=== PATIENT | male | born 1930 | race Caucasian/White ===

== ENCOUNTER → 2016-08-03 | Outpatient (CLI) | payer OTHER, MEDICARE | LOC: BHFA 11:30 | PROVIDERS: ATTEND Internal Medicine Cardiovascular Disease | DX: I08.0 Rheumatic disorders of both mitral and aortic valves (principal); I10 Essential (primary) hypertension; E78.00 Pure hypercholesterolemia, unspecified ==

== ENCOUNTER → 2016-08-24 | Outpatient (CLI) | payer OTHER, MEDICARE | LOC: BHFA 13:15 | PROVIDERS: ATTEND Internal Medicine Cardiovascular Disease | DX: I35.1 Nonrheumatic aortic (valve) insufficiency (principal); R06.00 Dyspnea, unspecified; R94.31 Abnormal electrocardiogram [ECG] [EKG]; R06.02 Shortness of breath | CPT/HCPCS: 78452; 93017; 93306; A9500 ==

== ENCOUNTER 2016-08-31 11:34 | Observation (INO) | payer OTHER, MEDICARE ==
[2016-08-31] MEDS ORDERED: ACETAMINOPHEN 325 MG TAB PO PRN (12:25)
[2016-08-31] MEDS ORDERED: TEMAZEPAM 15 MG CAP PO PRN (12:25)
[2016-08-31] MEDS ORDERED: ONDANSETRON DISINTEGRATING 4 MG TAB PO PRN (12:25)
[2016-08-31] MEDS ORDERED: ONDANSETRON 4 MG/2 ML VIAL IVP PRN (12:25)
[2016-08-31] MEDS ORDERED: NITROGLYCERIN 0.4 MG BTL SL PRN (12:25)
[2016-08-31] MEDS ORDERED: ASPIRIN 325 MG TAB PO ONE (12:34)
--- NOTE | 2016-08-31 12:42 | CPEKG ---
Heart Rate: 46 RR Interval: 1304 P-R Interval: 188 QRSD Interval: 106 QT Interval: 464 QTC Interval: 406 P Beaver: 27 QRS Beaver: -40 T Wave Beaver: -11 EKG Severity - ABNORMAL ECG - EKG Impression: SINUS BRADYCARDIA EKG Impression: LEFT ANTERIOR FASCICULAR BLOCK EKG Impression: LEFT VENTRICULAR HYPERTROPHY EKG Impression: UNCHANGED IN COMPARISON TO ECG FROM APR 2015 EKG Impression: NONSPECIFIC T ABNORMALITIES, INFERIOR LEADS Electronically Signed By: Wicho Gallardo 01-Sep-2016 13:01:57
[2016-08-31 12:48] LABS: % IMMATURE GRANULYOCYTES 0.4 % (0.0-1.1); ABSOLUTE IMMATURE GRANULOCYTES 0.03 10^3/uL (0.00-0.10); ADD DIFF? NO; ADD MORPH? NO; ADD SCAN? NO; ATYPICAL LYMPHOCYTE FLAG 10 (0-99); FRAGMENT RBC FLAG 0 (0-99); HEMATOCRIT 38.4 % (40.0-51.0); HEMOGLOBIN 13.6 g/dL (13.7-17.5); LEFT SHIFT FLG 0 (0-99); LIPEMIA HEMOLYSIS FLAG 90 (0-99); MEAN CELL HEMOGLOBIN 33.3 pg (27.9-34.1); MEAN CELL HEMOGLOBIN CONCENTR. 35.4 g/dL (32.4-36.7); MEAN CELL VOLUME 94.1 fL (81.5-99.8); MEAN PLATELET VOLUME 9.3 fL (8.7-11.7); PLATELET CLUMPS FLAG 0 (0-99); PLATELET COUNT 266 10^3/uL (150-400); RED BLOOD CELL COUNT 4.08 10^6/uL (4.40-6.38); RED CELL DISTRIBUTION WIDTH 12.7 % (11.5-15.2)
[2016-08-31 12:55] LABS: INR 1.07 (0.83-1.16); PROTIME(PATIENT) 13.8 SEC (12.0-15.0)
[2016-08-31 13:18] LABS: ALANINE AMINOTRANSFERASE 26 IU/L (21-72); ALBUMIN 4.2 g/dL (3.5-5.0); ALKALINE PHOSPHATASE 46 IU/L (38-126); ANION GAP 12 mEq/L (8-16); ASPARTATE AMINOTRANSFERASE 31 IU/L (17-59); BILIRUBIN,TOTAL 0.8 mg/dL (0.1-1.4); CALCIUM 9.6 mg/dL (8.5-10.4); CARBON DIOXIDE 21 mEq/l (22-31); CHLORIDE 105 mEq/L (97-110); CREATININE 0.9 mg/dL (0.7-1.3); GLOMERULAR FILTRATION RATE > 60; GLUCOSE 104 mg/dL (70-100); POTASSIUM 4.7 mEq/L (3.5-5.2); SODIUM 138 mEq/L (134-144); TOTAL PROTEIN 7.4 g/dL (6.3-8.2)
[2016-08-31 13:30] LABS: TROPONIN I < 0.012 ng/mL (0-0.034)
[2016-08-31] MEDS ORDERED: ALPRAZolam 0.5 MG TAB PO PRN (13:55)
--- NOTE | 2016-08-31 14:30 | PDCARPN ---
Cardiology Progress Note Chief Complaint: Patient reporting mild midsternal chest pressure. Assessment/Plan: Assessment: Please see my office note dated 08/04/1999 as history and physical. 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 He had reported increased shortness of breath with exertion. On August 24 he underwent echocardiogram which showed mildly dilated LV with normal LV systolic function no regional wall motion abnormalities, EF was estimated at 65% LA was severely dilated, mild aortic sclerosis, moderate to severe AI was noted, mild MR, mild TR and mild TR. RVSP was estimated to be within normal limits. He had also underwent MPI study, showing a medium size, mild intensity fixed mid to distal inferior lateral deficit consistent infarction, no transient ischemic dilation, no wall motion abnormalities. Results were discussed with him on last Monday, and he had been planned to undergo elective right and left coronary catheterization, scheduled for MondaySeptember 02. Unfortunately, he reports over the last day and a half having midsternal chest pressure, with associated symptoms of shortness of breath, no nausea, or diaphoresis. Reporting episodes can last up to 5-10 minutes. The come on spontaneously and then dissipate. He reports no significant weight gain, and has had no palpitations, lightheadedness, orthopnea , PND, near-syncope or syncopal events. Due to the new onset of chest pressure with shortness of breath, abnormal stress testing, it was decided that we will admit him today, cycle his troponins, and plan on for moving of his cardiac catheterization tomorrow morning. Plan: 1. Chest pressure: Patient reporting new onset of chest pressure last 2 days, electrocardiogram shows no significant change from office visit, negative troponin initially. Recent abnormal stress test, will plan on cycling his troponins, he will continue on current anti-platelet therapy of Plavix, and I will also have him take additional aspirin dosage. Due to known history of bradycardia with average heart rate in the 50s, will not start him on beta- blockers at this time. Plan cardiac catheterization in a.m.. If necessary we can always moved up to more urgent. 2. Aortic insufficiency: Has worsen off of most recent echocardiogram, patient reports ongoing shortness of breath, but no significant signs of heart failure. BNP within normal limits. Right and left heart catheterization scheduled for tomorrow. Pending those results, patient may benefit from valve replacement surgery, either traditional or TAVR. 3. Hypertension: Despite being on losartan and hydrochlorothiazide, he continues to have elevated systolic blood pressure. In office it has been shown to be continuously of 150s, today it is 157 despite taking his a.m. doses his BP medications. Will add 2.5 mg of Norvasc to his daily medication regime. 4. Hyperlipidemia: Will continue him on home dose statins, fasting lipid panel in a.m.. 5. Shellfish derived of allergy: Due the patient planning on receiving contrast during heart catheterization in a.m., will premedicate patient with Benadryl IV, Solu-Medrol, and Pepcid. 6. Code status: Patient reports he is a full code. 7. DVT precautions: Since patient is undergoing coronary catheterization in a.m., will not start him on any blood thinners at this time, unless troponins do bump. Have ordered for him to use Jeremy hose, patient is up as needed. 08/31/16 14:30 Subjective: Patient reporting mild midsternal chest pressure, comes on spontaneously dissipates in about 5 minutes. continues to experience dyspnea on exertion. Denies of any orthopnea, PND, edema, near-syncope or syncopal events. Reviewed/Discussed With: other (Dr Lopez) Objective: Vital Signs (8 Hrs) Temp Pulse Resp BP Pulse Ox 08/31/16 12:08 36.2 C 53 L 16 157/66 H 93 Intake/Output (24 Hrs) 08/30/16 08/31/16 09/01/16 05:59 05:59 05:59 Other: Weight 69.3 kg Result Diagrams: 08/31/16 10:48 08/31/16 10:48 Cardiac Labs: Cardiac Lab Results (72 Hrs) 08/31/16 10:48 Troponin I < 0.012 - Physical Exam Constitutional: healthy appearing, no apparent distress Ears, Nose, Mouth, Throat: moist mucous membranes Cardiovascular: regular rate and rhythm, systolic murmur ( 2 to 3/6 upper chest.), No no rubs, No jugular vein distention Peripheral Pulses: 1+: dorsalis-pedis (R), dorsalis-pedis (L), 2+: carotid (R), carotid (L) Respiratory: clear to auscultate bilat, no crackles, no wheezes, No expiratory wheeze Gastrointestinal: normoactive bowel sounds, no tenderness, no masses, No ascites Skin: warm, no edema Neurologic: AAOx3, CN II-XII grossly intact Psychiatric: cooperative, interactive, following commands ICD10 Worksheet Patient Problems: Problems Problem Status Onset Pulmonary fibrosis Acute Viral upper respiratory infection Acute
[2016-08-31] MEDS: DOXAZOSIN MESYLATE 4 MG TAB PO SCH (20:23)
[2016-08-31] MEDS: FINASTERIDE 5 MG TAB PO SCH (20:23)
[2016-08-31] MEDS: traZODone 100 MG TAB PO PRN (21:31)
[2016-09-01 04:40] LABS: ANION GAP 7 mEq/L (8-16); CALCIUM 8.9 mg/dL (8.5-10.4); CARBON DIOXIDE 27 mEq/l (22-31); CHLORIDE 106 mEq/L (97-110); CHOLESTEROL 139 mg/dL (140-220); CHOLESTEROL/HDL RATIO 3.23 RATIO (1.00-4.97); CREATININE 0.9 mg/dL (0.7-1.3); GLOMERULAR FILTRATION RATE > 60; GLUCOSE 98 mg/dL (70-100); HIGH DENSITY LIPOPROTEIN 43 mg/dL (40-65); LDL/HDL RATIO 1.79 RATIO (1.00-3.64); LOW DENSITY LIPOPROTEIN 77 mg/dL (80-100); MAGNESIUM 1.9 mg/dL (1.6-2.3); NON-HIGH DENSITY LIPOPROTEIN 96 mg/dL (90-129); POTASSIUM 4.6 mEq/L (3.5-5.2); SODIUM 140 mEq/L (134-144); TRIGLYCERIDE 95 mg/dL (40-150); VERY LOW DENSITY LIPOPROTEINS 19 mg/dL (8-25)
[2016-09-01 04:51] LABS: TROPONIN I < 0.012 ng/mL (0-0.034)
[2016-09-01] MEDS ORDERED: methylPREDNISolone SOD SUCC 125 MG/2 ML VIAL IVP ONE (06:00)
[2016-09-01] MEDS ORDERED: DIAZEPAM 5 MG TAB PO ONE (06:00)
[2016-09-01] MEDS ORDERED: NS 1,000 ML IV ONE (06:00)
[2016-09-01] MEDS ORDERED: diphenhydrAMINE 25 MG CAP PO ONE (06:00)
[2016-09-01] MEDS ORDERED: FAMOTIDINE 20 MG/NACL 50 ML IV ONE (06:00)
[2016-09-01] MEDS ORDERED: ASPIRIN EC 325 MG TAB PO ONE ×2 (06:00→08:41)
[2016-09-01] MEDS ORDERED: methylPREDNISolone SOD SUCC 125 MG/2 ML VIAL ONE (08:38)
[2016-09-01] MEDS ORDERED: FAMOTIDINE 20 MG/NACL/50 ML BAG IV ONE (08:38)
[2016-09-01] MEDS ORDERED: EPINEPHrine 1 MG/10 ML SYR IVP ONE (08:38)
[2016-09-01] MEDS ORDERED: DIAZEPAM 5 MG TAB ONE (08:41)
--- NOTE | 2016-09-01 08:49 | CPEKG ---
Heart Rate: 46 RR Interval: 1304 P-R Interval: 192 QRSD Interval: 106 QT Interval: 480 QTC Interval: 420 P Woodland: 25 QRS Woodland: -35 T Wave Woodland: -3 EKG Severity - ABNORMAL ECG - EKG Impression: SINUS BRADYCARDIA EKG Impression: LEFT VENTRICULAR HYPERTROPHY EKG Impression: NONSPECIFIC T ABNORMALITIES, INFERIOR LEADS Electronically Signed By: Wicho Gallardo 02-Sep-2016 12:57:24
[2016-09-01] MEDS ORDERED: fentaNYL 100 MCG/2 ML INJ ONE (08:59)
[2016-09-01] MEDS ORDERED: LIDOCAINE 1% 30 ML SDV ONE (08:59)
[2016-09-01] MEDS ORDERED: Herbals/Supplements -Info Only PO SCH (09:00)
[2016-09-01] MEDS ORDERED: IOPAMIDOL (ISOVUE 370) 100 ML BTL IV ONE ×2 (09:00→10:50)
[2016-09-01] MEDS ORDERED: ROSUVASTATIN CALCIUM 2.5 MG PO SCH (09:00)
[2016-09-01] MEDS ORDERED: MIDAZOLAM 2 MG/2 ML VIAL ONE (09:00)
[2016-09-01] MEDS ORDERED: CLOPIDOGREL BISULFATE 75 MG TAB PO SCH (09:00)
[2016-09-01] MEDS ORDERED: HEPARIN 10,000 UNIT/10 ML MDV ONE (10:45)
[2016-09-01] MEDS ORDERED: HYDROCODONE/APAP 5/325 TAB PO PRN (11:20)
[2016-09-01] MEDS ORDERED: ATROPINE SULFATE 1 MG/10 ML SYR IVP PRN (11:20)
--- NOTE | 2016-09-01 11:27 | PDDXCAT ---
Diagnostic Cath Note - . Date: 09/01/16 Electrical Instrumentation Technician: John Indication: other (NYHA Class II to III dyspnea; moderate to severe aortic regurgitation; chest pain.) - Procedure Access: right groin Procedure: left heart catheterization, coronary angiography, left ventriculogram , right heart catheterization, other (Intravascular ultrasound of the LAD) - Materials Left Heart Cath size: 6F Left Heart Cath materials: standard multipack (JL4, JR4, pigtail) Right Heart Cath size: 7F Right Heart Cath materials: PWP catheter - Findings-Left Heart Catheterization LM: Normal. LAD: Mild irregularities; questionable area in mid-LAD just after take-off of principal diagonal branch; appears to 30-40% angiographically; no significant plaque on IVUS. LCX: Mild irregularities. RCA: Mild irregularities. EDP: 16 mmHg LVEF: 45 to 50% Wall motion: Mild global hypokinesis. - Findings-Right Heart Catheterization RA: 12 mmHg RV: 40/10 mmHg PA: 38/14/22 mmHg O2 sat 75.9% PAOP: 14 mmHg AO: 129/41/71 mmHg O2 sat 94.5% CO: 6.38 L/min CI: 3.63 L/min/sq mtr Estimated blood loss: <50ml Closure method: Angioseal Assessment: 1) Mildly reduced LV systolic function. 2) Minimal coronary atherosclerosis. 3) Wide pulse pressure secondary to known moderate to severe AR. 4) Mildly elevated PA pressure. Plan: CT surgery consult. Patient Problems: Problems Problem Status Onset Pulmonary fibrosis Acute Viral upper respiratory infection Acute
[2016-09-01] MEDS: HYDROCHLOROTHIAZIDE 25 MG TAB PO SCH (18:16)
[2016-09-01] MEDS: MULTIVITAMINS 1 EACH TAB PO SCH (18:16)
[2016-09-01] MEDS: LOSARTAN POTASSIUM 50 MG TAB PO SCH (18:16)
[2016-09-01] MEDS: ROSUVASTATIN CALCIUM 10 MG TAB PO SCH (18:38)
--- NOTE | 2016-09-01 20:06 | GCON ---
[f rep st] CONSULTATION Performed at the request of Dr. Lopez with the patient's permission. IMPRESSION: 1. Severe aortic regurgitation, symptomatic, with increasing left ventricular dimensions. 2. Mild coronary artery disease without obstruction. 3. Pulmonary fibrosis by history, appears mild. Will obtain outside records. 4. Hypertension. RECOMMENDATIONS: This gentleman represents an excellent candidate for aortic valve replacement. Hi s risk is moderately increased because of age and LV dimensions. Because of his lack of coronary di sease and isolated aortic valve disease, I will evaluate him for minimally invasive approach to mini cirilo his risk and recovery. He is a very active, otherwise healthy gentleman who is quite physicall y fit despite his age. Risk probably approaches 5%. Patient is willing to proceed with surgery and accepts shoe risks and wishes to have full support postoperatively, including prolonged intubation and dialysis if necessary. CHIEF COMPLAINT: Shortness of breath and chest pain. HISTORY OF COMPLAINT: This gentleman has had 3-4 months of marked decreased exercise capacity with marked shortness of breath and new onset of chest discomfort. He had a noninvasive stress test whic h showed no EKG changes consistent with ischemia. He called Dr. Lopez, who had begun treatment w ith Dy[facility] as an outpatient. Complaining of extreme shortness of breath and chest discomfort, was admitted to the hospital and underwent diagnostic left and right heart cath today. His coronary les ions were not significantly obstructive. His ventricular function appeared to be preserved. He has severe aortic insufficiency with LV and diastolic dimensions increasing from 5.7 to 6 cm. Because of his marked dyspnea on exertion, he is being referred for surgical intervention. Discussed the op tions of medical and surgical therapy, and because of his desire to maintain full activities, he wis hes to proceed with surgery. We discussed TAVR, which is not approved for aortic insufficiency alexia use of lack of bulk for seating of the valve, and he was well aware of that, having consulted with khadijah barriga [facility] as well. MEDICAL HISTORY: As listed in the chart. Back surgery, knee surgery, and laminectomy. He was on a lprazolam, clopidogrel, CoQ10, Crestor, doxazosin, finasteride, losartan, multivitamins, and trazodo ne. ALLERGIES: Sulfa. SOCIALLY: He has 6 children. He has never drunk. He rarely drinks coffee. Exercises regularly. 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 REVIEW OF SYSTEMS: Except for his admitting complaints, he is entirely asymptomatic. PHYSICAL EXAMINATION: CONSTITUTIONAL: A slightly overweight elderly gentleman, appears younger magy n stated age. VITAL SIGNS: Blood pressure was 144/46, heart rate 80, respirations 14, slightly lab ored. HEENT: Normocephalic. PERRLA. EOMI. NECK: Without bruit, adenopathy, or thyromegaly. HE ART: Diastolic murmur. Soft systolic murmur. DIAGNOSTICS: Echo reveals mild mitral and tricuspid regurgitation with [id number] aortic re gurgitation. PA pressures were modestly increased to approximately 40. Please see cath report for details. /[id number]/MODL
[2016-09-01] MEDS: DOXAZOSIN MESYLATE 4 MG TAB PO SCH (21:29)
[2016-09-01] MEDS: FINASTERIDE 5 MG TAB PO SCH (21:29)
[2016-09-01] MEDS: traZODone 100 MG TAB PO PRN (22:01)
[2016-09-02 07:23] VITALS: BP 125/95; PULSE 80; RESP 16; TEMP 97.5; O2SAT 94
[2016-09-02] MEDS: ROSUVASTATIN CALCIUM 10 MG TAB PO SCH (08:55)
[2016-09-02] MEDS: MULTIVITAMINS 1 EACH TAB PO SCH (08:56)
[2016-09-02] MEDS: HYDROCHLOROTHIAZIDE 25 MG TAB PO SCH (08:56)
[2016-09-02] MEDS: LOSARTAN POTASSIUM 50 MG TAB PO SCH (08:57)
--- NOTE | 2016-09-02 12:32 | GDS ---
[f rep st] DISCHARGE SUMMARY REASON FOR ADMISSION: Valvular heart disease. HOSPITAL COURSE: Please refer to the recent [facility] office note and to Reji Pedroza NP's initial progress note. 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 When I saw him last March, he was stable without s ymptoms. However, over the past several weeks, he developed worsening episodes of significant dyspn ea with exertion including some chest tightness. He underwent an exercise stress test in our office on August 24, which suggested a fixed inferior defect on perfusion imaging. He was supposed to follo w up with me later in the month of August. However, because of escalating issues with dyspnea on exe rtion and chest pressure, he was admitted to the hospital for observation and further workup. An ec hocardiogram performed recently in our office demonstrated that his aortic regurgitation is now mode rate to severe, and he has mild left ventricular dilatation. Yesterday, cardiac catheterization was performed, which demonstrated trace irregularities in the coronaries. He had mild pulmonary hypert ension with a PA systolic pressure of approximately 40 mmHg, which is likely secondary to his histor y of pulmonary fibrosis. The patient was seen in consultation by Dr. Sam Esteves. He is now antici pating having a minimally invasive aortic valve replacement surgery performed on September 12. At this point, he is stable for discharge. A BNP level performed during this hospital stay was minimally el evated at 201. He did not demonstrate any evidence for volume overload/acute CHF. RECOMMENDATIONS AND DISPOSITION: The patient is discharged in stable condition. He was advised to avoid strenuous activity until the time of his surgery. Please refer to the medication reconciliati on section for medications. The only notable change is that he will hold his daily clopidogrel from now until his surgery. DISCHARGE DIAGNOSES: 1. Aortic regurgitation. 2. Chest discomfort and dyspnea on exertion. /[id number]/MODL
== END 2016-09-02 11:42 | disposition home or self-care (01) ==
LOC: F2W 11:34 → INTOOBSV 11:34 → EDSTATUS 09-02 09:30
PROVIDERS: ADMIT Internal Medicine Interventional Cardiology; ATTEND Internal Medicine Interventional Cardiology
PROC: B2161ZZ Fluoroscopy of Right and Left Heart using Low Osmolar Contrast (ICD-10-PCS; principal; 2016-08-31)
PROC: B2111ZZ Fluoroscopy of Multiple Coronary Arteries using Low Osmolar Contrast (ICD-10-PCS; principal; 2016-08-31)
PROC: 4A023N8 Measurement of Cardiac Sampling and Pressure, Bilateral, Percutaneous Approach (ICD-10-PCS; principal; 2016-08-31)
DX: I35.1 Nonrheumatic aortic (valve) insufficiency (principal); R07.89 Other chest pain; R06.09 Other forms of dyspnea; I25.10 Atherosclerotic heart disease of native coronary artery without angina pectoris; I10 Essential (primary) hypertension; J84.10 Pulmonary fibrosis, unspecified; E78.5 Hyperlipidemia, unspecified; Z91.013 Allergy to seafood
CPT/HCPCS: 71250; 92978; 93005; 93460; 93880; C1753; C1760; C1769; C1887; G0378; G0379; J1200; J1644; J2250; J3010; Q9967

== ENCOUNTER → 2016-09-05 | Outpatient (CLI) | payer OTHER, MEDICARE ==
[~2016-09-05] MED LIST: IOPAMIDOL (ISOVUE-300) 100 ML BTL IV ONE
== END ==
LOC: FIMAGING 09:39
PROVIDERS: ATTEND Thoracic Surgery (Cardiothoracic Vascular Surgery)
DX: N28.89 Other specified disorders of kidney and ureter (principal)
CPT/HCPCS: 74170; Q9967

== ENCOUNTER 2016-09-21 05:38 | Inpatient (IN) | payer OTHER, MEDICARE ==
[2016-09-21] MEDS ORDERED: INSULIN REGULAR HUMAN 100 UNIT in NS 100 ML IV ONE (06:00)
[2016-09-21] MEDS ORDERED: ceFAZolin 2 GM/DEXTROSE 100 ML IV ONE (06:00)
[2016-09-21] MEDS ORDERED: CITRATE DEXTROSE SOLN 500 ML BAG MISC ONE (06:00)
[2016-09-21] MEDS ORDERED: SODIUM BICARBONATE 20 MEQ, LIDOCAINE 1% 10 ML in NORMOSOL-R 1,000 ML MISC ONE (06:00)
[2016-09-21] MEDS ORDERED: LIDOCAINE 1% 5 ML SDV ID PRN ×2 (06:00→06:21)
[2016-09-21] MEDS ORDERED: PHENYLEPHRINE HCL 50 MG in NS 250 ML IV ONE (06:00)
[2016-09-21] MEDS ORDERED: MANNITOL 25% 12.5 GM/50 ML VIAL IV ONE (06:00)
[2016-09-21] MEDS ORDERED: niCARdipine/NACL 200 ML IV ONE (06:00)
[2016-09-21] MEDS ORDERED: AMINOCAPROIC ACID 5 GM/20 ML VIAL IV ONE (06:00)
[2016-09-21] MEDS ORDERED: NOREPINEPHRINE BITARTRATE 16 MG in NS 250 ML IV ONE (06:00)
[2016-09-21] MEDS ORDERED: NS 1,000 ML IV ONE (06:00)
[2016-09-21] MEDS ORDERED: LR 1,000 ML IV ONE (06:21)
[2016-09-21] MEDS ORDERED: ALBUMIN 5% 250 ML BOTTLE IV ONE ×2 (06:28→09:25)
[2016-09-21] MEDS ORDERED: MILRINONE/DEXTROSE/100 ML BAG IV ONE (06:28)
[2016-09-21] MEDS ORDERED: CALCIUM CHLORIDE 1 GM/10 ML INJ ONE (06:28)
[2016-09-21] MEDS ORDERED: PROTAMINE SULFATE 50 MG/5 ML VIAL IVP ONE (06:28)
[2016-09-21] MEDS ORDERED: niCARdipine/NACL/200 ML BAG IV ONE (06:29)
[2016-09-21] MEDS ORDERED: NA BICARBONATE 50 MEQ/50 ML VIAL ONE (06:29)
[2016-09-21] MEDS ORDERED: AMINOCAPROIC ACID 5 GM/20 ML VIAL ONE (06:29)
[2016-09-21] MEDS ORDERED: ADENOSINE 6 MG/2 ML VIAL ONE (06:29)
[2016-09-21] MEDS ORDERED: DOPamine/DEXTROSE/250 ML BAG IV ONE (06:29)
[2016-09-21] MEDS ORDERED: MAGNESIUM SULFATE 1 GM/2 ML VIAL ONE (06:29)
[2016-09-21] MEDS ORDERED: CITRATE DEXTROSE SOLN 500 ML BAG ONE (06:29)
[2016-09-21] MEDS ORDERED: POTASSIUM Cl (KCl) 20 MEQ/50 ML BAG IV ONE (06:29)
[2016-09-21] MEDS ORDERED: AMIODARONE HCL 150 MG/3 ML VIAL ONE (06:29)
[2016-09-21] MEDS ORDERED: LIDOCAINE 2% 100 MG/5 ML SYR ONE (06:29)
[2016-09-21] MEDS ORDERED: ceFAZolin 1 GM VIAL ONE (06:30)
[2016-09-21] MEDS ORDERED: HEPARIN 10,000 UNIT/10 ML MDV ONE (06:30)
[2016-09-21] MEDS ORDERED: methylPREDNISolone SOD SUCC 1 GM/8 ML VIAL ONE (06:30)
[2016-09-21] MEDS ORDERED: LIDOCAINE 1% 2 ML INJ ONE (06:35)
[2016-09-21] MEDS ORDERED: fentaNYL 250 MCG/5 ML INJ ONE ×2 (07:02)
[2016-09-21] MEDS ORDERED: PROPOFOL/EMULSION 500 MG/50 ML BOTTLE IV ONE (07:07)
[2016-09-21] MEDS ORDERED: MIDAZOLAM 2 MG/2 ML VIAL ONE (07:11)
[2016-09-21] MEDS ORDERED: DEXMEDETOMIDINE HCL 400 MCG in NS 100 ML IV SCH (09:00)
[2016-09-21] MEDS ORDERED: MINERAL OIL 10 ML VIAL TP ONE (09:14)
[2016-09-21] MEDS ORDERED: MAGNESIUM SULF 2 GM/WATER 50 ML BAG IV ONE (09:26)
[2016-09-21] MEDS: MUPIROCIN 2% 22 GM OINT NS SCH ×2 (09:53→20:27)
[2016-09-21] MEDS ORDERED: fentaNYL 100 MCG/2 ML INJ ONE (10:06)
[2016-09-21] MEDS ORDERED: METOCLOPRAMIDE 10 MG/2 ML VIAL IVP PRN (10:32)
[2016-09-21] MEDS ORDERED: MEPERIDINE 25 MG/ML SYR IVP PRN (10:32)
[2016-09-21] MEDS ORDERED: ACETAMINOPHEN 325 MG TAB PO PRN (10:32)
[2016-09-21] MEDS ORDERED: BISACODYL 10 MG SUPP PR PRN (10:32)
[2016-09-21] MEDS ORDERED: PANTOPRAZOLE SODIUM 40 MG in NS 100 ML IV ONE (10:32)
[2016-09-21] MEDS ORDERED: MAGNESIUM HYDROXIDE 30 ML UDCUP PO PRN (10:32)
[2016-09-21] MEDS ORDERED: POTASSIUM Cl (KCl) 50 ML IV PRN (10:32)
[2016-09-21] MEDS ORDERED: POLYETHYLENE GLYCOL 3350 17 GM PKT PO PRN (10:32)
[2016-09-21] MEDS ORDERED: SODIUM CL NASAL 45 ML BTL EACHNARE PRN (10:32)
[2016-09-21] MEDS ORDERED: MAGNESIUM SULF 2 GM/WATER 50 ML IV ONE (10:32)
[2016-09-21] MEDS ORDERED: ACETAMINOPHEN 650 MG SUPP PR PRN (10:32)
[2016-09-21] MEDS ORDERED: ONDANSETRON DISINTEGRATING 4 MG TAB PO PRN (10:32)
[2016-09-21] MEDS ORDERED: LACTULOSE 20 GM/30 ML UDCUP PO PRN (10:32)
[2016-09-21] MEDS ORDERED: D50W 25 GM/50 ML SYR IVP PRN (10:32)
[2016-09-21] MEDS ORDERED: CEPACOL LOZENGE PO PRN (10:32)
[2016-09-21] MEDS ORDERED: NS 1,000 ML IV SCH (10:45)
[2016-09-21] MEDS ORDERED: INSULIN REGULAR HUMAN 100 UNIT in NS 100 ML IV SCH (11:00)
[2016-09-21] MEDS: ALBUMIN 5% 250 ML IV PRN ×2 (11:59→13:21)
[2016-09-21] MEDS ORDERED: KETOROLAC 15 MG/1 ML SDV IVP SCH (12:00)
[2016-09-21] MEDS: ceFAZolin 2 GM/DEXTROSE 100 ML IV SCH ×2 (13:21→21:32)
[2016-09-21] MEDS: fentaNYL 100 MCG/2 ML INJ IVP PRN ×5 (14:05→22:42)
--- NOTE | 2016-09-21 14:58 | POSTOPPROG ---
Post Op Note Date of Operation: 09/21/16 Surgeon: Sam Esteves Tire Worker: Javier Anesthesiologist: Ilya Anesthesia: GET(General Endotracheal) Pre-op Diagnosis: ASHD, Procedure: AVR #23 Magna, SVG-RCA, Atriclip SEBASTIAN Inf/Abcess present in the surg proc area at time of surgery?: No EBL: 50-100 Drains: Other (2 blakes)
--- NOTE | 2016-09-21 15:02 | POSTOPPROG ---
Post Op Note Date of Operation: 09/21/16 Surgeon: Sam Esteves Personal Lines Account Manager: Javier Anesthesiologist: Ilya Anesthesia: GET(General Endotracheal) Pre-op Diagnosis: Procedure: MICS AVR #23 Magna Inf/Abcess present in the surg proc area at time of surgery?: No EBL: Minimal Drains: Other (1 kristine)
[2016-09-21] MEDS: ONDANSETRON 4 MG/2 ML VIAL IVP PRN ×2 (16:06→22:43)
--- NOTE | 2016-09-21 16:09 | GOP ---
[f rep st] OPERATIVE REPORT DATE OF OPERATION: 09/21/2016 SURGEON: Sam Esteves DO ANGLESMITH: Tressa Herrera PA-C. ANESTHESIOLOGIST: Irwin Caraballo MD. PREOPERATIVE DIAGNOSIS: Severe aortic insufficiency. POSTOPERATIVE DIAGNOSIS: Severe aortic insufficiency. PROCEDURE PERFORMED: 1. Minimally invasive partial sternotomy. 2. Aortic valve replacement with a #23 Magna bioprosthesis. FINDINGS: DESCRIPTION OF PROCEDURE: The patient was consented for surgery, brought to the operating room, int ubated, monitoring lines were placed. He was prepped and draped in a sterile classical manner. A 3 -inch incision over the upper sternum was performed, and the oscillating saw was used to transect th e sternum at approximately the 3rd intercostal space, and a partial sternotomy was performed with a standard saw. Bleeding was controlled. He was heparinized. A sternal retractor was placed. Peric ardium was opened. The aorta was soft without calcification. He was cannulated in a standard fashi on with an antegrade aortic placed arterial cannula and a venous cannula. Cardiopulmonary bypass wa s begun. The aorta was cross clamped. The aortotomy was performed, and direct cardioplegia was adm inistered to the coronary ostia until cardiac arrest was obtained. I then placed a PA vent in order to decompress the left ventricle and subsequently excised a noncalcified trileaflet valve which was thickened and retracted. He measured for a 23 mm valve which was sutured in place to the supra-elicia ular interrupted 2-0 Tycron pledgeted mattress sutures without difficulty utilizing core knots. Two -layer aortotomy was performed. It should be noted that we copiously irrigated the LV chamber. Two -layer closure of the aortotomy was performed. The cross-clamp was removed with suction on the asce nding aortic vent. Spontaneous cardiac activity was noted to resume. CO2 had been infused througho ut the procedure. No further air was identified. He was weaned from bypass. Heparin was reversed with protamine. The cannula was removed and oversewn. One mediastinal drain and 2 ventricular paci ng wires were placed. The sternum was closed in standard fashion. Dressings were applied. The [facility] ient was returned to ICU in stable condition. /[id number]/MODL
[2016-09-21] MEDS: HYDROCODONE/APAP 5/325 TAB PO PRN ×2 (17:23→19:34)
[2016-09-21 17:33] LABS: % IMMATURE GRANULYOCYTES 0.9 % (0.0-1.1); ABSOLUTE IMMATURE GRANULOCYTES 0.14 10^3/uL (0.00-0.10); ADD DIFF? NO; ADD MORPH? NO; ADD SCAN? NO; ATYPICAL LYMPHOCYTE FLAG 0 (0-99); FRAGMENT RBC FLAG 0 (0-99); HEMATOCRIT 29.4 % (40.0-51.0); HEMOGLOBIN 10.6 g/dL (13.7-17.5); LEFT SHIFT FLG 10 (0-99); LIPEMIA HEMOLYSIS FLAG 90 (0-99); MEAN CELL HEMOGLOBIN 33.8 pg (27.9-34.1); MEAN CELL HEMOGLOBIN CONCENTR. 36.1 g/dL (32.4-36.7); MEAN CELL VOLUME 93.6 fL (81.5-99.8); MEAN PLATELET VOLUME 9.6 fL (8.7-11.7); PLATELET CLUMPS FLAG 0 (0-99); PLATELET COUNT 102 10^3/uL (150-400); RED BLOOD CELL COUNT 3.14 10^6/uL (4.40-6.38); RED CELL DISTRIBUTION WIDTH 13.1 % (11.5-15.2)
[2016-09-21 18:15] LABS: CALCULATED OXYGEN SATURATION 97 % (92-95); O2 CONCENTRATIION 100 % (0-100)
[2016-09-21 18:15] LABS: CALCULATED OXYGEN SATURATION 94 % (92-95)
[2016-09-21] MEDS: HEPARIN 5,000 UNIT/0.5 ML SYR SC SCH (22:43)
[2016-09-22] MEDS: HYDROCODONE/APAP 5/325 TAB PO PRN ×2 (00:01→04:42)
[2016-09-22] MEDS: fentaNYL 100 MCG/2 ML INJ IVP PRN ×4 (00:09→06:05)
[2016-09-22 04:22] LABS: % IMMATURE GRANULYOCYTES 0.5 % (0.0-1.1); ABSOLUTE IMMATURE GRANULOCYTES 0.09 10^3/uL (0.00-0.10); ADD DIFF? NO; ADD MORPH? NO; ADD SCAN? NO; ATYPICAL LYMPHOCYTE FLAG 0 (0-99); FRAGMENT RBC FLAG 0 (0-99); HEMATOCRIT 29.5 % (40.0-51.0); HEMOGLOBIN 10.3 g/dL (13.7-17.5); LEFT SHIFT FLG 10 (0-99); LIPEMIA HEMOLYSIS FLAG 90 (0-99); MEAN CELL HEMOGLOBIN 33.8 pg (27.9-34.1); MEAN CELL HEMOGLOBIN CONCENTR. 34.9 g/dL (32.4-36.7); MEAN CELL VOLUME 96.7 fL (81.5-99.8); MEAN PLATELET VOLUME 10.1 fL (8.7-11.7); PLATELET CLUMPS FLAG 20 (0-99); PLATELET COUNT 106 10^3/uL (150-400); RED BLOOD CELL COUNT 3.05 10^6/uL (4.40-6.38); RED CELL DISTRIBUTION WIDTH 13.3 % (11.5-15.2)
[2016-09-22 04:50] LABS: ANION GAP 8 mEq/L (8-16); CARBON DIOXIDE 21 mEq/l (22-31); CHLORIDE 112 mEq/L (97-110); CREATININE 0.8 mg/dL (0.7-1.3); GLOMERULAR FILTRATION RATE > 60; GLUCOSE 125 mg/dL (70-100); POTASSIUM 4.3 mEq/L (3.5-5.2); SODIUM 141 mEq/L (134-144)
[2016-09-22] MEDS: HEPARIN 5,000 UNIT/0.5 ML SYR SC SCH ×3 (06:09→22:46)
[2016-09-22] MEDS: ceFAZolin 2 GM/DEXTROSE 100 ML IV SCH ×3 (06:09→22:46)
[2016-09-22] MEDS: ONDANSETRON 4 MG/2 ML VIAL IVP PRN ×2 (06:24→08:24)
--- NOTE | 2016-09-22 07:17 | SOAPPROG ---
SOAP Progress Note Assessment/Plan: Assessment: POD#1 MICS AVR 23 mm Grover Magna bovine pericardial bioprosthesis Sx severe AI - s/p tissue AVR via partial sternotomy/upper inverse T with central CPB. Stable early postop course. No vasoactive support, tachyarrhythmias , or sustained backup pacing. Antithrombotic prophylaxis with ASA pending stability of rhythm. Dilated cardiomyopathy w chronic dCHF - Preserved LV systolic fx. Off CPB without incident. No significant volume overload. Heart failure regimen as tolerated when appropriate. Nonobstructive CAD - Stable. No apparent periop ischemia. Secondary prevention with ASA, BB as allowed by heart rate, and statin when eating well. Acute expected blood loss anemia - Stable. No blood products transfused. Left renal mass - Incidental finding during imaging for MICS candidacy. Presumed CA, early stage. Followup with nephrology planned once recovered from surgery. Idiopathic pulmonary fibrosis - Stable. Extubated without incident. Modest suppl O2 requirement. Postoperative nausea - Exacerbated by narcotics. To transition to multimodal strategy w tylenol and NSAID. Antiemetics prn. Plan: Routine POD#1 orders re wires, orals and mobility. 30mg IV toradol x 1. 15mg q6 prn x 24 hr so long as Cr ok. Inc activity as tolerated. Slow advancement of diet. Consider maintenance IVF if nausea persists. Ok for tx to PCU. 09/22/16 07:13 Subjective: More pain than anticipated. Nausea with narcs. No wretching or vomiting but feels pretty lousy. Doing his best to comply with OOB. Objective: Vital Signs Temp Pulse Resp BP Pulse Ox 36.8 C 61 22 H 134/55 H 95 09/22/16 04:00 09/22/16 06:00 09/22/16 06:00 09/22/16 06:00 09/22/16 06:00 Laboratory Results 09/22/16 03:55 09/22/16 03:55 09/21/16 09/22/16 09/23/16 05:59 05:59 05:59 Intake Total 1843.6 Output Total 1760 Balance 83.6 Almanza and deepak out yest. Vpaced early postop but acceptable hemodynamics in SR/SB. HRs 50s overnoc, up to 60s this am. Balanced I/O w stable renal fx. CXR-> No PTX, mild pulm vasc congestion, bibasilar atelectasis. 2 Lpm suppl O2 req. Mediastinal drain no sig output. Physical Exam - Physical Exam General Appearance: alert, mild distress (trying to be sociable, but intermittently wincing in pain) Respiratory: lungs clear (grossly), other (kristine drain to bulb suction, thin serosang drainage) Cardiac/Chest: bradycardia, other (Sternum grossly stable. Sternotomy CDI) Abdomen: normal bowel sounds, non-tender, soft Skin: warm/dry Extremities: other (no visible edema) ICD10 Worksheet Patient Problems: Problems Problem Status Onset Acute blood loss anemia Acute Chronic diastolic congestive heart failure Acute S/P aortic valve replacement with bioprosthetic valve Acute ~09/21/16 Severe aortic valve regurgitation Acute Pulmonary fibrosis Chronic
[2016-09-22] MEDS ORDERED: KETOROLAC 30 MG/1 ML SDV ONE (08:07)
[2016-09-22] MEDS ORDERED: KETOROLAC 30 MG/1 ML SDV IVP ONE (08:09)
[2016-09-22] MEDS ORDERED: ASPIRIN 81 MG CHEWABLE TAB TUBE PRN (09:00)
[2016-09-22] MEDS: MUPIROCIN 2% 22 GM OINT NS SCH ×2 (09:38→21:10)
[2016-09-22] MEDS: HYDROCHLOROTHIAZIDE 25 MG TAB PO SCH (09:39)
[2016-09-22] MEDS: PANTOPRAZOLE SODIUM 40 MG TAB PO SCH ×2 (09:39→10:31)
[2016-09-22] MEDS: ASPIRIN 81 MG CHEWABLE TAB PO SCH (09:39)
[2016-09-22] MEDS ORDERED: DEXAMETHASONE 10 MG/ML VIAL IVP ONE (09:59)
[2016-09-22] MEDS: PANTOPRAZOLE SODIUM 40 MG in NS 100 ML IV SCH ×2 (10:30→21:10)
[2016-09-22] MEDS ORDERED: PROMETHAZINE HCL 12.5 MG SUPPR PR PRN (11:02)
[2016-09-22] MEDS ORDERED: CALCIUM CARBONATE 500 MG CHEWABLE TAB PO PRN (11:04)
[2016-09-22] MEDS ORDERED: LORazepam 2 MG/ML INJ IVP PRN (11:09)
[2016-09-22] MEDS ORDERED: LORazepam 2 MG/ML INJ ONE (11:14)
[2016-09-22] MEDS: LORazepam 2 MG/ML INJ IVP PRN ×3 (11:16→21:09)
[2016-09-22] MEDS: KETOROLAC 15 MG/1 ML SDV IVP SCH ×2 (14:09→18:18)
[2016-09-22] MEDS ORDERED: PANTOPRAZOLE SODIUM 40 MG in NS 100 ML IV SCH (21:00)
[2016-09-22] MEDS: FINASTERIDE 5 MG TAB PO SCH (21:09)
[2016-09-22] MEDS: DOXAZOSIN MESYLATE 4 MG TAB PO SCH (21:09)
[2016-09-22] MEDS: SENNOSIDES/DOCUSATE SODIUM TAB PO SCH (21:09)
[2016-09-22] MEDS: traZODone 100 MG TAB PO PRN (22:46)
[2016-09-23] MEDS: KETOROLAC 15 MG/1 ML SDV IVP SCH (00:03)
[2016-09-23] MEDS: LORazepam 2 MG/ML INJ IVP PRN (01:21)
[2016-09-23 04:35] LABS: % IMMATURE GRANULYOCYTES 0.6 % (0.0-1.1); ABSOLUTE IMMATURE GRANULOCYTES 0.11 10^3/uL (0.00-0.10); ADD DIFF? NO; ADD MORPH? NO; ADD SCAN? NO; ATYPICAL LYMPHOCYTE FLAG 0 (0-99); FRAGMENT RBC FLAG 0 (0-99); HEMATOCRIT 28.5 % (40.0-51.0); HEMOGLOBIN 9.9 g/dL (13.7-17.5); LEFT SHIFT FLG 10 (0-99); LIPEMIA HEMOLYSIS FLAG 90 (0-99); MEAN CELL HEMOGLOBIN 33.6 pg (27.9-34.1); MEAN CELL HEMOGLOBIN CONCENTR. 34.7 g/dL (32.4-36.7); MEAN CELL VOLUME 96.6 fL (81.5-99.8); MEAN PLATELET VOLUME 10.7 fL (8.7-11.7); PLATELET CLUMPS FLAG 0 (0-99); PLATELET COUNT 105 10^3/uL (150-400); RED BLOOD CELL COUNT 2.95 10^6/uL (4.40-6.38); RED CELL DISTRIBUTION WIDTH 13.8 % (11.5-15.2)
[2016-09-23 04:55] LABS: ANION GAP 8 mEq/L (8-16); CALCIUM 8.3 mg/dL (8.5-10.4); CARBON DIOXIDE 23 mEq/l (22-31); CHLORIDE 109 mEq/L (97-110); GLOMERULAR FILTRATION RATE > 60; GLUCOSE 133 mg/dL (70-100); POTASSIUM 4.7 mEq/L (3.5-5.2); SODIUM 140 mEq/L (134-144)
[2016-09-23] MEDS: HEPARIN 5,000 UNIT/0.5 ML SYR SC SCH ×3 (06:16→21:20)
[2016-09-23] MEDS: SENNOSIDES/DOCUSATE SODIUM TAB PO SCH ×2 (07:45→20:43)
[2016-09-23] MEDS: ASPIRIN 81 MG CHEWABLE TAB PO SCH (07:46)
[2016-09-23] MEDS: HYDROCHLOROTHIAZIDE 25 MG TAB PO SCH (07:46)
[2016-09-23] MEDS: MULTIVITAMINS 1 EACH TAB PO SCH (07:46)
[2016-09-23] MEDS: ROSUVASTATIN CALCIUM 10 MG TAB PO SCH (07:46)
--- NOTE | 2016-09-23 07:54 | SOAPPROG ---
SOAP Progress Note Assessment/Plan: POD#2 MICS AVR 23 mm Grover Magna bovine pericardial bioprosthesis Sx severe AI - s/p tissue AVR via partial sternotomy/upper inverse T with central CPB. Stable early postop course. No vasoactive support, tachyarrhythmias , or sustained backup pacing. Antithrombotic prophylaxis with ASA pending stability of rhythm. Dilated cardiomyopathy w chronic dCHF - Preserved LV systolic fx. Off CPB without incident. No significant volume overload. Heart failure regimen as tolerated when appropriate. Nonobstructive CAD - Stable. No apparent periop ischemia. Secondary prevention with ASA, BB as allowed by heart rate, and statin when eating well. Acute expected blood loss anemia - Stable. No blood products transfused. Left renal mass - Incidental finding during imaging for MICS candidacy. Presumed CA, early stage. Followup with nephrology planned once recovered from surgery. Idiopathic pulmonary fibrosis - Stable. Extubated without incident. Modest suppl O2 requirement. Postoperative nausea - Resolved. Subjective: Feels well. Denies SOB/CP. Objective: Vital Signs Temp Pulse Resp BP Pulse Ox 36.7 C 51 L 17 122/97 H 98 09/23/16 00:00 09/23/16 04:00 09/23/16 04:00 09/23/16 04:00 09/23/16 04:00 Laboratory Results 09/23/16 04:20 09/23/16 04:20 09/22/16 09/23/16 09/24/16 05:59 05:59 05:59 Intake Total 1843.6 900 Output Total 1760 920 200 Balance 83.6 -20 -200 Physical Exam - Physical Exam General Appearance: WD/WN, alert, no apparent distress EENT: normal ENT inspection Neck: normal inspection Respiratory: No respiratory distress Cardiac/Chest: bradycardia Abdomen: non-tender, soft, No distended Skin: normal color, warm/dry Neuro/Psych: no motor/sensory deficits, alert, normal mood/affect, oriented x 3 ICD10 Worksheet Patient Problems: Problems Problem Status Onset Acute blood loss anemia Acute Chronic diastolic congestive heart failure Acute S/P aortic valve replacement with bioprosthetic valve Acute ~09/21/16 Severe aortic valve regurgitation Acute Pulmonary fibrosis Chronic
[2016-09-23] MEDS: PANTOPRAZOLE SODIUM 40 MG TAB PO SCH ×2 (08:55→20:43)
[2016-09-23] MEDS ORDERED: LOSARTAN POTASSIUM 25 MG TAB PO SCH (09:00)
[2016-09-23] MEDS ORDERED: NON-FORMULARY NEW DRUG (Rosuvastatin Calcium [Crestor 5mg] 5 MG) PO SCH (09:00)
[2016-09-23] MEDS: traMADol 50 MG TAB PO PRN ×2 (12:05→16:58)
[2016-09-23] MEDS ORDERED: ALPRAZolam 0.5 MG TAB PO PRN (12:30)
[2016-09-23] MEDS: ALPRAZolam 1 MG TAB PO PRN ×2 (13:19→18:18)
[2016-09-23] MEDS: HYDROCODONE/APAP 5/325 TAB PO PRN (18:17)
[2016-09-23] MEDS: DOXAZOSIN MESYLATE 4 MG TAB PO SCH (20:43)
[2016-09-23] MEDS: FINASTERIDE 5 MG TAB PO SCH (20:43)
[2016-09-23] MEDS: traZODone 100 MG TAB PO PRN (21:15)
[2016-09-24] MEDS: HYDROCODONE/APAP 5/325 TAB PO PRN (02:34)
[2016-09-24] MEDS: ALPRAZolam 1 MG TAB PO PRN (02:37)
[2016-09-24] MEDS: HEPARIN 5,000 UNIT/0.5 ML SYR SC SCH (05:45)
[2016-09-24 06:17] LABS: HEMOGLOBIN 8.8 g/dL (13.7-17.5); MEAN CELL HEMOGLOBIN 33.5 pg (27.9-34.1); MEAN CELL HEMOGLOBIN CONCENTR. 33.8 g/dL (32.4-36.7); MEAN CELL VOLUME 98.9 fL (81.5-99.8); RED BLOOD CELL COUNT 2.63 10^6/uL (4.40-6.38); RED CELL DISTRIBUTION WIDTH 13.6 % (11.5-15.2)
[2016-09-24 06:26] LABS: ANION GAP 4 mEq/L (8-16); CALCIUM 7.9 mg/dL (8.5-10.4); CARBON DIOXIDE 27 mEq/l (22-31); CHLORIDE 107 mEq/L (97-110); CREATININE 0.8 mg/dL (0.7-1.3); GLOMERULAR FILTRATION RATE > 60; GLUCOSE 124 mg/dL (70-100); POTASSIUM 4.5 mEq/L (3.5-5.2); SODIUM 138 mEq/L (134-144)
--- NOTE | 2016-09-24 07:55 | SOAPPROG ---
SOAP Progress Note Assessment/Plan: Assessment: POD#3 MICS AVR 23 mm Grover Magna bovine pericardial bioprosthesis Sx severe AI - s/p tissue AVR via partial sternotomy/upper inverse T with central CPB. Stable early postop course. No vasoactive support, tachyarrhythmias , or sustained backup pacing. Chest tube out. Antithrombotic prophylaxis with ASA pending stability of rhythm. Dilated cardiomyopathy w chronic dCHF - Preserved LV systolic fx. Off CPB without incident. No significant volume overload. Heart failure regimen as tolerated when appropriate. Nonobstructive CAD - Stable. No apparent periop ischemia. Secondary prevention with ASA and statin. Use of BB contraindicated by bradycardia. Acute expected blood loss anemia - Stable. No blood products transfused. Left renal mass - Incidental finding during imaging for MICS candidacy. Presumed CA, early stage. Followup with nephrology planned once recovered from surgery. Idiopathic pulmonary fibrosis - Stable. Extubated without incident. Modest suppl O2 requirement. Postoperative nausea - Resolved with multimodal analgesia and minimized narcs. Plan: Inc Losartan to 50 mg daily (1/2 home dose). Cont backup pacing (VVI 30). EP consult to review rhythm and need for event monitor. Inc activity as tolerated. Baseline postop echo. Dispo - Anticipate home tomorrow. 09/24/16 07:52 Subjective: Feels great. Improving strength and stamina. Satisfactory analgesia. No acute concerns. Objective: Vital Signs Temp Pulse Resp BP Pulse Ox 36.6 C 70 12 137/96 H 93 09/24/16 02:35 09/24/16 02:35 09/24/16 02:35 09/24/16 02:35 09/24/16 02:35 Laboratory Results 09/24/16 06:00 09/24/16 06:00 09/23/16 09/24/16 09/25/16 05:59 05:59 05:59 Intake Total 900 620 Output Total 920 1200 Balance -20 -580 Holding SB/SR. No backup pacing triggered. Upward SBP creep. Stable suppl O2 req. CXR-> hypoventilation, small bilat pl effusions. Balanced I/Os. At baseline wt. Labs ok. Physical Exam - Physical Exam General Appearance: alert, no apparent distress Respiratory: decreased breath sounds (bases) Cardiac/Chest: regular rate, rhythm, other (Sternum grossly stable. Sternotomy CDI. Vwires intact) Abdomen: non-tender, soft Skin: warm/dry Extremities: other (no visible edema) ICD10 Worksheet Patient Problems: Problems Problem Status Onset Acute blood loss anemia Acute Chronic diastolic congestive heart failure Acute S/P aortic valve replacement with bioprosthetic valve Acute ~09/21/16 Severe aortic valve regurgitation Acute Pulmonary fibrosis Chronic
[2016-09-24] MEDS: ASPIRIN 81 MG CHEWABLE TAB PO SCH (08:06)
[2016-09-24] MEDS: ROSUVASTATIN CALCIUM 10 MG TAB PO SCH (08:06)
[2016-09-24] MEDS: HYDROCHLOROTHIAZIDE 25 MG TAB PO SCH (08:07)
[2016-09-24] MEDS: LOSARTAN POTASSIUM 50 MG TAB PO SCH (08:08)
[2016-09-24] MEDS: PANTOPRAZOLE SODIUM 40 MG TAB PO SCH ×2 (08:08→20:08)
[2016-09-24] MEDS: MULTIVITAMINS 1 EACH TAB PO SCH (08:08)
[2016-09-24] MEDS: SENNOSIDES/DOCUSATE SODIUM TAB PO SCH ×2 (08:08→20:07)
--- NOTE | 2016-09-24 11:57 | GCON ---
[f rep st] CONSULTATION HISTORY OF PRESENT ILLNESS: The patient had initially presented in February [address] Sam Lopez for dyspnea on exertion, history of valvular heart disease. Was followed for sometime by solid waste facility operator in [place] before Dr. Sam Lopez. 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 In view of his symptoms, it was decided to perform aortic valve replacement. Patient underwent tissue AVR with partial sternotomy. On day two, he had significant bradycardia and hence the pacemaker wires got left in. Over time, his bradycardia has improved and his heart rate remains in the 50s. His bradycardia was sinus. 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 He mentions that his home heart rate is about 42-43 beats per minute on an average. REVIEW OF SYSTEMS: Other than the above is negative. PAST MEDICAL HISTORY: Aortic regurg, acute gastritis, dyslipidemia, hypertension, MR, pyelonephritis. PAST SURGICAL HISTORY: Neck surgery, knee surgery, laminectomy. HOME MEDICATIONS: Alprazolam, clopidogrel, Crestor, doxazosin, finasteride, hydrochlorothiazide, Losartan, multivitamin, and trazodone. ALLERGIES: Sulfa. SOCIAL HISTORY: Noncontributory. REVIEW OF SYSTEMS: 10-point review of systems other than above is negative. STUDIES: Echocardiogram reviewed. Tele reviewed. Physical Exam: 143/38 P 52 RR 16 Sats 92% PEERLA, Anicteric sclera neck supple, no thyromegaly Chest: Good AEBE, no rales, rhonchii, rub S1S2 regular No S3 Abdo: Soft non tender, no guarding, rigidity Skin; No rashes Neuro: Grossly intact Psych: AO X 3, good affect IMPRESSION: This is an 86-year-old with aortic insufficiency, status post surgery. Postop the patient had sinus bradycardia; however, it seems to be resolving. The sinus bradycardia was at nighttime when his heart rate down to 36. The patient claims to be asymptomatic with no history of presyncope, syncope, lightheadedness, dizziness. He claims to be a marathon runner which accounts for his sinus bradycardia. At this point in time, we will turn down the temporary pacemaker to 30 beats per minute and see if he requires pacing. If so, then we can implant a dual-chamber pacemaker. If he does not require any pacing, then we will hold off on further pacemaker until we reassess him in the outpatient setting. Thank you for letting me participate in patient's care. Feel free to call me for questions. /[id number]/MODL MTDD
--- NOTE | 2016-09-24 17:00 | ECHO ---
[id number] + + [address] : : [place] [address] : : [phone] + Adult Echocardiographic Report + --+ :Name: JOHN ANDRADE HStudy Date: 09/24/2016 01:51 PM : : Hospital Admission Number: [id number] : :: 1930 Gender: Male Height: 65 in : :Age: 86 yrs Race: WH Weight: 160 lb : :Reason For Study: Eval LV Fx : : BSA: 1.8 meter s2: :History: Post Op AVR #23 Magna bovine pericardial valve, Pacer : :wires : + --+ MMode/2D Measurements \T\ Calculations IVSd: 0.99 cm LVIDd: 4.3 cm FS: 25.7 % Ao root diam: 2.2 cm LVPWd: 1.2 cm LVIDs: 3.2 cm EDV(Teich): 81.7 ml ACS: 1.1 cm ESV(Teich): 40.1 ml EF(Teich): 50.9 % LVOT diam: 2.0 cm LVOT area: 3.1 cm2 Normal Measurement Values: + + :LVIDd (3.5-5.7cm) IVSd (0.6-1.1cm) LVPWd (0.6-1.1cm) Aortic Root (2.0-3.7cm)Left Atrium (1.5-4.0cm): :LV Vol(d) (76-115ml) LV Vol(s) (29-48ml) Ejec Fraction (50-65%)PV Ascencion (0.6- 1.2m/s) TV Ascencion (0.4-1.0m/s) : :MV E Ascencion (0.8-1.0m/s)MV A Ascencion (0.3-1.0m/s)LVOT Ascencion (0.7-1.2m/s) Asc Ao Ascencion ( 0.9-1.8m/s) : + + Doppler Measurements \T\ Calculations MV E max ascencion: Ao V2 max: LV V1 max: SV(LVOT): 91.3 cm/sec 274.2 cm/sec 112.0 cm/sec 80.3 ml MV A max ascencion: Ao max P.1 mmHgLV V1 max P.9 cm/sec Ao mean P.0 mmHg MV E/A: 0.74 21.3 mmHg LV V1 mean PG: Ao V2 mean: 2.4 mmHg 215.9 cm/sec LV V1 mean: Ao V2 VTI: 64.5 cm 69.3 cm/sec LV V1 VTI: 25.9 cm NEGRO(I,D): 1.2 cm2 NEGRO(V,D): 1.3 cm2 PA V2 max: TR max ascencion: 152.0 cm/sec 248.4 cm/sec PA max P.2 mmHg TR max P.7 mmHg RAP systole: 5.0 mmHg RVSP(TR): 29.7 mmHg Left Ventricle The left ventricle is normal in size. There is normal left ventricular wall thickness. There is Doppler evidence for diastolic dysfunction. Ejection Fraction = 50%. Septal motion is consistent with post-operative state. Right Ventricle The right ventricle is normal in size and function. Atria The left atrial size is normal. Right atrial size is normal. Mitral Valve There is mild mitral annular calcification. There is no mitral valve stenosis. There is trace mitral regurgitation. Tricuspid Valve Normal tricuspid valve. There is trace tricuspid regurgitation. Right ventricular systolic pressure is normal. Aortic Valve The average Ao mean PG is 21 mmHg with a peak Ao v2 max of 2.7 m/sec. There is a bioprosthetic aortic valve. The prosthetic aortic valve is well-seated. Pulmonic Valve The pulmonic valve is normal in structure and function. There is no pulmonic valvular regurgitation. Great Vessels The aortic root is normal size. Pericardium/Pleural There is no pericardial effusion. Conclusion A complete two-dimensional transthoracic echocardiogram was performed (2D, M-mode, Doppler and color flow Doppler). Low normal LV systolic function with paradoxic septal motion consistent with post-operative state. EF of 50%. Diastolic dysfunction. Mild mitral annular calcification. Trace mitral regurgitation. Trace tricuspid regurgitation. There is a bioprosthetic aortic valve which is well seated There is no pericardial effusion. Final Reading Physician: Mikie Villegas signed on 09/24/2016 04:58 PM Ordering Physician: Tressa Herrera Performed By: Juan Ramirez, NELYCS
[2016-09-24] MEDS: traZODone 100 MG TAB PO PRN (20:08)
[2016-09-24] MEDS: DOXAZOSIN MESYLATE 4 MG TAB PO SCH (20:08)
[2016-09-24] MEDS: FINASTERIDE 5 MG TAB PO SCH (20:08)
[2016-09-24] MEDS: traMADol 50 MG TAB PO PRN (20:08)
[2016-09-25] MEDS: traMADol 50 MG TAB PO PRN ×4 (01:02→19:58)
[2016-09-25] MEDS: traZODone 100 MG TAB PO PRN ×2 (01:03→21:28)
--- NOTE | 2016-09-25 08:24 | SOAPPROG ---
SOAP Progress Note Assessment/Plan: Assessment: POD#3 MICS AVR 23 mm Grover Magna bovine pericardial bioprosthesis Sx severe AI - s/p tissue AVR via partial sternotomy/upper inverse T with central CPB. Stable early postop course. No vasoactive support, tachyarrhythmias , or sustained backup pacing. Chest tube out. Antithrombotic prophylaxis with ASA pending stability of rhythm. Dilated cardiomyopathy w chronic dCHF - Preserved LV systolic fx. Off CPB without incident. No significant volume overload. Diuresing well on HCTZ. ARB uptitration as tolerated. Nonobstructive CAD - Stable. No apparent periop ischemia. Secondary prevention with ASA and statin. Use of BB contraindicated by bradycardia. Acute expected blood loss anemia - Stable. No blood products transfused. Left renal mass - Incidental finding during imaging for MICS candidacy. Presumed CA, early stage. Followup with nephrology planned once recovered from surgery. Idiopathic pulmonary fibrosis - Stable. Extubated without incident. Modest suppl O2 requirement. Postoperative nausea - Resolved with multimodal analgesia and minimized narcs. Plan: Cont Losartan 50 mg daily. Consider inc to 75 mg tomorrow. Pull TCPW. Cont inc activity and pulm toilet. Dispo - Home tomorrow if ok w cardiology. 09/25/16 08:23 Subjective: Feels well. Improving mobility. +BM. Excited to have wires out and a shower. No acute concerns. Comfortable going home tomorrow. Objective: Vital Signs Temp Pulse Resp BP Pulse Ox 36.6 C 63 15 136/47 H 94 09/25/16 04:00 09/25/16 04:00 09/25/16 04:00 09/25/16 04:00 09/25/16 04:00 Laboratory Results 09/24/16 06:00 09/24/16 06:00 09/24/16 09/25/16 09/26/16 05:59 05:59 05:59 Intake Total 620 500 Output Total 1200 700 Balance -580 -200 Holding SB/SR without backup pacing. Echo yest-> LVEF 50%, nl chamber size, nl bioprosthetic fx, no pericard eff. Balanced I/Os. Below preop wt. - Pending Discharge Pending Discharge Within 24 Hours: Yes Pending Discharge Date: 09/26/16 Pending Discharge Time: 11:00 Physical Exam - Physical Exam General Appearance: alert, no apparent distress Respiratory: lungs clear Cardiac/Chest: regular rate, rhythm, other (Sternum grossly stable. Sternotomy CDI. Vwires intact.) Abdomen: non-tender, soft Skin: warm/dry Extremities: other (no visible edema) ICD10 Worksheet Patient Problems: Problems Problem Status Onset Acute blood loss anemia Acute Chronic diastolic congestive heart failure Acute S/P aortic valve replacement with bioprosthetic valve Acute ~09/21/16 Severe aortic valve regurgitation Acute Pulmonary fibrosis Chronic
[2016-09-25] MEDS: ROSUVASTATIN CALCIUM 10 MG TAB PO SCH (08:55)
[2016-09-25] MEDS: MULTIVITAMINS 1 EACH TAB PO SCH (08:55)
[2016-09-25] MEDS: SENNOSIDES/DOCUSATE SODIUM TAB PO SCH (08:55)
[2016-09-25] MEDS: PANTOPRAZOLE SODIUM 40 MG TAB PO SCH (08:55)
[2016-09-25] MEDS: ASPIRIN 81 MG CHEWABLE TAB PO SCH (08:55)
[2016-09-25] MEDS: LOSARTAN POTASSIUM 50 MG TAB PO SCH (08:56)
[2016-09-25] MEDS: HYDROCHLOROTHIAZIDE 25 MG TAB PO SCH (08:56)
--- NOTE | 2016-09-25 10:51 | SOAPPROG ---
SOAP Progress Note Assessment/Plan: Assessment/ Plan: This is a 86 yr old with severe AI s/p AVR who had bradycardia post op but is improving. Overnight, HR was 49 at the minimum. He did not pace from the temporary pacemaker wire. Currently does not seem to be a need for permanent pacemaker. 09/25/16 10:49 Subjective: Pt is doing well without complains of lightheadedness, dizziness, presyncope or syncope Objective: Vital Signs Temp Pulse Resp BP Pulse Ox 36.6 C 71 19 122/48 H 92 09/25/16 08:00 09/25/16 08:00 09/25/16 08:00 09/25/16 08:00 09/25/16 08:00 Laboratory Results 09/24/16 06:00 09/24/16 06:00 09/24/16 09/25/16 09/26/16 05:59 05:59 05:59 Intake Total 620 500 120 Output Total 1200 700 Balance -580 -200 120 Physical Exam - Physical Exam General Appearance: alert, no apparent distress EENT: PERRL/EOMI, normal ENT inspection, TMs normal Neck: non-tender, full range of motion, supple Respiratory: lungs clear, normal breath sounds Cardiac/Chest: normal peripheral pulses, regular rate, rhythm Abdomen: normal bowel sounds, non-tender, soft ICD10 Worksheet Patient Problems: Problems Problem Status Onset Acute blood loss anemia Acute Chronic diastolic congestive heart failure Acute S/P aortic valve replacement with bioprosthetic valve Acute ~09/21/16 Severe aortic valve regurgitation Acute Pulmonary fibrosis Chronic
[2016-09-25] MEDS: ALPRAZolam 1 MG TAB PO PRN (15:36)
[2016-09-25] MEDS: FINASTERIDE 5 MG TAB PO SCH (20:27)
[2016-09-25] MEDS: DOXAZOSIN MESYLATE 4 MG TAB PO SCH (20:28)
[2016-09-25] MEDS ORDERED: SENNOSIDES/DOCUSATE SODIUM TAB PO PRN (21:00)
[2016-09-26] MEDS: ALPRAZolam 1 MG TAB PO PRN (03:42)
[2016-09-26 04:15] LABS: HEMOGLOBIN 9.9 g/dL (13.7-17.5)
[2016-09-26 04:50] VITALS: O2SAT 92
--- NOTE | 2016-09-26 08:53 | SOAPPROG ---
SOAP Progress Note Assessment/Plan: Assessment: POD#5 MICS AVR 23 mm Grover Magna bovine pericardial bioprosthesis Sx severe AI - s/p tissue AVR via partial sternotomy/upper inverse T with central CPB. Stable early postop course. No vasoactive support, tachyarrhythmias , or sustained backup pacing. Longstanding hx SB with occasional dips into the 40s. EP consulted and PPM not felt to be indicated. Chest tube out. Antithrombotic prophylaxis with ASA pending stability of rhythm. Dilated cardiomyopathy w chronic dCHF - Preserved LV systolic fx. Off CPB without incident. No significant volume overload. Diuresing well on HCTZ. ARB uptitration as tolerated. Nonobstructive CAD - Stable. No apparent periop ischemia. Secondary prevention with ASA and statin. Use of BB contraindicated by bradycardia. Acute expected blood loss anemia - Stable. No blood products transfused. Left renal mass - Incidental finding during imaging for MICS candidacy. Presumed CA, early stage. Followup with nephrology planned once recovered from surgery. Idiopathic pulmonary fibrosis - Stable. Extubated without incident. Modest suppl O2 requirement. Postoperative nausea - Resolved with multimodal analgesia and minimized narcs. Plan: Resume home dose of Losartan. Zio patch monitor. Dispo - Ok for discharge home. Instructions re diet, meds, activity, wound care and f/u to be reviewed in presence of . 09/26/16 08:51 Subjective: Feels well. No acute concerns. Ready for home. Objective: Vital Signs Temp Pulse Resp BP Pulse Ox 36.8 C 61 20 145/59 H 92 09/26/16 08:30 09/26/16 08:30 09/26/16 08:30 09/26/16 08:30 09/26/16 08:30 Laboratory Results 09/26/16 04:00 09/24/16 06:00 09/25/16 09/26/16 09/27/16 05:59 05:59 05:59 Intake Total 500 590 Output Total 700 900 Balance -200 -310 Holding SB/SR BP, sats, labs stable. Balanced I/Os. Sl below baseline wt. Physical Exam - Physical Exam General Appearance: alert, no apparent distress Respiratory: lungs clear Cardiac/Chest: regular rate, rhythm, other (Sternum grossly stable. Sternotomy CDI.) Abdomen: non-tender, soft Skin: warm/dry Extremities: other (no visible edema) ICD10 Worksheet Patient Problems: Problems Problem Status Onset Acute blood loss anemia Acute Chronic diastolic congestive heart failure Acute S/P aortic valve replacement with bioprosthetic valve Acute ~09/21/16 Severe aortic valve regurgitation Acute Pulmonary fibrosis Chronic
[2016-09-26] MEDS: traMADol 50 MG TAB PO PRN (08:59)
[2016-09-26] MEDS: MULTIVITAMINS 1 EACH TAB PO SCH (09:00)
[2016-09-26] MEDS ORDERED: LOSARTAN POTASSIUM 50 MG TAB PO SCH (09:00)
[2016-09-26] MEDS: HYDROCHLOROTHIAZIDE 25 MG TAB PO SCH (09:00)
[2016-09-26] MEDS ORDERED: ALPRAZolam 0.5 MG TAB PO PRN (09:00)
[2016-09-26] MEDS: ASPIRIN 81 MG CHEWABLE TAB PO SCH (09:00)
[2016-09-26 10:53] VITALS: BP 116/52; PULSE 62; RESP 16; TEMP 98.1
--- NOTE | 2016-09-26 11:54 | PDIAF ---
- Diagnosis Diagnosis: severe AI, DCM, chronic dCHF, chronic otilai, IPF, chronic O2 s/p mini AVR Code Status: Full Code - Medication Management Discharge Medications: Medications to Continue on Transfer Doxazosin Mesylate [Cardura 4 MG (*)] 4 mg PO HS 01/14/13 [Last Taken 09/19/16] ALPRAZolam [Xanax 0.5 MG (*)] 0.5 mg PO DAILY PRN 05/17/15 [Last Taken 09/20/16] Finasteride [Proscar 5 MG (*)] 5 mg PO HS 05/17/15 [Last Taken 09/19/16] Herbals/Supplements -Info Only 1 ea PO DAILY 05/17/15 [Last Taken 09/14/16] traZODone [traZODONE 100MG (*)] 100 - 200 mg PO HS PRN 05/17/15 [Last Taken 07/08] Hydrochlorothiazide [HCTZ (*)] 25 mg PO DAILY 08/31/16 [Last Taken 09/20/16] Losartan Potassium [Cozaar 50 mg (*)] 100 mg PO DAILY 08/31/16 [Last Taken 09/20] Multivitamins [Multivitamin (*)] 1 each PO DAILY 08/31/16 [Last Taken 09/14/16] Rosuvastatin Calcium [Crestor 5mg] 5 mg PO Q2D@0900 08/31/16 [Last Taken ] Acetaminophen [Tylenol 325mg (*)] 325 - 650 mg PO Q4HRS PRN #0 tab 09/26/16 [ Last Taken Unknown] Aspirin [Aspirin 81mg (*)] 81 mg PO DAILY #0 tab.chew 09/26/16 [Last Taken Unknown] Hydrocodone/APAP 5/325 [[place] 5/325 (*)] 1 tab PO Q6-8PRN PRN #40 tab 09/26/16 [ Last Taken Unknown] Discharge Medications: Refer to the Discharge Home Medication list for PRN reason. PICC Care - Routine: N/A - Orders Services needed: Registered Nurse (cardiorespiratory monitoring. Call [facility] for resting HR < 50 or > 120, SBP < 90 or > 150, suppl O2 needs > 5 lpm, overnight wt gain > 2lbs, progressive leg swelling, or any wound concerns), Physical Therapy (sternal precautions x 4 weeks) Oxygen: prn SpO2 < 90% +/- activity Diet Recommendation: cardiac -low fat low salt Diet Texture: Regular Texture Diet Weigh Patient: daily Almanza: Not applicable Wound Care Instructions: Daily soap and water. Avoid ointments until scabs off. Avoid under water immersion until scabs off. Activity/Weight Bearing Restrictions: sternal precautions x 4 weeks. Avoid push /pull activities. No lifting > 10 Lbs with an outstretched arm. - Labs/Radiology Imaging Orders: CXR prior to surgical appointment - Follow Up Care Current Providers and Referrals: Sukhwinder Zapata MD [Primary Care Provider] - Sam Esteves DO [Doctor of Osteopathy] - 10/04/16 10:30 am Wicho Cormier MD [Medical Doctor] - (follow up in 4-6 weeks, appt to be established during surgical visit) Zulma Bowser MD [Medical Doctor] - follow up in 2 weeks (left renal mass)
--- NOTE | 2016-09-26 16:36 | PDDCSUM ---
Discharge Summary Discharge Summary: DATE OF ADMISSION: 09/21/16 DATE OF DISCHARGE: 09/26/16 DISPOSITION: Home with home healthcare, RN and PT PRINCIPAL ADMISSION DIAGNOSIS: Symptomatic severe aortic valve insufficiency PRINCIPAL DISCHARGE DIAGNOSES: 1. Status post minimally invasive aortic valve replacement with a bioprosthesis 2. Acute expected blood loss anemia HISTORY OF PRESENT ILLNESS: 86 yo male with an active lifestyle and progressive exertional dyspnea with chest pains attributable to severe AI, LVE, and LVDD admitted for a minimally invasive AVR. PERTINENT PAST MEDICAL HISTORY: See Problem List below. MEDICATIONS ON ADMISSION: Doxazosin 4 mg hs, Finasteride 5 mg hs, MVI daily, HCTZ 25 mg daily, Losartan 100 mg daily, Crestor 5 mg q 2days, Herbal supplement daily, Oxygen 2-3 Lpm hs, Trazodone 100 mg hs prn, Xanax 0.5 mg daily prn. ALLERGIES/SENSITIVITIES: Sulfa causing a rash CONSULTANTS: EP cardiology (Lali) PROCEDURES/IMAGIN/4 (Danielito): Partial upper sternotomy. Aortic valve replacement with a 23 mm Grover Magna bovine pericardial bioprosthesis. 09/24 (Lali): Transthoracic echocardiogram. ABBREVIATED HOSPITAL COURSE BY ACTIVE PROBLEM LIST: 1. Sx severe AI - s/p tissue AVR via upper inverse T sternotomy with central CPB. Stable early postop course. Antithrombotic prophylaxis with ASA alone. 2. Rhythm - Longstanding hx SB with occasional asx dips into the 40s. Intermittent backup Vpacing early postop. No apparent AVB or chronotropic incompetence. EP consulted and PPM not felt to be indicated. Rhythm to be monitored as an outpt by Zio patch. 3. Dilated cardiomyopathy w chronic dCHF - Preserved LV systolic fx. Off CPB without incident. No significant volume overload. Steady diuresis on chronic home meds. 4. Nonobstructive CAD - Stable. No apparent periop ischemia. Secondary prevention with ASA and statin. Use of BB contraindicated by bradycardia. 5. Acute expected blood loss anemia - Stable. No blood products transfused. 6. Left renal mass - Incidental finding during imaging for MICS candidacy. Presumed CA, early stage. Followup with nephrology planned once recovered from surgery. 7. Idiopathic pulmonary fibrosis - Stable. Extubated without incident. Modest suppl O2 requirement. 8. BPH - Controlled. No voiding difficulties post hernandez removal on chronic home meds. 9. Postoperative nausea - Resolved with multimodal analgesia and minimized narcs. DISCHARGE CLINICAL INFORMATION: Sternum grossly stable. Sternotomy CDI, sutured, +Dermabond. HR 50s-60s. SBP 120s. SpO2 92% on 2 Lpm O2. Wt 2 kg below admission at 72.6 kilos. Hgb 9.9, HCT 29, Na 138, K 4.5, Cr 0.8 DISCHARGE MEDICATIONS: As on admission with the following adjustments: Oxygen during the daytime as directed by SpO2. NEW prescriptions: 1. [place] 5/325 one half to one tablet q 6-8 hrs prn moderate incisional discomfort. OTC: 1. ASA 81 mg daily. 2. Tylenol 325-650 mg q 4h prn mild incisional discomfort, not to exceed 3,000 mg daily. FOLLOW UP APPOINTMENTS: 1. CV surgery: with Dr Esteves at [facility] on 10/04 at 10:30am. 2. Cardiology: at [facility] [place] [place] for Zio patch fitting today at 2:30pm; with Dr Cormier at [facility] within 4-6 weeks. Appointment to be established during surgical visit. 3. Urology: with Dr Bowser at [facility] within 2-3 weeks. Followup left renal mass. FOLLOW UP TESTING: CXR prior to surgical appointment.
== END 2016-09-26 14:14 | disposition home health service (06) | DRG 220 ==
LOC: F3N 05:38 → F2N 10:44 → F2W 09-23 10:31
PROVIDERS: ADMIT Thoracic Surgery (Cardiothoracic Vascular Surgery); ATTEND Thoracic Surgery (Cardiothoracic Vascular Surgery)
DX: I35.1 Nonrheumatic aortic (valve) insufficiency (principal); D62 Acute posthemorrhagic anemia; I11.0 Hypertensive heart disease with heart failure; I50.32 Chronic diastolic (congestive) heart failure; I42.0 Dilated cardiomyopathy; I25.10 Atherosclerotic heart disease of native coronary artery without angina pectoris; N28.89 Other specified disorders of kidney and ureter; J84.112 Idiopathic pulmonary fibrosis; N40.0 Benign prostatic hyperplasia without lower urinary tract symptoms; R00.1 Bradycardia, unspecified
CPT/HCPCS: 82947-QW; 92526-GN; 92610-GN; 97116-GP; 97161-GP; 97166-GO; 97530-GP; 97535-GO; G8978-GP-CK; G8979-GP-CI; G8980-GP-CI; G8987-GO-CK; G8988-GO-CI; G8989-GO-CI; G8996-GN-CI; G8997-GN-CH; G8998-GN-CH; J0153; J0282; J0690; J1265; J1644; J1815; J1885; J2001; J2060; J2150; J2250; J2260; J2370; J2405; J2704; J2720; J2765; J2930; J3010; J7060; P9041

== ENCOUNTER → 2016-10-03 | Outpatient (CLI) | payer MEDICAID, MEDICARE | LOC: FIMAGING 10:44 | PROVIDERS: ATTEND Physician Assistant Surgical | DX: J98.11 Atelectasis (principal); J90 Pleural effusion, not elsewhere classified; Z98.890 Other specified postprocedural states ==

== ENCOUNTER → 2016-10-26 | Outpatient (CLI) | payer OTHER, MEDICARE | LOC: FIMAGING 10:40 | PROVIDERS: ATTEND Thoracic Surgery (Cardiothoracic Vascular Surgery) | DX: Z95.2 Presence of prosthetic heart valve (principal); Z98.890 Other specified postprocedural states ==

== ENCOUNTER → 2016-11-15 | Outpatient (CLI) | payer OTHER, MEDICARE | LOC: FLAB 11:21 | PROVIDERS: ATTEND Thoracic Surgery (Cardiothoracic Vascular Surgery) | DX: Z48.812 Encounter for surgical aftercare following surgery on the circulatory system (principal); Z95.1 Presence of aortocoronary bypass graft ==

== ENCOUNTER → 2016-11-23 | Outpatient (CLI) | payer OTHER, MEDICARE | LOC: BHFA 15:30 | PROVIDERS: ATTEND Internal Medicine Cardiovascular Disease | DX: I35.9 Nonrheumatic aortic valve disorder, unspecified (principal) ==

== ENCOUNTER → 2016-11-29 | Outpatient (CLI) | payer OTHER, MEDICARE ==
[~2016-11-29] MED LIST changes: -IOPAMIDOL (ISOVUE-300) 100 ML BTL IV ONE; +IOPAMIDOL (ISOVUE-300) 100 ML BTL ONE
== END ==
LOC: FIMAGING 10:44
PROVIDERS: ATTEND Physician Assistant Medical
DX: Z09 Encounter for follow-up examination after completed treatment for conditions other than malignant neoplasm (principal); R93.422 Abnormal radiologic findings on diagnostic imaging of left kidney
CPT/HCPCS: 74178; Q9967

== ENCOUNTER → 2016-12-07 | Outpatient (CLI) | payer OTHER, MEDICARE | LOC: BHFA 15:00 | PROVIDERS: ATTEND Internal Medicine Cardiovascular Disease | DX: R00.1 Bradycardia, unspecified (principal); R53.83 Other fatigue; E78.00 Pure hypercholesterolemia, unspecified; I10 Essential (primary) hypertension; Z95.2 Presence of prosthetic heart valve ==

== ENCOUNTER 2017-01-05 06:37 | Inpatient (IN) | payer OTHER, MEDICARE ==
[~2017-01-05 06:37] MED LIST changes: -IOPAMIDOL (ISOVUE-300) 100 ML BTL ONE; +cefOXitin SODIUM 2 GM in D5W 100 ML IV ONE
[2017-01-05] MEDS ORDERED: PROPOFOL 200 MG/20 ML VIAL ONE (06:41)
[2017-01-05] MEDS ORDERED: LIDOCAINE 2% 100 MG/5 ML SYR ONE (06:41)
[2017-01-05] MEDS ORDERED: ROCURONIUM 50 MG/5 ML VIAL ONE ×2 (06:41→09:02)
[2017-01-05] MEDS ORDERED: fentaNYL 100 MCG/2 ML INJ ONE ×2 (06:41→13:15)
[2017-01-05] MEDS ORDERED: cefOXitin SODIUM 2 GM in D5W 100 ML IV SCH (06:45)
[2017-01-05] MEDS ORDERED: LIDOCAINE 1% 2 ML INJ ID PRN (06:58)
[2017-01-05] MEDS ORDERED: LR 1,000 ML IV ONE (06:58)
[2017-01-05] MEDS ORDERED: BUPIVACAINE/EPI 0.5% 30 ML SDV ONE (08:03)
[2017-01-05] MEDS ORDERED: MANNITOL 20% 100 GM/500 ML BAG IV ONE (08:04)
[2017-01-05] MEDS ORDERED: INDOCYANINE GREEN 25 MG VIAL ONE (08:04)
--- NOTE | 2017-01-05 08:11 | PDANEPAE ---
ANE History of Present Illness 86 year old male w/ PMHx of SE (recent AVR; September 2016), idiopathic pulmonary fibrosis (wears O2 at night), MIR (on CPAP), HTN, HLD & left renal mass presents for robotic partial nephrectomy. ANE Past Medical History - Cardiovascular History Hx Hypertension: Yes Hx Arrhythmias: No Hx Chest Pain: No Hx Coronary Artery / Peripheral Vascular Disease: No Hx CHF / Valvular Disease: Yes Hx Palpitations: No Cardiovascular History Comment: AVR with Danielito 09/21/16. hypercholesterolemia. hyperlipidemia. htn - Pulmonary History Hx COPD: No Hx Asthma/Reactive Airway Disease: No Hx Recent Upper Respiratory Infection: No Hx Oxygen in Use at Home: Yes O2 in Use at Home (L/minute): 5L around the clock Hx Sleep Apnea: Yes Sleep Apnea Screening Result - Last Documented: Positive Pulmonary History Comment: Dx w/Idiopathic Pulmonary Fibrosis at [facility]. 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 - Cancer History Hx Cancer: No Cancer History Comment: poss renal cell ca currently - Congenital Disorder History Hx Congenital Disorders: No - GI History GERD: mild Hx Gastrointestinal Disorders: Yes Gastrointestinal History Comment: occ Nexium for heartburn - Other Health History Other Health History: dentures. wears glasses - Chronic Pain History Chronic Pain: Yes (right hip pain) - Surgical History Prior Surgeries: 09/21/16 AVR with Danielito. L dawson-lamincetomy L4/L5 -Dr Simpson. back sx w/Dr MATTHEWS. knee sx-meniscus ANE Review of Systems Review of systems is: negative - Exercise capacity Exercise capacity: <4 METS METS (RN): 2 METS ANE Patient History - Allergies Allergies/Adverse Reactions: shellfish derived Allergy (Verified 12/13/16 11:14) Sulfa (Sulfonamide Antibiotics) Allergy (Verified 12/13/16 11:14) Rash - Home Medications Home medications: home medication list seen and reviewed Home Medications: RX: Doxazosin Mesylate [Cardura 4 MG (*)] 4 mg PO HS 01/14/13 [Last Taken 21:00] RX: ALPRAZolam [Xanax 0.5 MG (*)] 0.5 mg PO TID PRN 05/17/15 [Last Taken 05:30] RX: Finasteride [Proscar 5 MG (*)] 5 mg PO HS 05/17/15 [Last Taken 01/04/17 21: 00] RX: Herbals/Supplements -Info Only 1 ea PO DAILY 05/17/15 [Last Taken 1 Week Ago ] RX: traZODone [traZODONE 100MG (*)] 100 mg PO HS 05/17/15 [Last Taken 01/04/17 21:00] RX: Hydrochlorothiazide [HCTZ (*)] 25 mg PO DAILY 08/31/16 [Last Taken 01/04/17 08:00] RX: Multivitamins [Multivitamin (*)] 2 each PO DAILY 08/31/16 [Last Taken 1 Week Ago] RX: Rosuvastatin Calcium [Crestor 5mg] 5 mg PO DAILY 08/31/16 [Last Taken 05:30] Losartan Potassium [Cozaar] 100 mg PO DAILY 12/13/16 [Last Taken 01/05/17 05:30] traZODone [traZODONE 100MG (*)] 100 mg PO DAILY@02 12/13/16 [Last Taken Unknown] - NPO status NPO Status: no food or drink >8 hours NPO Since - Liquids (Date): 01/04/17 NPO Since - Liquids (Time): 19:00 NPO Since - Solids (Date): 01/04/17 NPO Since - Solids (Time): 08:00 - Anes Hx Anes Hx: no prior problems - Smoking Hx Smoking Status: Never smoked - Alcohol Use Alcohol Use: Rarely - Family Anes Hx Family Anes Hx: neg - N/A Family Hx Anesthesia Complications: none ANE Labs/Vital Signs - Vital Signs Vital Signs: reviewed preoperatively; see RN documention for details Blood Pressure: 133/62 Heart Rate: 53 Respiratory Rate: 16 O2 Sat (%): 94 Height: 165.1 cm Weight: 72.575 kg ANE Physical Exam - Airway Neck exam: FROM Mallampati Score: Class 2 Mouth exam: dentures, duke - Pulmonary Pulmonary: no respiratory distress - Cardiovascular Cardiovascular: regular rate and rhythym - ASA Status ASA Status: III ANE Anesthesia Plan Anesthesia Plan: general endotracheal anesthesia Lines/Monitors: arterial line (Possible arterial line - risks and benefits discussed with patient.)
--- NOTE | 2017-01-05 08:20 | PDHPUP ---
History & Physical Update H&P update statement: This history and physical update is based on an assessment of the patient which was completed after admission or registration (within 24 hours), but prior to the surgery/procedure. H&P update: no change in patient's condition since H&P completed
[2017-01-05] MEDS ORDERED: epHEDrine SULFATE 10 MG/ML SYR ONE ×3 (08:55→10:35)
[2017-01-05] MEDS ORDERED: PHENYLEPHRINE HCL 100 MCG/ML SYR ONE ×2 (08:56→10:46)
[2017-01-05] MEDS ORDERED: ONDANSETRON 4 MG/2 ML VIAL ONE (09:38)
[2017-01-05] MEDS ORDERED: DEXAMETHASONE 4 MG/ML VIAL ONE (09:38)
[2017-01-05] MEDS ORDERED: LR 500 ML IV PRN (09:56)
[2017-01-05] MEDS ORDERED: NALOXONE HCL 0.4 MG/ML INJ IVP PRN ×2 (09:56→12:40)
[2017-01-05] MEDS ORDERED: HYDROmorphONE/DILAUDID 1 MG/ML SYR IVP PRN (09:56)
[2017-01-05] MEDS ORDERED: HYDROCODONE/APAP 5/325 TAB PO PRN (09:56)
[2017-01-05] MEDS ORDERED: ONDANSETRON 4 MG/2 ML VIAL IVP PRN ×2 (09:56→12:39)
[2017-01-05] MEDS ORDERED: VASOPRESSIN 20 UNIT/ML VIAL ONE (11:01)
[2017-01-05] MEDS ORDERED: THROMBIN(HUM PLAS)/FIBRINOG/CA 5 ML VIAL TP ONE (11:26)
--- NOTE | 2017-01-05 12:37 | POSTOPPROG ---
Post Op Note Date of Operation: 01/05/17 Surgeon: Zulma Bowser (# [id number]) Anesthesia: GET(General Endotracheal) Pre-op Diagnosis: Left renal mass Post-op Diagnosis: Left renal mass Procedure: Robotic left partial nephrectomy w/ intraoperative ultrasound guidance Findings: See op note Inf/Abcess present in the surg proc area at time of surgery?: No EBL: 100-500 (500 cc) Complications: None Drains: Chris Persaud (10 Flat) Specimen(s): Left renal mass
[2017-01-05] MEDS ORDERED: PROMETHAZINE HCL 25 MG/ML INJ IVP PRN (12:39)
[2017-01-05] MEDS ORDERED: LIDOCAINE 2% JELLY 5 ML TUBE TP PRN (12:39)
[2017-01-05] MEDS: fentaNYL 100 MCG/2 ML INJ IVP PRN ×2 (13:18→13:23)
[2017-01-05] MEDS: D5W 1/2 NS 1,000 ML IV SCH ×2 (14:11→23:55)
[2017-01-05] MEDS: HYDROmorphONE/DILAUDID 6 MG/30 ML PCA IV PRN (14:12)
[2017-01-05 15:14] LABS: HEMATOCRIT 37.7 % (40.0-51.0); MEAN CELL HEMOGLOBIN 33.6 pg (27.9-34.1); MEAN CELL HEMOGLOBIN CONCENTR. 34.5 g/dL (32.4-36.7); MEAN CELL VOLUME 97.4 fL (81.5-99.8); RED BLOOD CELL COUNT 3.87 10^6/uL (4.40-6.38); RED CELL DISTRIBUTION WIDTH 12.4 % (11.5-15.2)
[2017-01-05 15:24] LABS: ANION GAP 11 mEq/L (8-16); CALCIUM 7.9 mg/dL (8.5-10.4); CARBON DIOXIDE 25 mEq/l (22-31); CHLORIDE 102 mEq/L (97-110); CREATININE 1.1 mg/dL (0.7-1.3); GLOMERULAR FILTRATION RATE > 60; GLUCOSE 227 mg/dL (70-100); POTASSIUM 4.1 mEq/L (3.5-5.2); SODIUM 138 mEq/L (134-144)
[2017-01-05] MEDS: cefOXitin SODIUM 2 GM in D5W 100 ML IV SCH ×2 (15:24→21:12)
--- NOTE | 2017-01-05 15:32 | POSTANESTH ---
Post Anesthetic Evaluation Cardiovascular Status: Normal, Stable Respiratory Status: Normal, Stable Level of Consciousness/Mental Status: Can Participate in Eval Pain Control: Adequate, Prn Tx Ordered Nausea/Vomiting Control: Adequate, Prn Tx Ordered Complications Possibly Related to Anesthesia: Other, See Comments (Patient alert and following instructions in PACU. No reports of eye pain to anesthesiologist while in PACU. Anesthesiologist did receive a call from patient's nurse on the floor as patient was reporting pain in right eye. Anesthesiologist to patient's room, vision grossly intact. Suspect corneal abrasion sometime in PACU. Regardless, patient and family reassured. Eye drops of local anesthestic tetracaine and ketolorac ordered for right eye.)
[2017-01-05] MEDS: TETRACAINE 0.5% 15 ML OPHT.BTL RTEYE PRN ×3 (16:28→21:12)
[2017-01-05] MEDS: KETOROLAC 0.5% 5 ML OPHT.BTL RTEYE SCH ×3 (16:40→20:42)
--- NOTE | 2017-01-05 19:14 | GOP ---
[f rep st] OPERATIVE REPORT DATE OF OPERATION: 01/05/2017 SURGEON: Zulma Bowser MD ED CASE MANAGER: Meghana Huddleston CFA ANESTHESIA: General endotracheal. PREOPERATIVE DIAGNOSIS: Left renal mass. POSTOPERATIVE DIAGNOSIS: Left renal mass. PROCEDURE PERFORMED: Robotically-assisted left partial nephrectomy with intraoperative ultrasound guidance. FINDINGS: Abnormal left renal mass, excised as noted in the body of the dictation. SPECIMENS: Left renal mass. ESTIMATED BLOOD LOSS: Approximately 500 cc. INDICATIONS: This gentleman was previously noted to have an incidental abnormal left upper pole renal mass that was worrisome for malignancy. This was detected before the patient underwent aortic valve replacement. The patient has now recovered from that surgery and presents for operative management of the left renal mass at this time. The indications for the procedures, as well as potential risks and complications, were discussed with the patient preoperatively. He appeared to understand, his questions were answered, and he wished to proceed. Written informed surgical consent was thereafter obtained. DESCRIPTION OF PROCEDURE: The patient was brought to the operating room and administered general endotracheal anesthesia, along with an orogastric tube, both of which were removed at the conclusion of the case. Almanza catheter was placed sterilely on the field to gravity drainage. The patient was then placed over the break of the table, and the table was flexed approximately 20 degrees. A triangular pad was placed along the left side of the patient's back, thereby propping him up about 45 degrees. The left leg was flexed at the knee while the right leg was kept straight over it, with pillows between them. All appropriate pressure points were padded thoroughly. An axillary roll was placed by Anesthesia. The patient was then thoroughly secured to the operating room table with several wide strips of tape from head to toe. The patient's left arm was kept in a neutral position along his side, while the right arm was kept abducted less than 90 degrees on an arm board. Once the patient was secured to the table, the table was airplaned back and forth in maximum positions to ensure the patient was indeed stable on the table, and this was confirmed. The abdomen was then sterilely prepped and draped in standard fashion utilizing Ioban. I obtained intra-abdominal access with a Veress needle a few centimeters above the umbilicus and along the lateral edge of the left rectus muscle. The abdomen was insufflated to 15 mmHg. A 12 mm laparoscopic port was placed at this location, and proper intraabdominal access was confirmed. I then marked out my remaining port sites, which were as follows: An 8 mm robotic port placed 1 handbreadth above the 12 mm laparoscopic camera port, and another 8 mm robotic port placed 1 handbreadth below the 12 mm camera port. These ports were all placed in the same longitudinal line along the lateral edge of the rectus muscle. A 12 mm commercial real estate assistant port was placed in the midline below the umbilicus, and an additional 8 mm robotic port was placed 1 handbreadth away from the lowest robotic port and just medial and inferior to the anterior superior iliac spine. All these ports were placed under direct vision without complication. The patient was then airplaned into a complete left flank up position. The robot was then docked perpendicular to the table with the center post of the robot being in line with the 12 mm camera laparoscopic port. The appropriate robotic arms were connected to the appropriate ports, with the exception of the 4th arm, which was left undocked at this point. I initially used the 0 degree 12 mm camera at the beginning of the case. I then left the patient's bedside and entered the surgeon's robotic console. I began the robotic portion of procedure by mobilizing the left colon off the lateral abdominal wall with monopolar scissors dissection. The plane between the colon and the underlying Gerota fascia was then identified. The colon was mobilized medially from the level of the spermatic cord to the splenic flexure, again with careful judicious use of monopolar scissors. The colon was completely reflected in this fashion. The tail of the pancreas was identified and left unharmed. The spleen was also identified and left unharmed. I then continued my dissection inferior to the kidney and was able to ultimately identify the left gonadal vein and the ureter. These were pulled up anteriorly so that the psoas fascia could be seen. I then continued my dissection medially while lifting these structures straight up in order to eventually reach the renal hilum. At this point, the 4th robotic arm was secured in position, and the ProGrasp was used to help with retraction throughout the remainder of the case. I continued my dissection medially and inferiorly with monopolar scissors dissection, and the use of bipolar cautery as necessary, until I was able to identify the insertion of the gonadal vein into the renal vein. I carefully dissected the renal vein from the surrounding structures. I was ultimately able to identify the adrenal vein inserting into the renal vein superiorly. The renal vein appeared to bifurcate early. I therefore isolated a segment of the renal vein between the bifurcation and the takeoff of the adrenal and gonadal veins for potential placement of a bulldog clamp. I then carefully skeletonized the remainder of the hilum and was able to identify 1 dominant renal artery just below the lower margin of the renal vein. I isolated this renal artery back towards its takeoff from the aorta. The hilum was carefully inspected, and no other obvious significant vascular structures, particularly no arteries, were identified. I then began to remove the perirenal fat off the anterior, superior, and lateral surfaces of the kidney using monopolar scissors dissection. Location of the tumor, based on preoperative CT imaging, was along the left upper pole in a [id number] lateral location. I was ultimately able to identify the mass in question off the left lateral superior aspect of the kidney. There was an adjoining simple cyst, which was purposely drained at this point. There was some bleeding noted from the parenchyma just below the renal mass, which was addressed with a Surgicel. I then carefully dissected the renal cortical surface and capsule from the surrounding tissue around the mass in order to create enough mobilization so that I could rotate the lateral aspect of the kidney in an anterior fashion for completion of the partial nephrectomy. I also decided to switch to a 30 degree down 12 mm robotic camera lens in order to better visualize the tumor. At this point, the ultrasound was brought onto the field. The commercial real estate assistant directed the ultrasound probe, and I was able to isolate the location and depth of the tumor. Clinical Ob images were taken and placed in the patient's chart. The tumor measured approximately 2.5 x 3.5 cm, with a depth of approximately 3-4 cm. I then carefully scored the capsule of the kidney surrounding the tumor along the medial, inferior, and lateral aspects, while taking care to provide a nice, healthy, grossly negative margin. Bulldog clamps were then used to ligate the renal hilum, with 2 clamps initially placed on the renal artery, then 1 clamp placed on the vein. Cross clamp time was noted. I then used monopolar scissors dissection to systematically excise the tumor. Once this was completed, the deeper renal vasculature at the base of the resection was reapproximated with running 3-0 V- Loc suture. There was no obvious intrusion into the collecting system as a result of the operation. I then reapproximated the renal cortex and capsule over the V-Loc closure with a running zig-zagged 0 Vicryl suture using a sliding clip renorrhaphy technique. Several of these were used to complete the closure. Once closure was completed, the bulldog clamps were removed. Cross clamp time was approximately 30 minutes. Adequate hemostasis was present. I utilized approximately 9 cc of Evicel along the renorrhaphy closure, as well as at the site of the renal hilum, followed by placement of Surgicel in these locations. The specimen was retrieved in a 10 mm specimen bag through the commercial real estate assistant port. A 10 flat Chris-Persaud drain was placed through the 4th robotic arm port and draped along the left pericolic gutter lateral to the kidney. It was ultimately secured to the skin with a 2-0 silk suture. The intraabdominal pressure was then temporarily decreased to 5 mmHg, and adequate hemostasis was present at this point. The bowel structures and spleen were also noted to be intact and unharmed. The kidney had a good normal color to it. This completed the robotic portion of procedure. I then returned to the patient's bedside. The 12 mm camera port site anterior fascia was reapproximated with an 0 Vicryl suture and a fascial closure device. The infraumbilical midline port site incision was extended in order to allow for delivery of the specimen within the specimen bag. The anterior rectus fascia at this location was reapproximated with a running 0 Vicryl suture. All the wounds were anesthetized with a total of 30 cc of 0.5% Marcaine with epinephrine. The skin edges were reapproximated with running 4-0 Monocryl suture in a subcuticular fashion, followed by the application of Dermabond. The Chris-Persaud drain was connected to bulb suction. The patient was then placed in a flat position on the gurney. He was extubated and then taken to the recovery room. He tolerated the procedure well overall. However, his blood pressure was somewhat low during the case, but not to a dangerous extent, according to anesthesia. COMPLICATIONS: None. DISPOSITION: He was transferred to the recovery room in stable condition and will be admitted for postoperative care. Copy requested to: Sukhwinder Zapata MD /[id number]/MODL MTDD
[2017-01-05] MEDS: FINASTERIDE 5 MG TAB PO SCH (20:25)
[2017-01-05] MEDS: DOXAZOSIN MESYLATE 4 MG TAB PO SCH (20:25)
[2017-01-06 05:00] LABS: HEMATOCRIT 33.2 % (40.0-51.0); HEMOGLOBIN 11.6 g/dL (13.7-17.5); MEAN CELL HEMOGLOBIN 33.5 pg (27.9-34.1); MEAN CELL HEMOGLOBIN CONCENTR. 34.9 g/dL (32.4-36.7); RED BLOOD CELL COUNT 3.46 10^6/uL (4.40-6.38); RED CELL DISTRIBUTION WIDTH 12.3 % (11.5-15.2)
[2017-01-06 05:08] LABS: ANION GAP 10 mEq/L (8-16); CALCIUM 7.8 mg/dL (8.5-10.4); CARBON DIOXIDE 24 mEq/l (22-31); CHLORIDE 101 mEq/L (97-110); CREATININE 1.4 mg/dL (0.7-1.3); GLOMERULAR FILTRATION RATE 48; GLUCOSE 140 mg/dL (70-100); POTASSIUM 3.9 mEq/L (3.5-5.2); SODIUM 135 mEq/L (134-144)
[2017-01-06] MEDS: cefOXitin SODIUM 2 GM in D5W 100 ML IV SCH ×2 (05:20→13:48)
[2017-01-06] MEDS: KETOROLAC 0.5% 5 ML OPHT.BTL RTEYE SCH ×4 (05:20→20:35)
[2017-01-06] MEDS: D5W 1/2 NS 1,000 ML IV SCH ×2 (08:30→16:50)
[2017-01-06] MEDS: HYDROmorphONE/DILAUDID 6 MG/30 ML PCA IV PRN (08:46)
[2017-01-06] MEDS ORDERED: NON-FORMULARY NEW DRUG (Losartan Potassium [Cozaar] 100 MG) PO SCH (09:00)
[2017-01-06] MEDS: LOSARTAN POTASSIUM 50 MG TAB PO SCH (09:34)
[2017-01-06] MEDS: ROSUVASTATIN CALCIUM 10 MG TAB PO SCH (09:35)
[2017-01-06] MEDS: HYDROCHLOROTHIAZIDE 25 MG TAB PO SCH (09:35)
--- NOTE | 2017-01-06 09:59 | SOAPPROG ---
SOAP Progress Note Assessment/Plan: Assessment: POD 1 s/p robotically-assisted left partial nephrectomy - stable. Plan: 1. Ambulate. 2. Remove Almanza. 3. Continue CLD until nausea has resolved. 4. Continue MANAGER SALES TRAINING for pain control. 5. Continue JOSELINE drain. 6. Avoid Toradol due to elevated creatinine and pt. age. 7. Avoid LMWH due to bleeding risk. Will continue with SCD's when not ambulating. Subjective: He complains of pain in the LUQ and some nausea this AM. Dilaudid MANAGER [employer] TRAINING was increased to 0.4 mg by nursing staff to better control his pain. Objective: Vital Signs Temp Pulse Resp BP Pulse Ox 36.8 C 68 18 127/50 H 91 L 01/06/17 08:00 01/06/17 09:33 01/06/17 08:00 01/06/17 09:34 01/06/17 08:00 Laboratory Results 01/06/17 03:55 01/06/17 03:55 01/05/17 01/06/17 01/07/17 05:59 05:59 05:59 Intake Total 4205 Output Total 1620 Balance 2585 Physical Exam - Physical Exam General Appearance: WD/WN, alert, no apparent distress, other (sitting in a chair) Abdomen: soft, distended (mildly), other (tender in LUQ without peritoneal signs nor involuntary guarding) Male Genitalia: other (urine clear via Almanza) Back: CVA tenderness (minimal on left) Skin: normal color, warm/dry Extremities: non-tender, normal inspection Neuro/Psych: alert, normal mood/affect, oriented x 3 ICD10 Worksheet Patient Problems: Problems Problem Status Onset Acute blood loss anemia Acute Chronic diastolic congestive heart failure Acute S/P aortic valve replacement with bioprosthetic valve Acute ~09/21/16 Severe aortic valve regurgitation Acute Pulmonary fibrosis Chronic
[2017-01-06] MEDS ORDERED: morphINE PCA 30 MG/30 ML PCA IV PRN (14:24)
[2017-01-06] MEDS: FINASTERIDE 5 MG TAB PO SCH (20:32)
[2017-01-06] MEDS: DOXAZOSIN MESYLATE 4 MG TAB PO SCH (20:32)
[2017-01-07] MEDS: D5W 1/2 NS 1,000 ML IV SCH ×2 (00:24→08:29)
[2017-01-07 04:07] LABS: HEMOGLOBIN 10.3 g/dL (13.7-17.5); MEAN CELL HEMOGLOBIN 33.6 pg (27.9-34.1); MEAN CELL HEMOGLOBIN CONCENTR. 34.3 g/dL (32.4-36.7); MEAN CELL VOLUME 97.7 fL (81.5-99.8); RED BLOOD CELL COUNT 3.07 10^6/uL (4.40-6.38); RED CELL DISTRIBUTION WIDTH 12.6 % (11.5-15.2)
[2017-01-07 04:24] LABS: ANION GAP 6 mEq/L (8-16); CALCIUM 7.5 mg/dL (8.5-10.4); CARBON DIOXIDE 25 mEq/l (22-31); CHLORIDE 100 mEq/L (97-110); CREATININE 1.5 mg/dL (0.7-1.3); GLOMERULAR FILTRATION RATE 44; GLUCOSE 126 mg/dL (70-100); POTASSIUM 3.9 mEq/L (3.5-5.2); SODIUM 131 mEq/L (134-144)
--- NOTE | 2017-01-07 07:44 | SOAPPROG ---
MARIA ELENA Progress Note Assessment/Plan: Assessment: Renal mass Acute POD#2, path pending, continue present care Acute blood loss anemia Acute HCT at 30 % today , continue to monitor and consider tx if lowers Plan: as noted 01/07/17 09:42 Subjective: doing well, diet tolerated, pain ok Objective: Vital Signs Temp Pulse Resp BP Pulse Ox 36.4 C 74 20 114/55 L 90 L 01/07/17 06:00 01/07/17 06:00 01/07/17 06:00 01/07/17 06:00 01/07/17 06:00 Laboratory Results 01/07/17 03:21 01/07/17 03:21 01/06/17 01/07/17 01/08/17 05:59 05:59 05:59 Intake Total 4205 3700 250 Output Total 1620 830 300 Balance 2585 2870 -50 Physical Exam - Physical Exam General Appearance: alert Respiratory: No respiratory distress Cardiac/Chest: regular rate, rhythm Abdomen: soft Back: No CVA tenderness Skin: warm/dry Neuro/Psych: alert, oriented x 3 ICD10 Worksheet Patient Problems: Problems Problem Status Onset Renal mass Acute Acute blood loss anemia Acute Chronic diastolic congestive heart failure Acute S/P aortic valve replacement with bioprosthetic valve Acute ~09/21/16 Severe aortic valve regurgitation Acute Pulmonary fibrosis Chronic - ICD10 Problem Qualifiers (1) Renal mass
[2017-01-07] MEDS: HYDROCHLOROTHIAZIDE 25 MG TAB PO SCH (08:30)
[2017-01-07] MEDS: LOSARTAN POTASSIUM 50 MG TAB PO SCH (08:30)
[2017-01-07] MEDS: ROSUVASTATIN CALCIUM 10 MG TAB PO SCH (08:30)
[2017-01-07] MEDS: oxyCODONE IR 5 MG TAB PO PRN ×2 (09:56→13:55)
[2017-01-07] MEDS: DOXAZOSIN MESYLATE 4 MG TAB PO SCH (20:06)
[2017-01-07] MEDS: FINASTERIDE 5 MG TAB PO SCH (20:07)
[2017-01-08 04:31] LABS: HEMATOCRIT 28.1 % (40.0-51.0); HEMOGLOBIN 9.7 g/dL (13.7-17.5); MEAN CELL HEMOGLOBIN 33.3 pg (27.9-34.1); MEAN CELL HEMOGLOBIN CONCENTR. 34.5 g/dL (32.4-36.7); MEAN CELL VOLUME 96.6 fL (81.5-99.8); RED BLOOD CELL COUNT 2.91 10^6/uL (4.40-6.38); RED CELL DISTRIBUTION WIDTH 12.3 % (11.5-15.2)
[2017-01-08 05:00] LABS: ANION GAP 5 mEq/L (8-16); CALCIUM 7.5 mg/dL (8.5-10.4); CARBON DIOXIDE 25 mEq/l (22-31); CHLORIDE 100 mEq/L (97-110); CREATININE 1.3 mg/dL (0.7-1.3); GLOMERULAR FILTRATION RATE 52; GLUCOSE 129 mg/dL (70-100); POTASSIUM 3.8 mEq/L (3.5-5.2); SODIUM 130 mEq/L (134-144)
[2017-01-08] MEDS: oxyCODONE IR 5 MG TAB PO PRN ×3 (07:50→16:37)
[2017-01-08] MEDS: LOSARTAN POTASSIUM 50 MG TAB PO SCH (09:47)
[2017-01-08] MEDS: ROSUVASTATIN CALCIUM 10 MG TAB PO SCH (09:47)
[2017-01-08] MEDS: HYDROCHLOROTHIAZIDE 25 MG TAB PO SCH (09:48)
[2017-01-08] MEDS ORDERED: D5W NS 1,000 ML IV SCH (10:30)
--- NOTE | 2017-01-08 13:39 | SOAPPROG ---
MARIA ELENA Progress Note Assessment/Plan: Assessment: Renal mass Acute POD#3, path pending, continue present care Acute blood loss anemia Acute HCT at 28 % today , Pt prefers transfusion with pulmonary issues Plan: HCT down a bit more, Pt feels tx needed. 01/08/17 14:02 Subjective: feeling ok yet feels tx needed Objective: Vital Signs Temp Pulse Resp BP Pulse Ox 37.2 C 66 20 127/52 H 95 01/08/17 08:00 01/08/17 10:51 01/08/17 10:51 01/08/17 10:51 01/08/17 10:51 Laboratory Results 01/08/17 03:49 01/08/17 03:49 01/07/17 01/08/17 01/09/17 05:59 05:59 05:59 Intake Total 3700 1691 Output Total 830 1015 445 Balance 2870 676 -445 Physical Exam - Physical Exam General Appearance: alert Respiratory: No respiratory distress Abdomen: soft Back: No CVA tenderness Neuro/Psych: alert, oriented x 3 ICD10 Worksheet Patient Problems: Problems Problem Status Onset Renal mass Acute Acute blood loss anemia Acute Chronic diastolic congestive heart failure Acute S/P aortic valve replacement with bioprosthetic valve Acute ~09/21/16 Severe aortic valve regurgitation Acute Pulmonary fibrosis Chronic - ICD10 Problem Qualifiers (1) Renal mass
[2017-01-08] MEDS: FINASTERIDE 5 MG TAB PO SCH (20:18)
[2017-01-08] MEDS: DOXAZOSIN MESYLATE 4 MG TAB PO SCH (20:18)
[2017-01-09 05:17] LABS: HEMATOCRIT 32.8 % (40.0-51.0); HEMOGLOBIN 11.7 g/dL (13.7-17.5); MEAN CELL HEMOGLOBIN 32.9 pg (27.9-34.1); MEAN CELL HEMOGLOBIN CONCENTR. 35.7 g/dL (32.4-36.7); MEAN CELL VOLUME 92.1 fL (81.5-99.8); RED BLOOD CELL COUNT 3.56 10^6/uL (4.40-6.38); RED CELL DISTRIBUTION WIDTH 13.3 % (11.5-15.2)
[2017-01-09 05:28] LABS: ANION GAP 5 mEq/L (8-16); CARBON DIOXIDE 26 mEq/l (22-31); CHLORIDE 100 mEq/L (97-110); CREATININE 1.2 mg/dL (0.7-1.3); GLOMERULAR FILTRATION RATE 57; GLUCOSE 91 mg/dL (70-100); SODIUM 131 mEq/L (134-144)
--- NOTE | 2017-01-09 09:06 | SOAPPROG ---
MARIA ELENA Progress Note Assessment/Plan: Assessment: 1. POD 4 s/p robotically-assisted left partial nephrectomy - doing well. 2. Postop anemia due to blood loss - symptomatically doing much better following 2 unit transfusion yesterday. Plan: 1. Check creatinine level on JOSELINE drain then should be able to remove today. 2. Ready for d/c home today w/ [facility]. D/C summ. # [id number] Subjective: No complaints. Says he feels great and wants to go home today. Objective: Vital Signs Temp Pulse Resp BP Pulse Ox 37.1 C 57 L 16 145/65 H 93 01/09/17 04:00 01/09/17 04:00 01/09/17 04:00 01/09/17 04:00 01/09/17 04:00 Laboratory Results 01/09/17 04:39 01/09/17 04:39 01/08/17 01/09/17 01/10/17 05:59 05:59 05:59 Intake Total 1691 1485 Output Total 1015 1650 Balance 676 -165 Physical Exam - Physical Exam General Appearance: WD/WN, alert, no apparent distress Abdomen: non-tender, soft, other (incisions c/d/i) Skin: normal color, warm/dry Extremities: non-tender, normal inspection Neuro/Psych: alert, normal mood/affect, oriented x 3 ICD10 Worksheet Patient Problems: Problems Problem Status Onset Renal mass Acute Acute blood loss anemia Acute S/P aortic valve replacement with bioprosthetic valve Acute ~09/21/16 Chronic diastolic congestive heart failure Acute Severe aortic valve regurgitation Acute Pulmonary fibrosis Chronic
[2017-01-09] MEDS: LOSARTAN POTASSIUM 50 MG TAB PO SCH (09:09)
[2017-01-09] MEDS: HYDROCHLOROTHIAZIDE 25 MG TAB PO SCH (09:09)
[2017-01-09] MEDS: ROSUVASTATIN CALCIUM 10 MG TAB PO SCH (09:09)
[2017-01-09 12:50] VITALS: TEMP 98.4; O2SAT 92
--- NOTE | 2017-01-09 14:39 | PDIAF ---
- Diagnosis Diagnosis: Left renal mass Code Status: Full Code - Medication Management Discharge Medications: Medications to Continue on Transfer Doxazosin Mesylate [Cardura 4 MG (*)] 4 mg PO HS 01/14/13 [Last Taken 01/04/17 21:00] ALPRAZolam [Xanax 0.5 MG (*)] 0.5 mg PO TID PRN 05/17/15 [Last Taken 01/05/17 05 :30] Finasteride [Proscar 5 MG (*)] 5 mg PO HS 05/17/15 [Last Taken 01/04/17 21:00] Herbals/Supplements -Info Only 1 ea PO DAILY 05/17/15 [Last Taken 1 Week Ago] traZODone [traZODONE 100MG (*)] 100 mg PO HS 05/17/15 [Last Taken 01/04/17 21:00 ] Hydrochlorothiazide [HCTZ (*)] 25 mg PO DAILY 08/31/16 [Last Taken 01/04/17 08: 00] Multivitamins [Multivitamin (*)] 2 each PO DAILY 08/31/16 [Last Taken 1 Week Ago ] Rosuvastatin Calcium [Crestor 5mg] 5 mg PO DAILY 08/31/16 [Last Taken 01/05/17 05:30] Losartan Potassium [Cozaar] 100 mg PO DAILY 12/13/16 [Last Taken 01/05/17 05:30] traZODone [traZODONE 100MG (*)] 100 mg PO DAILY@02 12/13/16 [Last Taken Unknown] Losartan Potassium [Cozaar 50 mg (*)] 100 mg PO DAILY #0 tab 01/09/17 [Last Taken Unknown] Senior Living Antibiotics: No Discharge Medications: Refer to the Discharge Home Medication list for PRN reason. PICC Care - Routine: N/A - Orders Services needed: Home Care, Physical Therapy, Occupational Therapy Home Care Face to Face: I certify that this patient was under my care and that I had the required [id number] encounter meeting the encounter requirements on the discharge day. My findings support the fact that the patient is homebound as defined in CMS Chapter 7 Medicare Benefits Manual 30.1.1, The condition of the patient is such that there exists a normal inability to leave home and consequently, leaving home would require a considerable and taxing effort. Isolation Type: None Diet Recommendation: no restrictions on diet Diet Texture: Regular Texture Diet Almanza: No Activity/Weight Bearing Restrictions: No lifting/pushing/pulling > 15 lbs for 3 weeks - Follow Up Care Current Providers and Referrals: Sukhwinder Zapata MD [Primary Care Provider] -
--- NOTE | 2017-01-09 15:21 | GDS ---
[f rep st] DISCHARGE SUMMARY ADMIT DIAGNOSIS: Left renal mass. DISCHARGE DIAGNOSIS: Left renal mass. PROCEDURE: Robotically-assisted left partial nephrectomy on 01/05/2017. HOSPITAL COURSE: Refer the reader to the operative report for details regarding the operation. Pos toperatively, the patient progressed somewhat more slowly than normal. He had more pain initially t hat was eventually managed well with IV morphine PAPERBOARD BOXES ESTIMATOR, followed by transition to oral medications onc e he was tolerating a regular diet. These treatments controlled his pain following postoperative da y 2, and throughout the remainder of the hospitalization. His incision was clean, dry, and intact d uring the postoperative period. He was ambulating with physical therapy assistance by postoperative day 1. His vital signs were stable and he was afebrile during the postoperative period. The patie nt did experience a decrease in hemoglobin and hematocrit postoperatively. After discussing this fu rther over the weekend with Dr. Mcclure (who was performing rounds on the patient), the patient opted for receiving 2 units of packed red blood cell transfusion which was performed on 01/08. Afterward, the patient states he felt much better with increased energy and had no other complaints. By the [facility] postoperative day 4, he was tolerating a regular diet and ambulating without assistance, void ing without difficulty, and was experiencing flatus. His post-transfusion hemoglobin and hematocrit were stable. Postoperative chemistries were also stable. The patient was ready for discharge on p ostoperative day 4. Surgical pathology results were pending at that time. He is to continue his regular medications. He is to maintain a regular diet. Activity restriction instructions have been provided. The patient will be discharged on no new medications. He will rec ve [facility] nursing for RN care, physical therapy, and occupational therapy, all of which were deemed to be necessary following discharge. The patient will be contacted with pathology results on ce they become available. He has been instructed to follow up in my office in about 3 weeks. Copy requested to: Sukhwinder Zapata /[id number]/MODL
[2017-01-09 16:32] VITALS: BP 152/61; PULSE 65; RESP 18
== END 2017-01-09 16:19 | disposition home health service (06) | DRG 688 ==
LOC: F3E 06:37 → F2W 13:59 → F1N 01-08 17:30
PROVIDERS: ADMIT Specialist; ATTEND Specialist
DX: D49.512 Neoplasm of unspecified behavior of left kidney (principal); E78.00 Pure hypercholesterolemia, unspecified; I10 Essential (primary) hypertension; J84.112 Idiopathic pulmonary fibrosis; G47.33 Obstructive sleep apnea (adult) (pediatric); Z95.2 Presence of prosthetic heart valve
CPT/HCPCS: 97116-GP; 97162-GP; 97530-GP; G8978-GP-CK; G8979-GP-CI; J0694; J1100; J1170; J2001; J2270; J2370; J2405; J2704; J3010; P9016

== ENCOUNTER 2017-03-15 11:15 | Inpatient (IN) | payer OTHER, MEDICARE ==
[~2017-03-15 11:15] MED LIST changes: +ROPIVACAINE 0.2% 80 MG, EPINEPHrine 0.2 MG, KETOROLAC TROMETHAMINE 30 MG, morphINE 10 M... IU ONE; +ceFAZolin 2 GM/SWFI 2 GM/20 ML SYR IVP ONE; -cefOXitin SODIUM 2 GM in D5W 100 ML IV ONE
[2017-03-15] MEDS ORDERED: DEXAMETHASONE 4 MG/ML VIAL IVP ONE (11:46)
[2017-03-15] MEDS ORDERED: ACETAMINOPHEN 325 MG TAB PO ONE (11:46)
[2017-03-15] MEDS ORDERED: FAMOTIDINE 20 MG TAB PO ONE (11:46)
[2017-03-15] MEDS ORDERED: LR 1,000 ML IV ONE (11:48)
[2017-03-15] MEDS ORDERED: ceFAZolin 1 GM/5 ML SYR ONE (12:29)
--- NOTE | 2017-03-15 12:37 | PDHPUP ---
History & Physical Update H&P update statement: This history and physical update is based on an assessment of the patient which was completed after admission or registration (within 24 hours), but prior to the surgery/procedure.
[2017-03-15] MEDS ORDERED: ceFAZolin 2 GM/SWFI 20 ML SYR IVP ONE (12:39)
--- NOTE | 2017-03-15 12:42 | PDANEPAE ---
ANE History of Present Illness right hip osteoarthritis ANE Past Medical History - Cardiovascular History Hx Hypertension: Yes Hx Arrhythmias: No Hx Chest Pain: No Hx Coronary Artery / Peripheral Vascular Disease: No Hx CHF / Valvular Disease: Yes Hx Palpitations: No Cardiovascular History Comment: AVR with Danielito 09/21/16. hypercholesterolemia. hyperlipidemia. htn - Pulmonary History Hx COPD: No Hx Asthma/Reactive Airway Disease: No Hx Recent Upper Respiratory Infection: No Hx Oxygen in Use at Home: Yes O2 in Use at Home (L/minute): 3L w/mask/CPAP Hx Sleep Apnea: Yes Sleep Apnea Screening Result - Last Documented: Positive Pulmonary History Comment: Dx w/Idiopathic Pulmonary Fibrosis at [facility]. MIR uses CPAP- instructed pt to bring to hospital - Neurologic History Hx Cerebrovascular Accident: No Hx Seizures: No Hx Dementia: No - Endocrine History Hx Diabetes: No - Renal History Hx Renal Disorders: Yes Renal History Comment: hx renal CA - Liver History Hx Hepatic Disorders: No - Neurological & Psychiatric Hx Hx Neurological and Psychiatric Disorders: No Neurological / Psychiatric History Comment: minimal back pain in A.M. - Cancer History Hx Cancer: No Cancer History Comment: renal cell - Congenital Disorder History Hx Congenital Disorders: No - GI History Hx Gastrointestinal Disorders: No Gastrointestinal History Comment: occ Nexium for heartburn - Other Health History Other Health History: stress fx R hip. upper and lower partials - Chronic Pain History Chronic Pain: Yes (right hip pain) - Surgical History Prior Surgeries: L dawson-nephrectomy 01-05-17. 09/21/16 AVR with Danielito. L dawson- lamincetomy L4/L5 -Dr Smipson. back sx w/Dr MATTHEWS. knee sx-meniscus ANE Review of Systems Review of Systems: - Exercise capacity METS (RN): 4 METS ANE Patient History - Allergies Allergies/Adverse Reactions: shellfish derived Allergy (Verified 03/08/17 11:58) Sulfa (Sulfonamide Antibiotics) Allergy (Verified 03/08/17 11:58) Rash - Home Medications Home Medications: RX: Doxazosin Mesylate [Cardura 4 MG (*)] 4 mg PO HS 01/14/13 [Last Taken ] RX: ALPRAZolam [Xanax 0.5 MG (*)] 0.5 mg PO Q6HRS PRN 05/17/15 [Last Taken 03/15] RX: Finasteride [Proscar 5 MG (*)] 5 mg PO HS 05/17/15 [Last Taken 03/14/17] RX: Herbals/Supplements -Info Only 1 ea PO DAILY 05/17/15 [Last Taken 03/08/17 09:00] RX: traZODone [traZODONE 100MG (*)] 100 mg PO HS 05/17/15 [Last Taken 03/15/17] RX: Hydrochlorothiazide [HCTZ (*)] 25 mg PO DAILY 08/31/16 [Last Taken 03/13/17] RX: Multivitamins [Multivitamin (*)] 1 each PO DAILY 08/31/16 [Last Taken 09:00] RX: Rosuvastatin Calcium [Crestor 5mg] 5 mg PO DAILY 08/31/16 [Last Taken ] RX: traZODone [traZODONE 100MG (*)] 100 mg PO DAILY@02 PRN 12/13/16 [Last Taken 03/15/17] Aspirin [Aspirin 81mg (*)] 81 mg PO DAILY 03/08/17 [Last Taken 03/08/17 09:00] - NPO status NPO Since - Liquids (Date): 03/15/17 NPO Since - Solids (Date): 03/14/17 - Smoking Hx Smoking Status: Never smoked - Family Anes Hx Family Hx Anesthesia Complications: none ANE Labs/Vital Signs - Vital Signs Blood Pressure: 155/82 Heart Rate: 56 Respiratory Rate: 16 O2 Sat (%): 95 Height: 167.64 cm Weight: 69.853 kg ANE Physical Exam - Airway Neck exam: FROM Mallampati Score: Class 1 Mouth exam: normal dental/mouth exam - Pulmonary Pulmonary: no respiratory distress - Cardiovascular Cardiovascular: regular rate and rhythym - ASA Status ASA Status: III ANE Anesthesia Plan Anesthesia Plan: spinal
[2017-03-15] MEDS ORDERED: fentaNYL 100 MCG/2 ML INJ ONE (12:46)
[2017-03-15] MEDS ORDERED: PROPOFOL/EMULSION 500 MG/50 ML BOTTLE IV ONE (12:47)
[2017-03-15] MEDS ORDERED: PROPOFOL 200 MG/20 ML VIAL ONE (14:37)
[2017-03-15] MEDS ORDERED: HYDROmorphONE/DILAUDID 1 MG/ML INJ IVP PRN (15:06)
[2017-03-15] MEDS ORDERED: HYDROCODONE/APAP 5/325 TAB PO PRN (15:06)
[2017-03-15] MEDS ORDERED: ONDANSETRON 4 MG/2 ML VIAL IVP PRN ×2 (15:06→15:53)
[2017-03-15] MEDS ORDERED: PROMETHAZINE HCL 25 MG/ML INJ IVP PRN ×2 (15:06→15:53)
[2017-03-15] MEDS ORDERED: NALOXONE HCL 0.4 MG/ML INJ IVP PRN (15:06)
[2017-03-15] MEDS ORDERED: fentaNYL 100 MCG/2 ML INJ IVP PRN (15:06)
[2017-03-15] MEDS ORDERED: LACTULOSE 20 GM/30 ML UDCUP PO PRN (15:53)
[2017-03-15] MEDS ORDERED: POLYETHYLENE GLYCOL 3350 17 GM PKT PO PRN (15:53)
[2017-03-15] MEDS ORDERED: TEMAZEPAM 15 MG CAP PO PRN (15:53)
[2017-03-15] MEDS ORDERED: diphenhydrAMINE 25 MG CAP PO PRN (15:53)
[2017-03-15] MEDS ORDERED: DIPHENOXYLATE/ATROPINE LOMOTIL 1 TAB PO PRN (15:53)
[2017-03-15] MEDS ORDERED: CYCLOBENZAPRINE 10 MG TAB PO PRN (15:53)
[2017-03-15] MEDS ORDERED: ONDANSETRON DISINTEGRATING 4 MG TAB PO PRN (15:53)
[2017-03-15] MEDS ORDERED: BISACODYL 10 MG SUPP PR PRN (15:53)
[2017-03-15] MEDS ORDERED: WARFARIN SODIUM 5 MG TAB PO ONE (15:53)
[2017-03-15] MEDS ORDERED: METOCLOPRAMIDE 10 MG/2 ML VIAL IVP PRN (15:53)
[2017-03-15] MEDS ORDERED: MAGNESIUM HYDROXIDE 30 ML UDCUP PO PRN (15:53)
[2017-03-15] MEDS ORDERED: PROMETHAZINE HCL 25 MG SUPPR PR PRN (15:53)
--- NOTE | 2017-03-15 15:53 | POSTOPPROG ---
Post Op Note Date of Operation: 03/15/17 Surgeon: Kyle Ogden Anesthesia: Epidural, GET(General Endotracheal) Pre-op Diagnosis: right hip osteoarthritis Post-op Diagnosis: right hip osteoarthritis Procedure: Right total hip replacement Inf/Abcess present in the surg proc area at time of surgery?: No Depth: Deep Incisional (Fascial) EBL: 500-1000 Complications: No complications
--- NOTE | 2017-03-15 15:58 | POSTANESTH ---
Post Anesthetic Evaluation Cardiovascular Status: Normal, Stable Respiratory Status: Normal, Stable Level of Consciousness/Mental Status: Can Participate in Eval Pain Control: Adequate, Prn Tx Ordered Nausea/Vomiting Control: Adequate, Prn Tx Ordered Complications Possibly Related to Anesthesia: None Noted
[2017-03-15] MEDS ORDERED: LR 1,000 ML IV SCH (16:00)
[2017-03-15] MEDS ORDERED: PHARMACY PAIN CONSULT 1 EA MISC PRN (17:05)
[2017-03-15] MEDS: WARFARIN SODIUM 5 MG TAB PO ONE ×2 (18:02→18:12)
[2017-03-15] MEDS: ACETAMINOPHEN 325 MG TAB PO SCH ×2 (18:09→23:14)
[2017-03-15] MEDS: FAMOTIDINE 20 MG TAB PO SCH (20:23)
[2017-03-15] MEDS: SENNOSIDES/DOCUSATE SODIUM TAB PO SCH (20:23)
[2017-03-15] MEDS: FINASTERIDE 5 MG TAB PO SCH (20:23)
[2017-03-15] MEDS: traZODone 100 MG TAB PO SCH (20:24)
[2017-03-15] MEDS: DOXAZOSIN MESYLATE 4 MG TAB PO SCH (20:24)
[2017-03-15] MEDS: ceFAZolin 2 GM/DEXTROSE 100 ML IV SCH (20:24)
[2017-03-15] MEDS: ALPRAZolam 0.5 MG TAB PO PRN (23:16)
[2017-03-16] MEDS ORDERED: traZODone 100 MG TAB PO PRN (02:00)
--- NOTE | 2017-03-16 02:44 | GOP ---
[f rep st] OPERATIVE REPORT DATE OF OPERATION: 03/15/2017 SURGEON: Kyle Ogden MD SENIOR CHEMIST: Esperanza Banuelos PA-C. ANESTHESIA: General. PREOPERATIVE DIAGNOSIS: Right hip osteoarthritis with subchondral bone collapse. POSTOPERATIVE DIAGNOSIS: Right hip osteoarthritis with subchondral bone collapse. PROCEDURE PERFORMED: Right total hip arthroplasty using direct superior approach. FINDINGS: DESCRIPTION OF PROCEDURE: The patient was taken to the operating room, administered spinal anesthesi a, placed in the left lateral decubitus position. Had his right hip and lower extremity prepped and draped in normal sterile fashion. A direct superior approach was utilized. The greater trochanter w as demarcated with a marking pen. A 45-degrees angle was made from the superior posterior angle of t he greater trochanter. It was carried through dermal and subcutaneous tissues. The fascia overlying gluteus mechelle was divided. Blunt spreading was performed down to the fat pad medially. The fat p ad was excised over the external rotators. The piriformis was isolated. We reflected the piriformis off the posterior hip capsule along with the obturator externus. These were then tagged. The capsu lar incision was then made and this was tagged. The head was dislocated. The head and neck cut was made with the oscillating saw. We freshened up this cut another centimeter distal. The acetabulum w as exposed. The fatty tissue was removed from the cotyloid notch. The labral tissue was excised. T he reaming commenced with a size 49 and extended up to a size 57 in 2 mm increments. This 57 cup fit appropriately. This was impacted into position. Three screws were used in a cephalad direction. T he cup liner was placed. We used a 10-degree posterior liner. The stem was then dressed. The proxi mal femur was exposed and delivered out proximally with dandelion retractor underneath the femoral ne ck. The starting reamer was placed down through the canal. A box osteotome was used to remove bone laterally. The reaming commenced with a size 5 and extended up to a size 9. Broaching began with a size 7 and extended up to a size 9. The 9 broach was utilized with a +5 neck length. This was felt to be stable. Thorough lavage performed with normal saline. The real implants were opened. The therese m was impacted. The trunnion was then dried. The 5 mm +5 neck length was inserted onto the trunnion and impacted with 3 light blows. The head was distal relocated. The hip was put through range of m otion, felt to be stable. Leg lengths were felt to be close to equal. Thorough lavage performed wit h normal saline. Closure was performed with a #2 Mersilene in the piriformis and posterior hip capsu le, brought through drill holes in the greater trochanter. Closure was performed of the gluteal fasc ia with a #1 Vicryl suture. Closure was performed with subcutaneous tissue with a 2-0 Vicryl suture followed by closure of the dermis with olivia. A sterile compression dressing was applied. The pat ient tolerated the procedure well, was transferred back to recovery in stable condition. No operativ e complications. COMPLICATIONS: None. /[id number]/MODL
[2017-03-16] MEDS: ceFAZolin 2 GM/DEXTROSE 100 ML IV SCH (03:39)
--- NOTE | 2017-03-16 04:05 | GCON ---
[f rep st] CONSULTATION INTERNAL MEDICINE CONSULTATION DATE OF CONSULTATION: 03/15/2017 REFERRING PHYSICIAN: Kyle Ogden MD REASON FOR CONSULTATION: Medical opinion regarding perioperative management of hypertension and othe r medical issues. HISTORY: The patient is an 87-year-old male with advanced degenerative arthritis, who has failed con servative management, ultimately has elected to undergo right total hip arthroplasty today with Dr. Amado rodriguez. He was doing very well prior to surgery in his usual state of health. He is also doing very w ell post surgery and has absolutely no complaints and very pleased with how he feels this soon after surgery. He has had no recent complications of his chronic medical conditions, although has had 2 re cent surgeries, including a partial nephrectomy for renal cell carcinoma on January 05, 2017, and a bi oprosthetic aortic valve replacement for aortic regurgitation with Dr. Esteves on September 21, 2016. He stephanie cordell without incident from these procedures. PAST MEDICAL HISTORY: 1. Bioprosthetic aortic valve replacement. 2. Preop cardiac catheterization showing only trace obstruction. 3. Renal cell carcinoma, status post heminephrectomy. 4. IPF on 2 L at night, that is idiopathic pulmonary fibrosis. 5. Hypertension. 6. GI bleed secondary to gastritis. 7. Benign prostatic hypertrophy. PAST SURGICAL HISTORY: Back surgery. MEDICATIONS: Please see computer record for full detailed list. ALLERGIES: To sulfa and shellfish. SOCIAL HISTORY: No smoking. No alcohol. He lives with his . 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 REVIEW OF SYSTEMS: Complete review of systems obtained. Review of systems is negative regarding con stitutional, HEENT, GI, pulmonary, cardiovascular, , hematology, skin, musculoskeletal, endocrine, psych, except for positives and negatives as noted in HPI. FAMILY HISTORY: Reviewed and noncontributory to presenting complaint. PHYSICAL EXAMINATION: GENERAL: Well-developed, well-nourished male, in no acute distress. VITAL SI GNS: Temperature is 36.5, pulse is 60, blood pressure 147/76, saturating 96% on room air. EYES: No rmal conjunctivae. Pupils are equal, round, reactive to light. ENT: Normal ears and nose. Hearing intact. Normal lips and teeth. Oropharynx moist. NECK: Trachea midline. No thyromegaly. CHEST: Normal respiratory effort. LUNGS: Clear to auscultation bilaterally. CARDIOVASCULAR: Regular ra te and rhythm. No murmur. No lower extremity edema. ABDOMEN: Soft. Nontender. No hepatosplenome benny. SKIN: Warm, dry, intact. No rash. MUSCULOSKELETAL: No cyanosis or clubbing. Strength 5/5 upper and lower extremities. NEUROLOGIC: Cranial nerves intact. Normal sensation to light touch. PSYCH: Alert and oriented x3. Normal mood and affect. Normal judgment and insight. Normal memory. MEDICAL RECORD REVIEW: I reviewed all of his medical records, including recent operative reports reg arding his partial nephrectomy and bioprosthetic aortic valve replacement. LABORATORY DATA: Laboratory studies ordered for tomorrow morning, including a CBC and a Chem-7. ASSESSMENT AND PLAN: 1. Right total hip arthroplasty. PT/OT to consult. 2. Deep vein thrombosis prophylaxis. Warfarin has been started by Orthopedic Surgery. Will follow INRs. 3. Benign prostatic hypertrophy. Continue Proscar and Cardura. 4. Hypertension. Continue losartan and hydrochlorothiazide. 5. Recent bioprosthetic aortic valve replacement. This is stable. 6. Idiopathic pulmonary fibrosis. Continue 2 L at night. Thank you very much for this consultation. Hospitalist Medicine will continue to follow. /[id number]/MODL
[2017-03-16] MEDS: ACETAMINOPHEN 325 MG TAB PO SCH ×3 (05:04→18:10)
[2017-03-16 05:47] LABS: ANION GAP 10 mEq/L (8-16); CALCIUM 8.3 mg/dL (8.5-10.4); CARBON DIOXIDE 25 mEq/l (22-31); CHLORIDE 105 mEq/L (97-110); GLOMERULAR FILTRATION RATE > 60; GLUCOSE 131 mg/dL (70-100); POTASSIUM 4.5 mEq/L (3.5-5.2); SODIUM 140 mEq/L (134-144)
[2017-03-16 05:50] LABS: % IMMATURE GRANULYOCYTES 0.5 % (0.0-1.1); ABSOLUTE IMMATURE GRANULOCYTES 0.07 10^3/uL (0.00-0.10); ADD DIFF? NO; ADD MORPH? NO; ADD SCAN? NO; ATYPICAL LYMPHOCYTE FLAG 10 (0-99); FRAGMENT RBC FLAG 0 (0-99); HEMATOCRIT 26.8 % (40.0-51.0); HEMOGLOBIN 9.6 g/dL (13.7-17.5); INR 1.41 (0.83-1.16); LEFT SHIFT FLG 0 (0-99); LIPEMIA HEMOLYSIS FLAG 90 (0-99); MEAN CELL HEMOGLOBIN CONCENTR. 35.8 g/dL (32.4-36.7); MEAN PLATELET VOLUME 10.3 fL (8.7-11.7); PLATELET CLUMPS FLAG 0 (0-99); PLATELET COUNT 170 10^3/uL (150-400); PROTIME(PATIENT) 17.2 SEC (12.0-15.0); RED BLOOD CELL COUNT 2.82 10^6/uL (4.40-6.38)
--- NOTE | 2017-03-16 07:33 | SOAPPROG ---
SOAP Progress Note Assessment/Plan: Assessment: S/P Right total hip arthroplasty Plan: WBAT RLE Activities as tolerated Posterior hip precautions - abduction pillow in bed JOANA/s/SCD's BLE DVT prophylaxis - Warfarin PT/OT Ice to right hip Pain medicine as needed Ortho Stable Plan for D/C tomorrow Subjective: 87 year old male who is POD#1 from a Right total hip arthroplasty. He states his pain is controlled and he is feeling well. Objective: Vital Signs Temp Pulse Resp BP Pulse Ox 36.7 C 59 L 16 100/58 L 93 03/16/17 03:42 03/16/17 03:42 03/16/17 03:42 03/16/17 03:42 03/16/17 03:42 Laboratory Results 03/16/17 04:46 03/16/17 04:46 03/15/17 03/16/17 03/17/17 05:59 05:59 05:59 Intake Total 920 300 Output Total 150 100 Balance 770 200 PT 17.2 SEC (12.0-15.0) H 03/16/17 04:46 INR 1.41 (0.83-1.16) H 03/16/17 04:46 Physical exam of the right hip: dressings clean, dry and intact. Patient able to flex his hip. Normal sensation to light touch in the RLE. Distal pulse present in the RLE. ICD10 Worksheet Patient Problems: Problems Problem Status Onset Acute blood loss anemia Acute Chronic diastolic congestive heart failure Acute Renal mass Acute S/P aortic valve replacement with bioprosthetic valve Acute ~09/21/16 Severe aortic valve regurgitation Acute Pulmonary fibrosis Chronic
[2017-03-16] MEDS: oxyCODONE IR 5 MG TAB PO PRN ×3 (08:21→18:11)
[2017-03-16] MEDS: ROSUVASTATIN CALCIUM 10 MG TAB PO SCH (08:22)
[2017-03-16] MEDS: MULTIVITAMINS 1 EACH TAB PO SCH (08:24)
[2017-03-16] MEDS: SENNOSIDES/DOCUSATE SODIUM TAB PO SCH ×2 (08:24→19:59)
[2017-03-16] MEDS: FAMOTIDINE 20 MG TAB PO SCH ×2 (08:25→19:59)
[2017-03-16] MEDS ORDERED: Herbals/Supplements -Info Only PO SCH (09:00)
[2017-03-16] MEDS ORDERED: LOSARTAN POTASSIUM 50 MG TAB PO SCH (09:00)
[2017-03-16] MEDS ORDERED: NON-FORMULARY NEW DRUG (Multivitamins [Multivitamin (*)] 1 EACH) PO SCH (09:00)
[2017-03-16] MEDS ORDERED: HYDROCHLOROTHIAZIDE 25 MG TAB PO SCH (09:00)
--- NOTE | 2017-03-16 13:29 | HOSPPROG ---
Hospitalist Progress Note Assessment/Plan: Rt EDE POD #1, post-op care per surgery BPH - cont proscar and cardura Hypertension - well controlled. cont losartan, hctz AVR - stable Pulmonary fibrosis - on baseline 2 LPM O2 at night DVT PPLX - on coumadin per surg, follow daily INR Full code dispo - cont inpt, PT/OT Subjective: Pt feels well. Pain controlled. Denies CP, SOB, fevers/chills or abdominal symptoms. Objective: Vital Signs Temp Pulse Resp BP Pulse Ox 36.7 C 54 L 16 122/49 H 94 03/16/17 12:00 03/16/17 12:00 03/16/17 12:00 03/16/17 12:12 03/16/17 12:00 Laboratory Results 03/16/17 04:46 03/16/17 04:46 03/15/17 03/16/17 03/17/17 05:59 05:59 05:59 Intake Total 920 300 Output Total 150 200 Balance 770 100 PT 17.2 SEC (12.0-15.0) H 03/16/17 04:46 INR 1.41 (0.83-1.16) H 03/16/17 04:46 - Physical Exam Constitutional: no apparent distress Eyes: PERRL Ears, Nose, Mouth, Throat: moist mucous membranes Cardiovascular: regular rate and rhythym Respiratory: no respiratory distress, clear to auscultation Gastrointestinal: normoactive bowel sounds, soft, non-tender abdomen Skin: warm Musculoskeletal: other (extremities warm, well perfused) Neurologic: AAOx3 Psychiatric: interacting appropriately ICD10 Worksheet Patient Problems: Problems Problem Status Onset Acute blood loss anemia Acute Chronic diastolic congestive heart failure Acute Renal mass Acute S/P aortic valve replacement with bioprosthetic valve Acute ~09/21/16 Severe aortic valve regurgitation Acute Pulmonary fibrosis Chronic
[2017-03-16] MEDS ORDERED: WARFARIN SODIUM 3 MG TAB PO SCH (16:00)
--- NOTE | 2017-03-16 16:52 | ASMTCMCOM ---
CM Note CM Note Notes: PT rec HHC, pt requests [facility]. Referral sent in [employer], pt accepted for services. CM to follow. Date Signed: 03/16/2017 04:52 PM Electronically Signed By:MARIO Mcdonnell
[2017-03-16] MEDS: DOXAZOSIN MESYLATE 4 MG TAB PO SCH (19:59)
[2017-03-16] MEDS: traZODone 100 MG TAB PO SCH (19:59)
[2017-03-16] MEDS: FINASTERIDE 5 MG TAB PO SCH (19:59)
[2017-03-16] MEDS: ALPRAZolam 0.5 MG TAB PO PRN (20:02)
[2017-03-17] MEDS: ACETAMINOPHEN 325 MG TAB PO SCH ×3 (00:10→11:48)
[2017-03-17 04:35] VITALS: O2SAT 93
[2017-03-17 05:30] LABS: HEMATOCRIT 26.2 % (40.0-51.0); HEMOGLOBIN 8.7 g/dL (13.7-17.5)
[2017-03-17 05:38] LABS: INR 1.72 (0.83-1.16); PROTIME(PATIENT) 20.2 SEC (12.0-15.0)
[2017-03-17 07:48] VITALS: PULSE 65; RESP 15
[2017-03-17] MEDS: MULTIVITAMINS 1 EACH TAB PO SCH (08:06)
[2017-03-17] MEDS: FAMOTIDINE 20 MG TAB PO SCH (08:06)
[2017-03-17] MEDS: ROSUVASTATIN CALCIUM 10 MG TAB PO SCH (08:07)
[2017-03-17] MEDS: SENNOSIDES/DOCUSATE SODIUM TAB PO SCH (08:09)
--- NOTE | 2017-03-17 08:57 | SOAPPROG ---
SOAP Progress Note Assessment/Plan: Assessment: POD#2 Right total hip arthroplasty Plan: WBAT RLE Activities as tolerated Posterior hip precautions - abduction pillow in bed JOANA/s/SCD's BLE DVT prophylaxis - Warfarin PT/OT Ice to right hip Pain medicine & muscle relaxer as needed Ortho Stable D/C planning for today: home PT and home nurse for blood draws/dressing change. Subjective: 87 year old male who is post op day #2 from a right total hip arthroplasty. Patient states his hip is feeling well and overall he is stable. Objective: Vital Signs Temp Pulse Resp BP Pulse Ox 36.9 C 65 15 98/43 L 93 03/17/17 07:47 03/17/17 07:47 03/17/17 07:47 03/17/17 07:47 03/17/17 07:47 Laboratory Results 03/17/17 05:06 03/16/17 04:46 03/16/17 03/17/17 03/18/17 05:59 05:59 05:59 Intake Total 920 1950 Output Total 150 2065 Balance 770 -115 PT 20.2 SEC (12.0-15.0) H 03/17/17 05:06 INR 1.72 (0.83-1.16) H 03/17/17 05:06 Physical exam of the right hip: dressing changed today, clean, dry and intact. Incision healing nicely: no erythema, no active drainage. Patient able to flex his hip. Normal sensation to light touch in the RLE. Distal pulse present in the RLE. ICD10 Worksheet Patient Problems: Problems Problem Status Onset Acute blood loss anemia Acute Chronic diastolic congestive heart failure Acute Renal mass Acute S/P aortic valve replacement with bioprosthetic valve Acute ~09/21/16 Severe aortic valve regurgitation Acute Pulmonary fibrosis Chronic
[2017-03-17] MEDS: oxyCODONE IR 5 MG TAB PO PRN ×2 (10:29→15:03)
[2017-03-17 12:14] VITALS: BP 116/60; TEMP 96.8
--- NOTE | 2017-03-17 14:08 | PDIAF ---
- Diagnosis Diagnosis: status post right total hip arthroplasty Code Status: Full Code - Medication Management Discharge Medications: Medications to Continue on Transfer Herbals/Supplements -Info Only 1 ea PO DAILY 05/17/15 [Last Taken 03/08/17 09:00 ] Cyclobenzaprine [Flexeril 10 MG (*)] 10 mg PO TID PRN #30 tab 03/17/17 [Last Taken Unknown] Doxazosin Mesylate [Cardura 4 MG (*)] 4 mg PO HS tab 03/17/17 [Last Taken Unknown] Finasteride [Proscar 5 MG (*)] 5 mg PO HS tab 03/17/17 [Last Taken Unknown] Hydrochlorothiazide [HCTZ (*)] 25 mg PO DAILY tab 03/17/17 [Last Taken Unknown] Losartan Potassium [Cozaar 50 mg (*)] 100 mg PO DAILY tab 03/17/17 [Last Taken Unknown] Warfarin Sodium [Coumadin 3MG (*)] 3 mg PO ONCE@1600 tab 03/17/17 [Last Taken Unknown] oxyCODONE IR [Oxycodone Ir (*)] 5 - 10 mg PO Q4HRS PRN #50 tab 03/17/17 [Last Taken Unknown] Discharge Medications: Refer to the Discharge Home Medication list for PRN reason. - Orders Services needed: Home Care (Home care needed for dressing change and blood draws on Monday and morning x 3 weeks.), Physical Therapy, Occupational Therapy Home Care Face to Face: I certify that this patient was under my care and that I had the required [id number] encounter meeting the encounter requirements on the discharge day. My findings support the fact that the patient is homebound as defined in Home Care Face to Face Continued: CMS Chapter 7 Medicare Benefits Manual 30.1.1 , The condition of the patient is such that there exists a normal inability to leave home and consequently, leaving home would require a considerable and taxing effort. Diet Recommendation: no restrictions on diet Diet Texture: Regular Texture Diet Jeremy Stockings Discontinue Date: 03/30/2017 - Follow Up Care Current Providers and Referrals: Sukhwinder Zapata MD [Primary Care Provider] - Kyle Ogden MD [Medical Doctor] - follow up in 2 weeks (Follow up in the office with Dr. Ogden in 10-14 days post op)
--- NOTE | 2017-03-17 15:36 | ASDISCHSUM ---
Discharge Information Plan Status:Home with Home Health Medically Cleared to Leave: Discharge Date:03/17/2017 03:32 PM CM D/C Disposition:Home Health Service ADT D/C Disposition:Home, Routine, Self-Care Projected Discharge Date:03/17/2017 11:00 AM Transportation at D/C: Discharge Delay Reason: Follow-Up Date:03/17/2017 11:00 AM Discharge Slot: Final Diagnosis: Placement Information Referral Type:*Home Health Care Services Referral ID:[id number] Provider Name:Eve Steinberg Address 1:[address] [place] Phone Number: Address 2: Fax Number: [facility]:[place] Selection Factors: State:[place] Patient Contact Information Contact Name:CORTESDAVINACARRIE Relationship: Address:[address] [place] [address] City:[facility] Phone: State/Zip Code:[place] [address] Email: Financial Information Financial Class: Primary Plan Desc:MEDICARE INPATIENT Primary Plan Number:[id number] Secondary Plan Desc:[employer]/MDR SUPPLEMENT Secondary Plan Number:[id number] Assessment Information CM Tape Coater Assessment CM Note CM Note Notes: Patient will be needing accommodation from our Case Management team. His had a bad experience at [facility] over a year ago, so he is requesting that he discharge home with home care. He has used [facility] services in the past, and he asked to have his same caregiver as prior, Susan. Date Signed: 03/08/2017 11:59 AM Electronically Signed By:Enedina Dougherty [facility] CM Progress Note CM Note CM Note Notes: PT rec HHC, pt requests [facility]. Referral sent in [employer], pt accepted for services. CM to follow. Date Signed: 03/16/2017 04:52 PM Electronically Signed By:MARIO Mcdonnell [facility] CM Progress Note CM Note CM Note Notes: Pt medically stable for d/c w [facility]. Orders sent in [employer]. Date Signed: 03/17/2017 03:35 PM Electronically Signed By:MARIO Mcdonnell Intervention Information Intervention Type:*IM-Signed Date of Service:03/17/2017 03:00 PM Patient Type:Inpatient Staff Member:Enedina Dougherty Hours: Discipline: Severity: Comment:
[2017-03-17] MEDS ORDERED: WARFARIN SODIUM 3 MG TAB PO ONE (16:00)
== END 2017-03-17 15:32 | disposition home health service (06) | DRG 470 ==
LOC: F3N 11:15
PROVIDERS: ADMIT Orthopaedic Surgery Sports Medicine; ATTEND Orthopaedic Surgery Sports Medicine
PROC: 0SR902A Replacement of Right Hip Joint with Metal on Polyethylene Synthetic Substitute, Uncemented, Open Approach (ICD-10-PCS; principal; 2017-03-15 13:00)
DX: M16.11 Unilateral primary osteoarthritis, right hip (principal); M87.051 Idiopathic aseptic necrosis of right femur; I10 Essential (primary) hypertension; J84.10 Pulmonary fibrosis, unspecified; Z99.81 Dependence on supplemental oxygen; N40.0 Benign prostatic hyperplasia without lower urinary tract symptoms; E78.00 Pure hypercholesterolemia, unspecified; Z95.3 Presence of xenogenic heart valve; Z85.528 Personal history of other malignant neoplasm of kidney
CPT/HCPCS: 97116-GP; 97161-GP; 97165-GO; 97535-GO; C1713; G8978-GP-CJ; G8979-GP-CI; G8987-GO-CJ; G8988-GO-CI; J0171; J0690; J1100; J1885; J2405; J2704; J2795; J3010

== ENCOUNTER → 2017-07-25 | Outpatient (CLI) | payer OTHER, MEDICARE | LOC: FIMAGING 08:52 | PROVIDERS: ATTEND Physician Assistant | DX: M25.551 Pain in right hip (principal); R93.8 Abnormal findings on diagnostic imaging of other specified body structures; Z96.641 Presence of right artificial hip joint; Z85.528 Personal history of other malignant neoplasm of kidney | CPT/HCPCS: 78315; A9503 ==

== ENCOUNTER → 2018-02-22 | Outpatient (CLI) | payer OTHER ==
[~2018-02-22] MED LIST changes: +IOPAMIDOL (ISOVUE-300) 100 ML BTL ONE; -ROPIVACAINE 0.2% 80 MG, EPINEPHrine 0.2 MG, KETOROLAC TROMETHAMINE 30 MG, morphINE 10 M... IU ONE; -ceFAZolin 2 GM/SWFI 2 GM/20 ML SYR IVP ONE
== END ==
LOC: FIMAGING 13:18
PROVIDERS: ATTEND Specialist
DX: Z13.89 Encounter for screening for other disorder (principal); C64.2 Malignant neoplasm of left kidney, except renal pelvis
CPT/HCPCS: 71046; Q9967

== ENCOUNTER → 2018-02-22 | Outpatient (CLI) | payer OTHER | LOC: FIMAGING 13:13 | PROVIDERS: ATTEND Specialist | DX: Z09 Encounter for follow-up examination after completed treatment for conditions other than malignant neoplasm (principal); N28.1 Cyst of kidney, acquired; I70.1 Atherosclerosis of renal artery; K86.9 Disease of pancreas, unspecified; K76.9 Liver disease, unspecified; Z85.528 Personal history of other malignant neoplasm of kidney; Z90.5 Acquired absence of kidney ==

== ENCOUNTER → 2018-03-02 | Outpatient (CLI) | payer OTHER | LOC: FIMAGING 12:42 | PROVIDERS: ATTEND Internal Medicine Pulmonary Disease | DX: J98.4 Other disorders of lung (principal) ==

== ENCOUNTER → 2018-03-05 | Outpatient (CLI) | payer OTHER | LOC: BHFA 09:15 | PROVIDERS: ATTEND Internal Medicine Cardiovascular Disease | DX: Z95.2 Presence of prosthetic heart valve (principal) ==

== ENCOUNTER 2018-04-10 16:07 | Observation (INO) | payer OTHER ==
--- NOTE | 2018-04-10 16:37 | EDPHY ---
General Time Seen by Provider: 04/10/18 16:26 Narrative: CHIEF COMPLAINT: Passed out, right hip injury HISTORY OF PRESENT ILLNESS: Patient presents per private vehicle with spouse with complaints of passing out and right hip injury. He and his states that over the past few days he has had several episodes of loss of consciousness. The common quickly. They are not dependent upon his ambulatory status or if he had recently stood up. They are not painful. He has no shortness of breath. They are very difficult for him to describe. He says is very different from vertigo these had the past. He has had 3 4 weak. He had 1 today just prior to arrival, the constant the fall on his right hip and potentially is head. He is amnestic to the exact details of the event. He has moderate to severe pain in the right hip, keeping him from ambulating. He has no radiating pain. No numbness tingling weakness. No back pain at any level. No saddle anesthesia. No incontinence of bowel bladder. He has minimal headache. No neck pain. No anticoagulants. He is also primary care physician earlier today reports an echocardiogram last year. He is status post aortic valve replacement, bovine. No anticoagulation. No other associated complaints or modifying factors. REVIEW OF SYSTEMS: 10 systems were reviewed and negative with the exception of the elements mentioned in the history of present illness. PCP: Dr. Honorio Zapata SPECIALISTS: Cardiology, Dr. Sam Lopez Cardiothoracic surgeon, Dr. Danielito Stahl, Dr. Ogden PAST MEDICAL HISTORY: Aortic stenosis status post replacement, idiopathic pulmonary fibrosis, mitral valve regurg, MIR, CAD, hypertension, bradycardia PAST SURGICAL HISTORY: Right hip EDE, aortic valve replacement bovine, SOCIAL HISTORY: Never smoker. 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 Lives independently with his spouse. FAMILY HISTORY: Noncontributory. No history of sudden cardiac EXAMINATION: Vitals: Triage VS reviewed. Well-appearing. General Appearance: Alert, no distress Head: normocephalic, atraumatic. No Epstein sign. No raccoon eyes. No depression deformity. Eyes: Bilateral arcus senilis. Pupils equal and round, no conjunctival pallor or injection ENT, Mouth: Mucous membranes moist Neck: Normal inspection, supple, non-tender. No crepitus or deformity. Respiratory: Lungs are clear to auscultation Cardiovascular: Bradycardic rate. Regular rhythm. Grade 1 systolic murmur. Gastrointestinal: Abdomen is soft and nontender Back: non-tender, no bony abnormalities Neurological: Cranial nerves 2-12 grossly intact. GCS 15. A&O, nonfocal. Light sensory symmetric in the upper lower extremities. No pronator drift. Normal [id number]. Difficult to test strength in the right hip due to pain. No altered mentation. Skin: Warm and dry, no rash. No petechiae or purpura. Extremities: Tenderness of the right greater trochanter and right inguinal canal. Unable to range the right hip fully active or passive due to pain. There is no tenderness of the remainder of the pelvis, right knee, right ankle or the right calcaneus. Psychiatric: Mood and affect normal DIFFERENTIAL DIAGNOSES: Including but not limited to hypertrophic cardiomyopathy, long QT, syncope, vertigo, CVA, vertebrobasilar syndrome MDM: 4:25 p.m. Syncopal episodes over the past few days with increasing frequency and now a right hip injury. He has no chest pain. He is awake alert. No acute distress. He is an bradycardic rate, which is chronic. No history of aortic stenosis and he is status post aortic valve replacement. EKG shows no acute ischemia or QT prolongation. There is a new right bundle branch block. I discussed case with Dr. Armstrong. I have ordered CT scans of the head cervical spine, chest and hip x-rays, laboratory studies including troponin. He is awake and alert. He is conversing appropriately with no altered mentation. 5:20 p.m. Laboratory studies thus far are within normal limits including negative troponin. Chest and hip x-ray are without acute findings. CT scans of the head and cervical spine are pending. 5:35 p.m. Notified by radiologist. CT scans of the head cervical spine reveal no acute findings. Chronic changes as noted. Patient re-evaluated. He is feeling well and still has pain in the right hip. We discussed admission to the hospital for cardiac monitoring further testing. He is comfortable this plan. 5:50 p.m. Case discussed with hospitalist Dr. Chen. He will be admitted to his service. He is admitted to observation status. Stable condition. EKG interpretation: Dr. Armstrong Sinus Waylon with right bundle branch block is new. Chronic left anterior fascicular block. Comparison made to August 2016 print SUPERVISION: Patient was independently examined, but I discussed the case with my secondary supervising physician Dr. Armstrong CONSULTATION: None - Diagnostics Imaging Results: Imaging Impressions Hip X-Ray 04/10/18 16:20 Impression: No acute osseous findings. Chest X-Ray 04/10/18 16:37 Impression: Hypoventilatory chest with stable interstitial prominence, with no acute findings. - History Smoking Status: Never smoked - Objective Vital Signs: Initial Vital Signs Temperature (C) 97.9 F 04/10/18 16:14 Heart Rate 54 L 04/10/18 16:14 Respiratory Rate 18 04/10/18 16:14 Blood Pressure 109/80 04/10/18 16:14 O2 Sat (%) 95 04/10/18 16:14 O2 Delivery Mode Room Air Allergies/Adverse Reactions: shellfish derived Allergy (Verified 04/10/18 16:13) Sulfa (Sulfonamide Antibiotics) Allergy (Verified 04/10/18 16:13) Rash Home Medications: Medication Instructions Recorded Herbals/Supplements -Info Only 1 ea PO DAILY 05/17/15 Doxazosin Mesylate [Cardura 4 MG 4 mg PO HS tab 03/17/17 (*)] Finasteride [Proscar 5 MG (*)] 5 mg PO HS tab 03/17/17 Hydrochlorothiazide [HCTZ (*)] 25 mg PO DAILY tab 03/17/17 Losartan Potassium [Cozaar 50 mg 100 mg PO DAILY tab 03/17/17 (*)] Laboratory Results: Laboratory Results 04/10/18 16:51 04/10/18 16:51 04/10/18 04/10/18 04/10/18 16:56 16:51 16:51 WBC 6.82 10^3/uL 10^3/uL (3.80-9.50) RBC 4.25 10^6/uL L 10^6/uL (4.40-6.38) Hgb 14.5 g/dL g/dL (13.7-17.5) Hct 41.0 % % (40.0-51.0) MCV 96.5 fL fL (81.5-99.8) MCH 34.1 pg pg (27.9-34.1) MCHC 35.4 g/dL g/dL (32.4-36.7) RDW 12.4 % % (11.5-15.2) Plt Count 188 10^3/uL 10^3/uL (150-400) MPV 9.4 fL fL (8.7-11.7) Neut % (Auto) 59.6 % % (39.3-74.2) Lymph % (Auto) 20.5 % % (15.0-45.0) [place] % (Auto) 14.2 % H % (4.5-13.0) Eos % (Auto) 4.4 % % (0.6-7.6) Baso % (Auto) 1.0 % % (0.3-1.7) Nucleat RBC Rel Count 0.0 % % (0.0-0.2) Absolute Neuts (auto) 4.06 10^3/uL 10^3/uL (1.70-6.50) Absolute Lymphs (auto) 1.40 10^3/uL 10^3/uL (1.00-3.00) Absolute Monos (auto) 0.97 10^3/uL H 10^3/uL (0.30-0.80) Absolute Eos (auto) 0.30 10^3/uL 10^3/uL (0.03-0.40) Absolute Basos (auto) 0.07 10^3/uL 10^3/uL (0.02-0.10) Absolute Nucleated RBC 0.00 10^3/uL 10^3/uL (0-0.01) Immature Gran % 0.3 % % (0.0-1.1) Immature Gran # 0.02 10^3/uL 10^3/uL (0.00-0.10) Sodium 138 mEq/L mEq/L (135-145) Potassium 4.0 mEq/L mEq/L (3.3-5.0) Chloride 103 mEq/L mEq/L (97-110) Carbon Dioxide 26 mEq/l mEq/l (22-31) Anion Gap 9 mEq/L mEq/L (6-14) BUN 28 mg/dL H mg/dL (7-23) Creatinine 1.2 mg/dL mg/dL (0.7-1.3) Estimated GFR 57 Glucose 114 mg/dL H mg/dL (70-100) Calcium 9.5 mg/dL mg/dL (8.5-10.4) Magnesium 2.1 mg/dL mg/dL (1.6-2.3) POC Troponin I 0.01 ng/mL ng/mL (0.00-0.08) Medications Given: Discontinued Medications Sodium Chloride (Ns) 500 mls @ 1,000 mls/hr IV EDNOW ONE PRN Reason: Protocol Stop: 04/10/18 17:08 Last Admin: 04/10/18 17:00 Dose: 500 mls Point of Care Test Results: Chemistry 04/10/18 16:56 POC Troponin I 0.01 ng/mL ng/mL (0.00-0.08) Departure - Departure Disposition: [facility] Inpatient Acute Clinical Impression: Acute right hip pain Syncope Qualifiers: Syncope type: unspecified Qualified Code(s): R55 - Syncope and collapse Condition: Good Referrals: Sukhwinder Zapata MD [Primary Care Provider] - As per Instructions Sam Lopez MD [Medical Doctor] - As per Instructions
[2018-04-10] MEDS ORDERED: NS 500 ML IV ONE (16:39)
[2018-04-10 17:01] LABS: PLATELET COUNT 188 10^3/uL (150-400)
--- NOTE | 2018-04-10 17:52 | CPEKG ---
Test Reason : OPEN Blood Pressure : / mmHG Vent. Rate : 051 BPM Atrial Rate : 051 BPM P-R Int : 208 ms QRS Dur : 104 ms QT Int : 467 ms P-R-T Axes : -02 -39 006 degrees QTc Int : 431 ms Sinus rhythm Incomplete RBBB and LAFB Low voltage, precordial leads Abnormal R-wave progression, early transition Left ventricular hypertrophy Confirmed by Aramis Baker ([id number]) on 04/10/2018 5:52:31 PM Referred By: Confirmed By:Aramis Baker
[2018-04-10] MEDS ORDERED: ALPRAZolam 0.5 MG TAB PO ONE (18:00)
[2018-04-10] MEDS ORDERED: ALPRAZolam 0.25 MG TAB ONE (18:10)
[2018-04-10] MEDS ORDERED: ACETAMINOPHEN 325 MG TAB PO PRN (19:09)
[2018-04-10] MEDS ORDERED: ONDANSETRON 4 MG/2 ML VIAL IVP PRN (19:09)
[2018-04-10] MEDS ORDERED: NS 1,000 ML IV SCH (19:15)
--- NOTE | 2018-04-10 19:32 | PDGENHP ---
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 I have reviewed the list and ordered appropriate medicines. ALLERGIES: Shellfish and sulfa drugs PHYSICAL EXAMINATION: Vital Signs: Ditto Machine Operator: Examination: General: alert, oriented, good mentation, relaxed Skin: warm, dry, good color, no rash HEENT: normal Neck: no mass or jvd Resps: relaxed Lungs: clear breath sounds Heart: regular, no murmur Abdomen: soft, nondistended, nontender, +BS, no mass Upper Extremities: normal Lower Extremities: no edema, warm No Bleeding or bruising Neurologic: normal speech/language, normal head grease maker, no focal weakness IV site: looks normal LABORATORY DATA: Unremarkable CBC Basic metabolic panel with elevated BUN which is actually chronic for him, today is at 28 RADIOLOGY STUDIES: I reviewed images from noncontrast CT of chest 6 weeks ago along with radiologist report. There was mild progression of his interstitial lung disease which by my reading does not appear very prominent, but notably there was not evidence of distended pulmonary vessels or right ventricle so pulmonary hypertension was not suspected. Chest x-ray done tonight is unremarkable other than evidence of his interstitial lung disease which again appears mild radiologically to me. 12 LEAD EKG: I read the tracing from the ER, sinus rhythm with borderline first-degree AV block, incomplete right bundle branch block, and left anterior fascicular block ASSESSMENT: * syncope, recurrent episodes with when yesterday 1 today, and increasing frequency of syncope and near-syncope spells over recent weeks * gradually progressive exertional dyspnea for 6 months * history of chronic hypoxemic respiratory failure, history of interstitial lung disease though by recent CT and chest x-rays this is radiologically minimal in my estimation * history of aortic bioprosthetic valve, states recent echo a month ago in clinic showed valve working well and seated well * 30-40% lad stenosis in August 2016 by angiogram * elevated BUN chronically, at his elevated baseline today; takes hydrochlorothiazide, losartan, and Avodart * bradycardia, and some heart rate instability, with heart rates room measured between 48 and 83 tonight in the ER; previous outpatient cardiac monitoring without arrhythmia, though patient self describes chronic bradycardia that he attributes to 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 He may be somewhat dehydrated with his elevated BUN and though not likely the entire cause of his trouble, the combination of hydrochlorothiazide losartan and Avodart may not be tolerated in his case. Interstitial lung disease could explain his progressive dyspnea, however it really does not look that severe to me on CT. Had a CT chest 6 weeks ago without signs of PE or pulmonary hypertension, but was noncontrast, would need to rule out PE. Waylon arrhythmia or other arrhythmias are certainly possible, but were not seen on a previous outpatient monitor. Progression of coronary disease is possible. Possibility of cerebrovascular disease would be considered, Doppler ultrasound in August 21 1016 without stenosis. Interstitial lung disease by CT scan and chest x-ray does not appear very prominent, though he requires home oxygen [place] PLANS: * [facility] admission but knee need to change to inpatient if has ongoing troubles here * CT angio chest to rule out PE * Cardiac monitoring here, and would recommend outpatient monitoring at home as well * Will review with Cardiology and see what his recent echocardiogram showed in clinic; would want to see his pulmonary pressures to make sure they are not going up * Consider further assessment of coronaries either with some type of stress or repeat angiograms * Stop his losartan and hydrochlorothiazide now, can be replaced with other blood pressure medicines as needed (EF has been good enough that he should not need angiotensin medicines) * Cardiology consult * Check orthostatic vital signs now * Will hydrate overnight and can recheck again in the morning if they are abnormal * Consideration can be given also for CT angio of head neck * History does not sound like seizure but if nothing else is found, eventually looking with EEG to be certain is reasonable I have reviewed the patient's case in detail with Russell Santoyo of the ER I have reviewed the patient's past medical records as part of this assessment, including past inpatient and outpatient medical records
[2018-04-10] MEDS ORDERED: traZODone 100 MG TAB PO SCH (21:00)
[2018-04-10] MEDS ORDERED: MELATONIN 3 MG TAB PO SCH (21:00)
[2018-04-10] MEDS ORDERED: DOXAZOSIN MESYLATE 4 MG TAB PO SCH (21:00)
--- NOTE | 2018-04-10 21:04 | PDGENHP ---
History and Physical History and Physical: CC: Syncope and dyspnea HISTORY: This patient mainly comes into the hospital today for assessment of syncope. He had a very sudden syncope today with complete loss of conscious and fall to the ground. He complains of some right-sided hip pain but has had x -ray without any sign of new injury there. Notably the patient sink opened yesterday as well both of these while he was at rest and standing. In addition he has had over the last 2 years quite a number of presyncopal spells which have been increasing in frequency particularly over the last 2-3 months and in the last few weeks he has had 6 actual loss of consciousness syncopes. Some of these are sudden without prodromal symptoms and some of them are preceded by a vaguely described dizziness that is not vertigo, but that is quite brief before he actually sink ups. There is never any chest pain, palpitations, acute neurologic symptoms otherwise. There has never any shortness of breath preceding these episodes. There is not really a history of exertional syncope per se. There is never any tongue biting, incontinence, or witnessed seizure activity. Notably the patient was having some of these presyncopal spells 2 years ago and was assessed by Cardiology and found to have aortic valvular disease for which he underwent bovine aortic valve replacement here in August 2016. At that time the patient had workup including echocardiogram, carotid Doppler ultrasound, coronary angiography. The only significant finding than was 30-40% mid LAD stenosis which was not treated other than with ongoing medical management. He states he last had an echocardiogram in the clinic a month ago that showed no new problems with his heart. In addition of all the above the patient notes several months of fairly significant exertional dyspnea. 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 Since then he has maintain significant physical activity including a lot of wood chopping and hauling and other very significant [place]. However he has gotten to the point where now walking up a flight of stairs is very difficult any stops sometimes before the top of the stairs to catch his breath. This is not associated with any angina symptom. He does have a history of oxygen need at his high [place] home, and has a history of interstitial lung disease and there is some debate about because of his interstitial lung disease. The patient has had frequent imaging and in fact had as noncontrast CT chest here 6 weeks ago which I reviewed and indeed he has interstitial disease but does not look radiologically very prominent. Notably however I do not see dilation of the pulmonary vessels or right ventricle to suggest pulmonary hypertension, and his previous echocardiograms have not shown pulmonary hypertension. (I do not have results of the echo from 1 month ago yet.) The patient has never been a smoker nor had asthma. He has not had significant anemia. He is visiting doctor jimena in [place] from pulmonology and he is considering other possible assessments for the lung disease. 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 I have reviewed the list and ordered appropriate medicines. ALLERGIES: Shellfish and sulfa drugs PHYSICAL EXAMINATION: Vital Signs: Para Machine Operator: Examination: General: alert, oriented, good mentation, relaxed Skin: warm, dry, good color, no rash HEENT: normal Neck: no mass or jvd Resps: relaxed Lungs: clear breath sounds Heart: regular, no murmur Abdomen: soft, nondistended, nontender, +BS, no mass Upper Extremities: normal Lower Extremities: no edema, warm No Bleeding or bruising Neurologic: normal speech/language, normal field reporter, no focal weakness IV site: looks normal LABORATORY DATA: Unremarkable CBC Basic metabolic panel with elevated BUN which is actually chronic for him, today is at 28 RADIOLOGY STUDIES: I reviewed images from noncontrast CT of chest 6 weeks ago along with radiologist report. There was mild progression of his interstitial lung disease which by my reading does not appear very prominent, but notably there was not evidence of distended pulmonary vessels or right ventricle so pulmonary hypertension was not suspected. Chest x-ray done tonight is unremarkable other than evidence of his interstitial lung disease which again appears mild radiologically to me. 12 LEAD EKG: I read the tracing from the ER, sinus rhythm with borderline first-degree AV block, incomplete right bundle branch block, and left anterior fascicular block ASSESSMENT: * syncope, recurrent episodes with when yesterday 1 today, and increasing frequency of syncope and near-syncope spells over recent weeks * gradually progressive exertional dyspnea for 6 months * history of chronic hypoxemic respiratory failure, history of interstitial lung disease though by recent CT and chest x-rays this is radiologically minimal in my estimation * history of aortic bioprosthetic valve, states recent echo a month ago in clinic showed valve working well and seated well * 30-40% lad stenosis in August 2016 by angiogram * elevated BUN chronically, at his elevated baseline today; takes hydrochlorothiazide, losartan, and Avodart * bradycardia, and some heart rate instability, with heart rates room measured between 48 and 83 tonight in the ER; previous outpatient cardiac monitoring without arrhythmia, though patient self describes chronic bradycardia that he attributes to 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 He may be somewhat dehydrated with his elevated BUN and though not likely the entire cause of his trouble, the combination of hydrochlorothiazide losartan and Avodart may not be tolerated in his case. Interstitial lung disease could explain his progressive dyspnea, however it really does not look that severe to me on CT. Had a CT chest 6 weeks ago without signs of PE or pulmonary hypertension, but was noncontrast, would need to rule out PE. Waylon arrhythmia or other arrhythmias are certainly possible, but were not seen on a previous outpatient monitor. Progression of coronary disease is possible. Possibility of cerebrovascular disease would be considered, Doppler ultrasound in August 21 1016 without stenosis. Interstitial lung disease by CT scan and chest x-ray does not appear very prominent, though he requires home oxygen [place] PLANS: * [facility] admission but knee need to change to inpatient if has ongoing troubles here * CT angio chest to rule out PE * Cardiac monitoring here, and would recommend outpatient monitoring at home as well * Will review with Cardiology and see what his recent echocardiogram showed in clinic; would want to see his pulmonary pressures to make sure they are not going up * Consider further assessment of coronaries either with some type of stress or repeat angiograms * Stop his losartan and hydrochlorothiazide now, can be replaced with other blood pressure medicines as needed (EF has been good enough that he should not need angiotensin medicines) * Cardiology consult * Check orthostatic vital signs now * Will hydrate overnight and can recheck again in the morning if they are abnormal * Consideration can be given also for CT angio of head neck * History does not sound like seizure but if nothing else is found, eventually looking with EEG to be certain is reasonable I have reviewed the patient's case in detail with Russell Santoyo of the ER I have reviewed the patient's past medical records as part of this assessment, including past inpatient and outpatient medical records
[2018-04-10] MEDS: ALPRAZolam 0.5 MG TAB PO PRN (22:04)
[2018-04-11] MEDS: ALPRAZolam 0.5 MG TAB PO PRN ×2 (03:18→09:52)
--- NOTE | 2018-04-11 09:56 | PDCARCONS ---
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 These are increasing in frequency and now associated with true syncope and trauma. Patient describes these events as sudden onset of mental fogginess. They almost feel like vertigo though the room does not spin. He is now than finding himself on the floor. He has had these episodes prone. He does not describe palpitations prior to the event. There increasing in frequency. His EKG shows bifascicular block. He has no history of prior dysrhythmia. He has known valvular heart disease. At that time in 2017 he was also found have mild nonobstructive coronary disease with luminal irregularities up to 30% . His LV function has been normal. Patient denies PND orthopnea. He has had no chest pain. Patient denies any loss of bowel or bladder function. He has had no neurologic complaints either before or after the spells. Patient also has been having worsening memory with loss of words as well as showing up in the room at the house not knowing why he entered. Medications: Ambulatory Orders Hydrochlorothiazide [HCTZ (*)] 25 mg PO DAILY tab 03/17/17 Losartan Potassium 100 mg PO DAILY 04/10/18 Medications Generic Name Dose Route Start Last Admin Trade Name Freq PRN Reason Stop Dose Admin Acetaminophen 650 mg 04/10/18 19:09 Tylenol PO 10/07/18 19:08 Q6 PRN Pain, Mild/Fever, Can Take PO Alprazolam 0.5 mg 04/10/18 21:01 04/11/18 09:52 Xanax PO 10/07/18 21:00 0.5 mg TID PRN Anxiety Doxazosin Mesylate 4 mg 04/10/18 21:00 04/10/18 21:42 Cardura PO 10/07/18 20:59 4 mg HS AMBER Melatonin 3 mg 04/10/18 21:00 04/10/18 21:42 Melatonin PO 10/07/18 20:59 3 mg HS AMBER Ondansetron HCl 4 mg 04/10/18 19:09 Zofran IVP 10/07/18 19:08 Q4 PRN Nausea/Vomiting, Can't Take PO Rosuvastatin Calcium 5 mg 04/12/18 09:00 Crestor PO 10/09/18 08:59 Q2D AMBER Sodium Chloride 1,000 mls @ 75 mls/hr 04/10/18 19:15 04/10/18 21:42 Ns IV 10/07/18 19:14 1,000 mls CONT AMBER Trazodone HCl 100 mg 04/10/18 21:00 04/10/18 21:42 Trazodone PO 10/07/18 20:59 100 mg HS [facility] History Information - Allergies/Home Medication List Allergies/Adverse Reactions: shellfish derived Allergy (Verified 04/10/18 16:13) Sulfa (Sulfonamide Antibiotics) Allergy (Verified 04/10/18 16:13) Rash Home Medications: ALPRAZolam [Xanax 0.5 MG (*)] 0.5 mg PO TID PRN 04/10/18 [Last Taken 04/09/18 HS ] Losartan Potassium 100 mg PO DAILY 04/10/18 [Last Taken 04/10/18] Rosuvastatin Calcium 5 mg PO Q2D 04/10/18 [Last Taken 04/10/18] traZODone [traZODONE 100MG (*)] 100 mg PO HS 04/10/18 [Last Taken 04/09/18] traZODone [traZODONE 100MG (*)] 100 mg PO HS PRN 04/10/18 [Last Taken Unknown] Past Medical History: - Past Medical History coronary artery disease, hyperlipidemia - Surgical History Additional surgical history: Aortic valve replacement - Family History Positive for: non-pertinent - Social History Smoking Status: Never smoked Physical Exam Physical Exam: Temp Pulse Resp BP Pulse Ox 36.6 C 47 L 18 143/60 H 95 04/11/18 08:00 04/11/18 08:00 04/11/18 08:00 04/11/18 08:00 04/11/18 08:00 O2 (L/minute) 2 Constitutional: no apparent distress, not in pain Eyes: PERRL, anicteric sclera, No icteric sclera Ears, Nose, Mouth, Throat: moist mucous membranes Cardiovascular: regular rate and rhythym, systolic murmur, pulses symmetric bilaterally, No JVD Peripheral Pulses: 1+: carotid (R), carotid (L), femoral (R), femoral (L), dorsalis-pedis (R), dorsalis-pedis (L) Respiratory: no respiratory distress, reduced air movement, inspiratory crackles Gastrointestinal: normoactive bowel sounds, soft, non-tender abdomen, no palpable masses Genitourinary: no bladder fullness Skin: warm, erythema, other (Malar erythema) Musculoskeletal: full muscle strength Neurologic: AAOx3, No facial droop Psychiatric: interacting appropriately, not anxious Lymph, Heme, Immunologic: no cervical LAD, no supraclavicular LAD Lab and Imaging 04/10/18 16:51 04/11/18 03:23 WBC 6.82 10^3/uL (3.80-9.50) 04/10/18 16:51 RBC 4.25 10^6/uL (4.40-6.38) L 04/10/18 16:51 Hgb 14.5 g/dL (13.7-17.5) 04/10/18 16:51 Hct 41.0 % (40.0-51.0) 04/10/18 16:51 MCV 96.5 fL (81.5-99.8) 04/10/18 16:51 MCH 34.1 pg (27.9-34.1) 04/10/18 16:51 MCHC 35.4 g/dL (32.4-36.7) 04/10/18 16:51 RDW 12.4 % (11.5-15.2) 04/10/18 16:51 Plt Count 188 10^3/uL (150-400) 04/10/18 16:51 MPV 9.4 fL (8.7-11.7) 04/10/18 16:51 Neut % (Auto) 59.6 % (39.3-74.2) 04/10/18 16:51 Lymph % (Auto) 20.5 % (15.0-45.0) 04/10/18 16:51 Clark % (Auto) 14.2 % (4.5-13.0) H 04/10/18 16:51 Eos % (Auto) 4.4 % (0.6-7.6) 04/10/18 16:51 Baso % (Auto) 1.0 % (0.3-1.7) 04/10/18 16:51 Nucleat RBC Rel Count 0.0 % (0.0-0.2) 04/10/18 16:51 Absolute Neuts (auto) 4.06 10^3/uL (1.70-6.50) 04/10/18 16:51 Absolute Lymphs (auto) 1.40 10^3/uL (1.00-3.00) 04/10/18 16:51 Absolute Monos (auto) 0.97 10^3/uL (0.30-0.80) H 04/10/18 16:51 Absolute Eos (auto) 0.30 10^3/uL (0.03-0.40) 04/10/18 16:51 Absolute Basos (auto) 0.07 10^3/uL (0.02-0.10) 04/10/18 16:51 Absolute Nucleated RBC 0.00 10^3/uL (0-0.01) 04/10/18 16:51 Immature Gran % 0.3 % (0.0-1.1) 04/10/18 16:51 Immature Gran # 0.02 10^3/uL (0.00-0.10) 04/10/18 16:51 Sodium 139 mEq/L (135-145) 04/11/18 03:23 Potassium 4.2 mEq/L (3.3-5.0) 04/11/18 03:23 Chloride 109 mEq/L (97-110) 04/11/18 03:23 Carbon Dioxide 26 mEq/l (22-31) 04/11/18 03:23 Anion Gap 4 mEq/L (6-14) L 04/11/18 03:23 BUN 25 mg/dL (7-23) H 04/11/18 03:23 Creatinine 1.1 mg/dL (0.7-1.3) 04/11/18 03:23 Estimated GFR > 60 04/11/18 03:23 Glucose 98 mg/dL (70-100) 04/11/18 03:23 Calcium 8.7 mg/dL (8.5-10.4) 04/11/18 03:23 Magnesium 2.1 mg/dL (1.6-2.3) 04/10/18 16:51 POC Troponin I 0.01 ng/mL (0.00-0.08) 04/10/18 16:56 TSH 11.900 uIU/mL (0.465-4.680) H 04/11/18 03:23 EKG additional interpertation: EKG reveals sinus rhythm with left anterior fascicular block, right bundle branch block, LVH. A/P Assessment: Impression: Recurrent syncope, episodes in the prone position, in the setting of aortic valve surgery, bifascicular block. Patient clearly is at risk for both [place] and tachyarrhythmias based on his previous history. Telemetry has not revealed etiology. Clearly we need to monitor him more aggressively. Discussed implantation of a loop recorder versus Holter monitoring versus 30 day monitor. Based on his symptoms I would recommend an implantable loop recorder. His aortic valve prosthesis is working properly. Will reconfirm this by review echocardiogram. He has known coronary disease on statin therapy and clinical history is not concerning for an ACS. Left ventricular function has been preserved. While syncope in the setting of bifascicular block is a class 2B indication for pacing, I would like to know for sure that this would help him prior to considerations for implantation. Plan: Implantable loop recorder today. Review of Systems Review of Systems: - Review of Systems Constitutional: denies: chills, fever, malaise EENTM: denies: eye pain, blurred vision Respiratory: shortness of breath. denies: cough, wheezing Cardiac: lightheadedness, syncope. denies: chest pain, edema, irregular heart rate, palpitations Gastrointestinal/Abdominal: no symptoms reported Genitourinary: no symptoms Musculoskelatal: no symptoms Skin: no symptoms Neurological: denies: headache, numbness, paresthesia, seizure Hematologic/Lymphatic: no symptoms reported Immunologic/allergic: no symptoms reported Past Medical History PMH: - Personal History Current Tetanus Diphtheria and Acellular Pertussis (TDAP): Yes Tetanus Vaccine Date: 2005 - Medical/Surgical History Hx Asthma: No Hx Chronic Respiratory Disease: Yes Hx Cardiac Disease: Yes Hx Diabetes: No Hx Renal Disease: No Hx Alcoholism: No Hx Cirrhosis: No Hx HIV/AIDS: No Hx Splenectomy or Spleen Trauma: No 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
[2018-04-11] MEDS ORDERED: LIDOCAINE 1% 300 MG/30 ML SDV SC ONE (09:59)
--- NOTE | 2018-04-11 10:46 | PDCTREPORT ---
Cardiothoracic Procedure Rpt Cardiothoracic Procedure Report: Procedure: Insertion of loop recorder. Indication: Syncope with bifascicular block. After obtaining informed consent, the left anterior chest was sterilely prepped and draped. A small area on the anterior chest was marked. A stab wound was made with a 10 blade. Using blunt dissection and the insertion tool, the loop recorded was placed under the skin. Two olivia were used to close the stab wound. Conclusion: Successful insertion of a loop recorder. See attached computer sheet for the details of the [place] device. Patient Problems: Problems Problem Status Onset Renal mass Acute Syncope Acute Acute right hip pain Acute Acute blood loss anemia Acute S/P aortic valve replacement with bioprosthetic valve Acute ~09/21/16 Chronic diastolic congestive heart failure Acute Severe aortic valve regurgitation Acute Pulmonary fibrosis Chronic
[2018-04-11 11:28] VITALS: BP 138/81
--- NOTE | 2018-04-11 14:01 | PDDCSUM ---
Discharge Summary Discharge Summary: HPI/HOSPITAL COURSE 88 yo male admitted with syncope. Several recent episodes. The pt was evaluated by Cardiology. A loop recorder has been placed. He will f/u with Cardiology. BP meds have been stopped. He did not have syncope, presyncope, or other cardiac events while hospitalized during this admission DDX: * syncope, recurrent episodes with when yesterday 1 today, and increasing frequency of syncope and near-syncope spells over recent weeks * history of chronic hypoxemic respiratory failure, history of interstitial lung disease though by recent CT and chest x-rays this is radiologically minimal in my estimation * history of aortic bioprosthetic valve, states recent echo a month ago in clinic showed valve working well and seated well * 30-40% lad stenosis in August 2016 by angiogram * elevated BUN chronically * bradycardia Exam: NAD AAOX3 RRR NORMAL WORK OF BREATHING NO EDEMA S//NT/ND MEDS: SEE MED REC F/U: PER ABOVE TOTAL TIME SPENT ON D/C IS 35 MINS
--- NOTE | 2018-04-11 14:10 | ASMTCMCOM ---
CM Note CM Note Notes: Pts case discussed in tx rounds. Pt is a 88 y/o man admitted for syncope and right hip pain. Pt will dc without any needs. JEROMY spoke to pts nurse Rita. CM available for changes. Plan: Independent Date Signed: 04/11/2018 02:09 PM Electronically Signed By:HOLLY Claudio
--- NOTE | 2018-04-11 14:11 | ASMTLACE ---
LACE Length of stay for Answers: 1 day current admission Acuity / Level of Answers: No Care: Did the patient have an inpatient admission? Comorbidities - select Answers: Coronary Artery Disease all that apply Other Notes: HTN; HLD # of Emergency department Answers: 1-2 visits in the last 6 months Score: 5 Date Signed: 04/11/2018 02:10 PM Electronically Signed By:HOLLY Claudio
[2018-04-12] MEDS ORDERED: ROSUVASTATIN CALCIUM 10 MG TAB PO SCH (09:00)
== END 2018-04-11 14:28 | disposition home or self-care (01) ==
LOC: F2W 20:29
PROVIDERS: ADMIT Internal Medicine; ATTEND Internal Medicine
PROC: 0JH60PZ Insertion of Cardiac Rhythm Related Device into Chest Subcutaneous Tissue and Fascia, Open Approach (ICD-10-PCS; principal; 2018-04-11)
DX: R55 Syncope and collapse (principal); Z95.2 Presence of prosthetic heart valve; I45.2 Bifascicular block; I25.10 Atherosclerotic heart disease of native coronary artery without angina pectoris
CPT/HCPCS: 33282; 70450; 71045; 72125; 73502; 93005; 99285; C1764; G0378; 84484-PO

== ENCOUNTER → 2018-08-17 | Outpatient (CLI) | payer OTHER ==
[~2018-08-17] MED LIST changes: -IOPAMIDOL (ISOVUE-300) 100 ML BTL ONE; +IOPAMIDOL (ISOVUE-370) 150 ML BTL IV ONE
== END ==
LOC: FIMAGING 12:43
PROVIDERS: ATTEND Psychiatry & Neurology Neurology
DX: I25.9 Chronic ischemic heart disease, unspecified (principal); I65.23 Occlusion and stenosis of bilateral carotid arteries
CPT/HCPCS: 70450; 70496; 70498; Q9967

== ENCOUNTER 2018-08-19 21:31 | Emergency (ER) | payer OTHER ==
--- NOTE | 2018-08-19 22:10 | EDPHY ---
H & P Stated Complaint: fever, chill, cough, FLU A + 2 weeks ago Time Seen by Provider: 08/19/18 21:50 HPI/ROS: Chief Complaint: Fevers, chills, cough HPI: 88-year-old male with a history of aortic valve replacement with bovine valve, renal cancer status post nephrectomy. Patient is presenting complaining of fevers, chills, cough, back pain and headache. Patient was diagnosed with influenza A 2 weeks ago and underwent a course of Tamiflu. Over the course of the last few days he has had worsening cough which is now more productive of a greenish sputum. Course the last day developed pain in his back primarily in his right side. Some shortness of breath. Worsening headache, chills. Headache was not sudden onset. This med and 11/28. Not the worst headache of his life. No neck pain or stiffness. No skin rash. No abdominal pain. No nausea or vomiting. ROS: 10 systems were reviewed and were negative except those elements noted in the HPI. PMH: Aortic valve replacement with a bovine valve, renal cancer status post nephrectomy Social History: No smoking, no alcohol, no recreational drug use Family History: non-contributory Physical Exam: Gen: Awake, Alert, No Distress HEENT: Nose: no rhinorrhea Eyes: PERRLA, EOMI Mouth: Moist mucosa Neck: Supple, no JVD Chest: nontender, crackles at the right base, no wheeze Heart: S1, S2 normal, no murmur Abd: Soft, non-tender, no guarding Back: no CVA tenderness, no midline tenderness Ext: no edema, non-tender Skin: no rash Neuro: CN II-XII intact, Sensation grossly intact, Strength 5/5 in bilateral upper and lower extremities - Personal History Tetanus Vaccine Date: 2005 - Medical/Surgical History Hx Asthma: No Hx Chronic Respiratory Disease: Yes Hx Diabetes: No Hx Cardiac Disease: Yes Hx Renal Disease: No Hx Cirrhosis: No Hx Alcoholism: No Hx HIV/AIDS: No Hx Splenectomy or Spleen Trauma: No 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, aortic vavle replacement, sleep apnea, CAD, HTN, bradycardia, right hip replacement and fx - Social History Smoking Status: Never smoked Constitutional: Initial Vital Signs Temperature (C) 36.5 C 08/19/18 21:35 Heart Rate 58 L 08/19/18 21:35 Respiratory Rate 18 08/19/18 21:35 Blood Pressure 171/85 H 08/19/18 21:35 O2 Sat (%) 95 08/19/18 21:35 O2 Delivery Mode Room Air Allergies/Adverse Reactions: shellfish derived Allergy (Verified 08/19/18 21:34) Sulfa (Sulfonamide Antibiotics) Allergy (Verified 08/19/18 21:34) Rash Home Medications: Medication Instructions Recorded Doxazosin Mesylate [Cardura 4 MG 4 mg PO HS tab 03/17/17 (*)] ALPRAZolam [Xanax 0.5 MG (*)] 0.5 mg PO TID PRN 04/10/18 Rosuvastatin Calcium 5 mg PO Q2D 04/10/18 traZODone [traZODONE 100MG (*)] 100 mg PO HS 04/10/18 traZODone [traZODONE 100MG (*)] 100 mg PO HS PRN 04/10/18 Aspirin EC [Aspirin EC 81 mg (*)] 81 mg PO DAILY 04/11/18 Medical Decision Making - Diagnostics Imaging Results: Imaging Impressions Chest X-Ray 08/19/18 22:10 Impression: 1. Findings consistent with airways disease noted. 2. Basilar atelectasis. 3. Postoperative changes of open heart surgery. ED Course/Re-evaluation: 80-year-old male presenting with cough chills and headache. Chest x-ray shows no evidence of infiltrate. His oxygen saturations are excellent. Vital signs are normal. CBC is normal. Chemistries unremarkable and at his baseline. Patient's pain is improved dramatically after IV Toradol. No evidence of a focal bacterial infection. Patient has normal vital signs and is comfortable. No evidence of acute bacteremia focal infection. Will discharge with follow-up with primary care physician, return for any concerns. - Data Points Laboratory Results: Laboratory Results 08/19/18 22:15 08/19/18 22:15 08/19/18 08/19/18 08/19/18 22:15 22:15 22:05 WBC 7.95 10^3/uL 10^3/uL (3.80-9.50) RBC 4.59 10^6/uL 10^6/uL (4.40-6.38) Hgb 15.5 g/dL g/dL (13.7-17.5) Hct 44.0 % % (40.0-51.0) MCV 95.9 fL fL (81.5-99.8) MCH 33.8 pg pg (27.9-34.1) MCHC 35.2 g/dL g/dL (32.4-36.7) RDW 12.3 % % (11.5-15.2) Plt Count 174 10^3/uL 10^3/uL (150-400) MPV 9.2 fL fL (8.7-11.7) Neut % (Auto) 60.1 % % (39.3-74.2) Lymph % (Auto) 21.6 % % (15.0-45.0) Hartley % (Auto) 14.3 % H % (4.5-13.0) Eos % (Auto) 2.6 % % (0.6-7.6) Baso % (Auto) 1.1 % % (0.3-1.7) Nucleat RBC Rel Count 0.0 % % (0.0-0.2) Absolute Neuts (auto) 4.77 10^3/uL 10^3/uL (1.70-6.50) Absolute Lymphs (auto) 1.72 10^3/uL 10^3/uL (1.00-3.00) Absolute Monos (auto) 1.14 10^3/uL H 10^3/uL (0.30-0.80) Absolute Eos (auto) 0.21 10^3/uL 10^3/uL (0.03-0.40) Absolute Basos (auto) 0.09 10^3/uL 10^3/uL (0.02-0.10) Absolute Nucleated RBC 0.00 10^3/uL 10^3/uL (0-0.01) Immature Gran % 0.3 % % (0.0-1.1) Immature Gran # 0.02 10^3/uL 10^3/uL (0.00-0.10) Sodium 139 mEq/L mEq/L (135-145) Potassium 4.0 mEq/L mEq/L (3.5-5.2) Chloride 105 mEq/L mEq/L (97-110) Carbon Dioxide 24 mEq/l mEq/l (22-31) Anion Gap 10 mEq/L mEq/L (6-14) BUN 24 mg/dL H mg/dL (7-23) Creatinine 1.5 mg/dL H mg/dL (0.7-1.3) Estimated GFR 44 Glucose 106 mg/dL H mg/dL (70-100) Calcium 9.2 mg/dL mg/dL (8.5-10.4) Urine Color YELLOW Urine Appearance CLEAR Urine pH 7.0 (5.0-7.5) Ur Specific [place] 1.018 (1.002-1.030) Urine Protein NEGATIVE (NEGATIVE) Urine Ketones NEGATIVE (NEGATIVE) Urine Blood NEGATIVE (NEGATIVE) Urine Nitrate NEGATIVE (NEGATIVE) Urine Bilirubin NEGATIVE (NEGATIVE) Urine Urobilinogen 2.0 EU H EU (0.2-1.0) Ur Leukocyte Esterase NEGATIVE (NEGATIVE) Urine Glucose NEGATIVE (NEGATIVE) Medications Given: Discontinued Medications Ketorolac Tromethamine (Toradol) 15 mg IVP EDNOW ONE Stop: 08/20/18 00:01 Last Admin: 08/20/18 00:04 Dose: 15 mg Departure - Departure Disposition: Home, Routine, Self-Care Clinical Impression: Viral syndrome Condition: Good Instructions: Viral Syndrome (ED) Additional Instructions: Follow up with her primary care physician in 2-3 days for further evaluation. Alternate acetaminophen (1000 mg) with ibuprofen (400 mg) every 4 hours as needed for fevers, chills, aches or pain. Return to the emergency department for worsening headache, fevers or chills, cough, nausea or vomiting, or any other concerns. Referrals: Tejas Perez MD [Primary Care Provider] - As per Instructions
[2018-08-19 22:27] LABS: PLATELET COUNT 174 10^3/uL (150-400)
[2018-08-19 23:48] VITALS: BP 111/79
[2018-08-20] MEDS ORDERED: KETOROLAC 15 MG/1 ML SDV IVP ONE
== END 2018-08-20 01:26 | disposition home or self-care (01) ==
DX: B34.9 Viral infection, unspecified (principal); I25.10 Atherosclerotic heart disease of native coronary artery without angina pectoris; Z95.2 Presence of prosthetic heart valve
CPT/HCPCS: 71046; 96374; 99284; J1885

== ENCOUNTER 2018-08-23 10:25 | Emergency (ER) | payer OTHER ==
[2018-08-23] MEDS ORDERED: NS 1,000 ML IV ONE (10:42)
--- NOTE | 2018-08-23 10:54 | EDPHY ---
H & P Stated Complaint: santo seen monday for same Time Seen by Provider: 08/23/18 10:31 HPI/ROS: Chief Complaint: Headache HPI: 80-year-old male is presenting emergency department complaining of headache. I saw him 4 days ago for the same. At that time he had URI symptoms , subjective fever, cough. He had improved with Toradol. He says the cough and the chills have resolved but the headache has returned. Is 01/29. He was seen by his primary care physician today sent him in for further evaluation. The patient recently had a CT scan of his head with CT angiogram of the head neck 1 week ago for evaluation of syncopal episodes. These were normal. Patient developed this headache the following day. He did have relief when he was in emergency with Toradol but the headache returned the following day. Is describing his pain in the top of his head. It is now very painful to touch bilaterally in primarily in his scalp. He says he feels very superficial not deep in. Has had some nausea vomiting secondary to pain. No fevers or chills. No neck pain or stiffness. ROS: 10 systems were reviewed and were negative except those elements noted in the HPI. PMH: Aortic valve replacement with bovine valve, renal cell cancer status post nephrectomy Social History: No smoking, no alcohol, no recreational drug use Family History: non-contributory Physical Exam: Gen: Awake, Alert, No Distress HEENT: Scalp is bilateral tenderness with tenderness over the bilateral temporal arteries. There is no erythema. There is no palpable cord. It is not warm. Nose: no rhinorrhea Eyes: PERRLA, EOMI Mouth: Moist mucosa Neck: Supple, no JVD Chest: nontender, lungs clear to auscultation Heart: S1, S2 normal, no murmur Abd: Soft, non-tender, no guarding Back: no CVA tenderness, no midline tenderness Ext: no edema, non-tender Skin: no rash Neuro: CN II-XII intact, Sensation grossly intact, Strength 5/5 in bilateral upper and lower extremities - Personal History Current Tetanus Diphtheria and Acellular Pertussis (TDAP): Yes Tetanus Vaccine Date: 2005 - Medical/Surgical History Hx Asthma: No Hx Chronic Respiratory Disease: Yes Hx Diabetes: No Hx Cardiac Disease: Yes Hx Renal Disease: No Hx Cirrhosis: No Hx Alcoholism: No Hx HIV/AIDS: No Hx Splenectomy or Spleen Trauma: No 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, aortic vavle replacement, sleep apnea, CAD, HTN, bradycardia, right hip replacement and fx - Social History Smoking Status: Never smoked Constitutional: Initial Vital Signs Temperature (C) 36.6 C 08/23/18 10:27 Heart Rate 51 L 08/23/18 10:27 Respiratory Rate 18 08/23/18 10:27 Blood Pressure 180/76 H 08/23/18 10:27 O2 Sat (%) 95 08/23/18 10:27 O2 Delivery Mode Room Air O2 (L/minute) 2 Allergies/Adverse Reactions: shellfish derived Allergy (Verified 08/23/18 10:27) Sulfa (Sulfonamide Antibiotics) Allergy (Verified 08/23/18 10:27) Rash Home Medications: Medication Instructions Recorded Doxazosin Mesylate [Cardura 4 MG 4 mg PO HS tab 03/17/17 (*)] ALPRAZolam [Xanax 0.5 MG (*)] 0.5 mg PO TID PRN 04/10/18 Rosuvastatin Calcium 5 mg PO Q2D 04/10/18 traZODone [traZODONE 100MG (*)] 100 mg PO HS 04/10/18 traZODone [traZODONE 100MG (*)] 100 mg PO HS PRN 04/10/18 Aspirin EC [Aspirin EC 81 mg (*)] 81 mg PO DAILY 04/11/18 Medical Decision Making ED Course/Re-evaluation: Of 88-year-old male presenting with headache, primarily scalp pain. He had a CT angiogram of the head and neck last Monday for evaluation of syncopal episodes. These were unremarkable. Headache tomorrow after that. I saw the patient 4 days ago with a headache and flu-like symptoms. At that time headache resolved with Toradol. Headache is described this pain in his scalp and he does have tenderness. His ESR is normal however indicating that temporal arteritis is unlikely. I have discussed with Dr. Hoskins, neurology. He feels that given the recent CT angiogram which was normal that the likelihood of aneurysmal bleeding is low. He does not feel any further imaging is indicated. We have also discussed possibilities of infection. Patient is not meningitic, has a normal white count and is afebrile. He also agrees that he does not feel the patient needs an LP at this time. Dr. Hoskins believes the patient's symptoms are likely secondary to reaction to the IV contrast from the angiogram. He has seen this in the past. He is recommending a prednisone taper and follow up in his office next week. 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 Will give him prednisone now and reassess. An hour and half after receiving the prednisone patient states that his symptoms have completely resolved. He is headache free. He is currently without complaint. The plan will be to discharge with a prednisone taper which I have provided on the handwritten prescription. He will follow up with Dr. Hoskins next week. - Data Points Laboratory Results: Laboratory Results 08/23/18 11:01 08/23/18 11:01 Medications Given: Discontinued Medications Sodium Chloride (Ns) 1,000 mls @ 0 mls/hr IV ONCE ONE; Wide Open PRN Reason: Protocol Stop: 08/23/18 10:43 Last Admin: 08/23/18 10:53 Dose: 1,000 mls Morphine Sulfate (Morphine) 4 mg IVP ONCE ONE Stop: 08/23/18 10:43 Last Admin: 08/23/18 10:54 Dose: 4 mg Morphine Sulfate (Morphine) 2 mg IVP EDNOW ONE Stop: 08/23/18 11:12 Last Admin: 08/23/18 11:14 Dose: 2 mg Ondansetron HCl (Zofran) 4 mg IVP EDNOW ONE Stop: 08/23/18 11:00 Last Admin: 08/23/18 11:00 Dose: 4 mg Prednisone (Prednisone) 60 mg PO EDNOW ONE Stop: 08/23/18 12:51 Last Admin: 08/23/18 13:16 Dose: 60 mg Departure - Departure Disposition: Home, Routine, Self-Care Clinical Impression: Headache Condition: Good Instructions: Acute Headache (ED) Additional Instructions: Please take her prednisone taper as prescribed. Follow-up with Dr. Hoskins, neurology, in 3-4 days for re-evaluation. Return to the emergency department for increasing headache, fevers, neck pain, vomiting, or any other concerns. Referrals: ELLIOT MILLER [Other] - As per Instructions Hipolito Hoskins MD [Medical Doctor] - As per Instructions
[2018-08-23] MEDS ORDERED: ONDANSETRON 4 MG/2 ML VIAL ONE (10:58)
[2018-08-23] MEDS ORDERED: ONDANSETRON 4 MG/2 ML VIAL IVP ONE (10:59)
[2018-08-23 11:09] LABS: PLATELET COUNT 187 10^3/uL (150-400)
[2018-08-23] MEDS ORDERED: predniSONE 20 MG TAB PO ONE (12:50)
[2018-08-23 14:57] VITALS: BP 151/74
== END 2018-08-23 14:57 | disposition home or self-care (01) ==
DX: R51 Headache (principal)
CPT/HCPCS: 96361; 96374; 96375; 99284; J2270; J2405; J7512

== ENCOUNTER → 2018-09-05 | Outpatient (CLI) | payer OTHER | LOC: FCPNEURO 10:29 ==

== ENCOUNTER → 2018-09-22 | Outpatient (CLI) | payer OTHER | LOC: FIMAGING 14:22 | PROVIDERS: ATTEND Internal Medicine Pulmonary Disease | DX: J98.4 Other disorders of lung (principal) ==

== ENCOUNTER 2018-11-15 04:10 | Observation (INO) | payer OTHER | END 2018-11-16 14:48 | disposition home or self-care (01) | LOC: F3E 15:00 ==